=== PATIENT | female | born 1950 | race Caucasian/White ===

== ENCOUNTER → 2020-02-17 14:39 | Outpatient (CLI) | payer MEDICARE, OTHER, SELFPAY ==
--- NOTE | ~2020-02-17 | MM_ITS ---
EXAMINATION: MM screening ana BI w jose l HISTORY: Screening mammogram TECHNIQUE: Craniocaudal and mediolateral oblique 3-D tomosynthesis images were obtained and synthetic 2-D images were generated. CAD analysis was submitted and interpreted. COMPARISON: 09/19/2018, 09/04/2017, 02/03/2016 bilateral digital screening mammogram examinations BREAST PARENCHYMAL COMPOSITION: There are scattered areas of fibroglandular density. FINDINGS: Stable mild fibroglandular asymmetry. Biopsy markers are noted bilaterally. History of prio r bilateral breast benign biopsies. There is no evidence of suspicious mass, calcification, or shana ectural distortion to suggest malignancy in either breast. There has been no suspicious interval devine ge. IMPRESSION: 1. No mammographic evidence of malignancy. 2. Recommend routine screening mammography in one year. BI-RADS Category 2: Benign finding(s). Reviewed, dictated and finalized at location A.
== END ==
PROVIDERS: Visit Provider Nurse Practitioner
DX: Z12.31 Encounter for screening mammogram for malignant neoplasm of breast (principal)
CPT/HCPCS: 77063; 77067

== ENCOUNTER 2020-11-23 10:15 | Outpatient (RCR) | payer MEDICARE, OTHER, SELFPAY ==
--- NOTE | 2020-10-26 14:48 | PTOPEVAL ---
PHYSICAL THERAPY EVALUATION Thank you for referring Aimee Prieto to [facility].? Ofelia was evaluated for the dx of left wrist/metacarpal fx's. The patient is scheduled to be seen for therapy?2 x/week for 4 weeks. Please review, sign, date and return this plan of care AZAEL. I agree with and certify that the following plan of care is medically necessary. Referring Physician Date Attending Provider: Sumit Savage MD *PT Outpatient Evaluation Start: 10/26/20 12:30 Freq: Status: Active Protocol: Document 10/26/20 13:58 MLV (Rec: 10/26/20 14:43 MLV [id number]) Therapy Assessment Status Assessment Status Assessment Status Evaluation Evaluation Information Problem Diagnosis left hand metacarpal x 2 fx's, radial fx Onset 08/21/20 Cause tripped stepping up onto a curb and fell Additional Evaluation Detail The patient reports no issues with her left wrist or hand prior to falling. After the fall, the patient was put in a removable cast but did not require surgery. 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 The patient does the housework and some yardwork, both are currently modified or having family doing tasks. Diagnostic Tests X-Rays For This Problem Yes: multiple fx's; bone growth noted Pain Assessment Timing of Pain Assessment Timing of Pain Assessment Assessment Pain Scale Pain Scale Used Numeric (1 - 10) Self Report Pain Assessment Left Lateral Hand(s) Reported Pain Level 0 Pain Frequency Intermittent Other Pain Description bumping hand is 7 of 10 pain Pain Score Pain Score 0: Self Report Interventions Used Interventions Used By Clinicians Education Other Alleviating Interventions guarding Upper Extremity Range of Motion General Upper Extremity Range of Motion Gross Upper Extremity Range of Motion wrist active motion: right Comments flexion 67', extension 58', radial deviation 10', ulnar deviation 38'. Thumb abduction 62', opposition to 5th digit palmar crease , 53'. Finger motions WNL's left wrist; wrist extension 48
--- NOTE | 2020-11-07 08:30 | PCPTNOTE ---
Patient called & cancelled scheduled appointment this date-left message.
--- NOTE | 2020-11-23 11:06 | PTOPEVAL ---
PHYSICAL THERAPY DISCHARGE/RE-ASSESSMENT Thank you for referring Aimee Prieto to [facility] Ofelia has completed 8 visits for the dx of left wrist/hand fxs. She has met most goals with range/strength partially met. Plan to determine discharge/continuation plans for after her MD appt next week. DC if MD recommends. Please review, sign, date and return this plan of care AZAEL. I agree with and certify the following plan of care. Referring Physician Date Attending Provider: Sumit Savage MD *PT Outpatient Discharge Start: 10/26/20 12:30 Freq: Status: Active Protocol: Document 11/23/20 10:11 [facility] (Rec: 11/23/20 10:49 [facility] [id number]) Therapy Assessment Status Assessment Status Discharge Evaluation Information Problem Diagnosis left hand metacarpal x 2 fx's, radial fx Onset 08/21/20 Cause tripped stepping up onto a curb and fell Additional Evaluation Detail Patient feels she is about 50% improved with pain, motion and use of her hand. 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 The patient is compliant with her HEP and has mild soreness with some exercises/tolerable. The patient feels Pain Assessment Timing of Pain Assessment Timing of Pain Assessment Assessment Pain Scale Pain Scale Used Numeric (1 - 10) Self Report Pain Assessment Left Lateral Hand(s) Reported Pain Level 0 Radicular Pain Location 4 with overuse/activities Pain Aggravating Factors Exercise/Activity,Lifting Pain Behaviors None Pain Score Pain Score 0: Self Report Interventions Used Interventions Used By Clinicians Exercise,Ice,Manual Therapy Techniques Pain Relief Interventions Used By Exercise,Inactivity/Rest, Patient Medication Other Alleviating Interventions tylenol as needed Upper Extremity Range of Motion General Upper Extremity Range of Motion Gross Upper Extremity Range of Motion wrist active motion: right Comments flexion 67', extension 58', radial deviation 10', ulnar deviation 38'. Thumb abduction 62', opposition to 5th digit palmar crease , 53'. Finger motions WNL's left wrist; wrist extension 55', wrist flexion 49', radial
== END 2020-11-25 08:18 | disposition home or self-care (01) ==
LOC: ANHPT 10:15
PROVIDERS: PCP Family Medicine; Visit Provider Orthopaedic Surgery
DX: S62.309D Unspecified fracture of unspecified metacarpal bone, subsequent encounter for fracture with routine healing (principal)
CPT/HCPCS: 97110; 97140; 97162

== ENCOUNTER 2021-02-04 10:28 | Emergency (ER) | payer MEDICARE, OTHER, SELFPAY ==
[2021-02-04 10:39] VITALS: BP 126/53; PULSE 76; RESP 14; TEMP 37.3; O2SAT 99
--- NOTE | 2021-02-04 10:39 | ED.SKABFB ---
HPI - Skin/Abscess/Foreign Bdy General Chief complaint: Skin/Abscess/Foreign Body Stated complaint: Rash under both Breast, Body itching Time Seen by Provider: 02/04/21 10:39 Source: patient and RN notes reviewed Mode of arrival: ambulatory Limitations: no limitations History of Present Illness HPI narrative: 70-year-old female presents to the [facility] with complaints above rash under her breast since last night. States that she has been itchy all over for approximately 2 weeks, last night noticed a burning, mildly raised redness and itching under bilateral breasts. Slightly moist. Denies any fevers, nausea vomiting or diarrhea. Denies chest pain or abdominal pain. Has a history of type 2 diabetes, hypertension and anemia. Related Data Home Medications Medication Instructions Recorded Confirmed blood sugar diagnostic #10 each 07/09/19 02/04/21 qcjnmrrdaevy-ppfpthdn-bwuzcse-folic 1 tablet PO DAILY 01/07/20 02/04/21 acid 400 mcg-vit K1 20 mcg tablet losartan-hydrochlorothiazide 1 tablet PO DAILY 02/04/21 02/04/21 Allergies Allergy/AdvReac Type Severity Reaction Status Date / Time No Known Allergies Allergy Verified 01/16/21 15:27 Review of Systems Review of Systems: All systems reviewed & are unremarkable except as noted in HPI and below Constitutional: Constitutional: Reports no additional constitutional complaints, Denies chills and Denies fever(s) Eyes: Eyes: Reports no additional eye complaints ENT: Reports system reviewed and no additional complaints, except as documented Cardiovascular: Cardiovascular: Reports no additional cardiovascular complaints and Denies chest pain Respiratory: Respiratory: Reports no additional respiratory complaints, Denies cough and Denies dyspnea Gastrointestinal: Gastrointestinal: Reports no additional gastrointestinal complaints Musculoskeletal: Musculoskeletal: Reports no additional musculoskeletal complaints Integumentary/Breasts: Skin/Breast: Reports pruritus and Reports rash (Underneath bilateral breasts) Neurologic: Reports system reviewed and no additional complaints, except as documented Psychiatric: Psychiatric: Reports no additional psychiatric complaints Allergic/Immunologic: Allergic/Immunologic: Reports no additional allergic/immunologic complaints [facility] Past Medical History Medical History Essential (primary) hypertension History of colon polyps Metacarpal bone fracture Left fourth and fifth metacarpal bases spring 2020 Osteopenia Radial styloid fracture left radial styloid spring 2020 Type 2 diabetes mellitus without complications Hemoglobin A1C 5.6 in 07/2020 Surgical History Surgical History History of cataract extraction History of cholecystectomy History of open reduction and internal fixation (ORIF) procedure right ankle- 2007 Family History Family History Father Acute myocardial infarction Mother Family history of chronic obstructive pulmonary disease Other Diabetes mellitus Family history of hypercholesterolemia Family history of throat cancer Family history of thyroid disease Social History Social History Smoking status: Never smoker Alcohol intake: never Gender identity (if verbalized by the patient): Female Comments At the time of my signature, I reviewed and agree with the nursing past medical, surgical, social, and family history. There is no relevant family history pertinent to the patient complaint. Exam Const: General: healthy appearing, no acute distress and alert Nutritional Appearance: well nourished Orientation/consciousness: patient oriented x3 Limitations: no limitations HENMT: Head: normal to inspection Ears: external ears normal, TM's normal bilaterally and EAC's normal Eyes: Conjunctivae: con
== END 2021-02-04 10:53 | disposition home or self-care (01) ==
PROVIDERS: Emergency Provider Nurse Practitioner; Referring Provider Family Medicine
DX: B37.2 Candidiasis of skin and nail (principal); I10 Essential (primary) hypertension; E11.9 Type 2 diabetes mellitus without complications; M81.0 Age-related osteoporosis without current pathological fracture
CPT/HCPCS: 99213; G0463

== ENCOUNTER → 2021-04-03 02:36 | Outpatient (CLI) | payer MEDICARE, OTHER, SELFPAY ==
[2021-04-03 16:20] LABS: SARS-CoV-2 RNA PCR Negative
== END ==
PROVIDERS: PCP Nurse Practitioner Family; Visit Provider Internal Medicine Gastroenterology
DX: Z01.812 Encounter for preprocedural laboratory examination (principal); Z20.822 Contact with and (suspected) exposure to COVID-19
CPT/HCPCS: C9803; U0003; U0005

== ENCOUNTER 2021-04-06 01:15 | Day surgery (SDC) | payer MEDICARE, OTHER, SELFPAY ==
[2021-03-23 13:33] VITALS: BMI 27.3
--- NOTE | 2021-04-05 12:45 | PM.HPGS ---
History of Present Illness History of Present Illness Consent: Risks, benefits, and alternatives have been discussed and questions answered. Patient agrees to proceed with procedure. Chief complaint: ELZA Narrative: Aimee Prieto is a 71 year old female who is referred for evaluation of iron deficiency anemia first noted on routine lab work 6-8 weeks ago when she presented to primary care for c/o of fatigue. She denies any overt blood. She denies any N/V/reflux/dysphagia/odynophagia. States that for past 1-2 months she will have epigastric pain that she describes as feeling hungry. States this only happens 2-3 times a month and she will treat it with Prilosec with good results. She denies any radiation of pain and states it happens at random times. She denies any change in her bowel movements. no diarrhea or constipation. No bloody stools or hematochezia. Since starting oral iron, reports she mild constipation and darker stools. She takes Aleve occasional for neck pain and left wrist pain. Her weight is stable and her appetite is good. Her last colonoscopy was in [address] Miller, hemorrhoids only. Never had an EGD. Review of Systems Review of Systems: All systems reviewed & are unremarkable except as noted in HPI and below PMFSH Past Medical History Medical History Essential (primary) hypertension History of colon polyps Metacarpal bone fracture Left fourth and fifth metacarpal bases spring 2020 Osteopenia Radial styloid fracture left radial styloid spring 2020 Type 2 diabetes mellitus without complications Hemoglobin A1C 5.6 in 07/2020 Surgical History Surgical History History of cataract extraction History of cholecystectomy History of open reduction and internal fixation (ORIF) procedure right ankle- 2007 Family History Family History Father Acute myocardial infarction Mother Family history of chronic obstructive pulmonary disease Other Diabetes mellitus Family history of hypercholesterolemia Family history of throat cancer Family history of thyroid disease Social History Social History Smoking status: Never smoker Alcohol intake: never Substance use: never Substance use type: does not use Living arrangements: with family Gender identity (if verbalized by the patient): Female Spiritual care concerns: No Meds Home Medications and Allergies Home Medications Medication Instructions Recorded Confirmed Type wckyewjlnxib-nkdbinrz-envkdmt-folic 1 tablet PO DAILY 01/07/20 03/23/21 History acid 400 mcg-vit K1 20 mcg tablet metformin 500 mg tablet 500 mg PO BID #180 ea 01/10/21 03/23/21 Rx ferrous sulfate 325 mg (65 mg 325 mg PO DAILY #30 tablet 01/13/21 03/23/21 Rx iron) tablet losartan-hydrochlorothiazide 1 tablet PO DAILY 02/04/21 03/23/21 History Allergies Allergy/AdvReac Type Severity Reaction Status Date / Time No Known Allergies Allergy Verified 04/06/21 08:45 Exam Resp: Auscultation: clear to auscultation bilaterally Cardio: Rate: regular rate Rhythm: regular rhythm GI: GI Palp: Yes Soft to palpation and No Tenderness to palpation present (GI) Assessment and Plan Assessment and plan (1) Iron deficiency anemia: Code(s): D50.9 - Iron deficiency anemia, unspecified Status: Acute Assessment and Plan: EGD with possible biopsy or dilatation or cautery. Colonoscopy with possible biopsy or polypectomy or cautery or injection of substances.
[2021-04-06 08:46] VITALS: BP 105/57; PULSE 119; RESP 18; TEMP 36.2; O2SAT 98
[2021-04-06] MEDS: LACTATED RINGERS 1,000 ML 150 ML IV CONT (08:54)
--- NOTE | 2021-04-06 08:58 | P.PNAN_ITS ---
Anes - Initial Pre Proc Eval Procedure: Operation Date: 04/06/21 09:45 Proposed Procedures p Esophagogastroduodenoscopy & Colonoscopy - Obey De Dios MD Date/Time: 04/06/21 08:58 Surgeon: Obey De Dios MD Pre Op Diagnosis: ELZA Patient Data Age: 71 Gender: F Height: 1.57 m Weight: 66 kg Last Vital Signs Temp 36.2 C L 04/06/21 08:46 Pulse 119 H 04/06/21 08:46 Resp 18 04/06/21 08:46 BP 105/57 L 04/06/21 08:46 Pulse Ox 98 04/06/21 08:46 Allergies Allergy/AdvReac Type Severity Reaction Status Date / Time No Known Allergies Allergy Verified 04/06/21 08:45 Home Medications Medication Instructions Recorded Confirmed Type ytrufnrulxiw-erbpwsct-uxfeyzr-folic 1 tablet PO DAILY 01/07/20 03/23/21 History acid 400 mcg-vit K1 20 mcg tablet metformin 500 mg tablet 500 mg PO BID #180 ea 01/10/21 03/23/21 Rx ferrous sulfate 325 mg (65 mg 325 mg PO DAILY #30 tablet 01/13/21 03/23/21 Rx iron) tablet losartan-hydrochlorothiazide 1 tablet PO DAILY 02/04/21 03/23/21 History Patient hx anesthesia problems: none Family hx anesthesia problems: none Results Review: All pre-operative results and documents have been reviewed as part of the pre-operative evaluation. [facility] Past Medical History Medical History Essential (primary) hypertension History of colon polyps Metacarpal bone fracture Left fourth and fifth metacarpal bases spring 2020 Osteopenia Radial styloid fracture left radial styloid spring 2020 Type 2 diabetes mellitus without complications Hemoglobin A1C 5.6 in 07/2020 Surgical History Surgical History History of cataract extraction History of cholecystectomy History of open reduction and internal fixation (ORIF) procedure right ankle- 2007 Family History Family History Father Acute myocardial infarction Mother Family history of chronic obstructive pulmonary disease Other Diabetes mellitus Family history of hypercholesterolemia Family history of throat cancer Family history of thyroid disease Social History Social History Smoking status: Never smoker Alcohol intake: never Substance use: never Substance use type: does not use Living arrangements: with family Gender identity (if verbalized by the patient): Female Spiritual care concerns: No Anes - Eval Final PreProcedure Day of Procedure 04/06/21 08:58 Patient weight: overweight Heart: regular rate and rhythm Lungs: clear to auscultation and normal air movement Airway: Mallampati scale class II Neurological: alert and oriented Last oral intake: >/= 8 hours ASA classification: III Emergent: no Anesthetic plan: proceed Anesthesia type and monitoring: general GIVS Results Review: All pre-operative results and documents have been reviewed as part of the pre-operative evaluation. Informed Consent: The patient's anesthetic plan and its attendant risks and benefits were discussed with the patient/family/POA. Questions were solicited and answers provided to the satisfaction of the patient/fami
[2021-04-06 09:02] LABS: Glucose Point of Care 115 mg/dl (65-105)
--- NOTE | 2021-04-06 10:03 | SUR.OPER ---
EGD START 939; END 944. COLONOSCOPY START 952; END 1001.
[2021-04-06 10:09] VITALS: BP 81/44; PULSE 94; RESP 19; O2SAT 99
[2021-04-06 10:19] VITALS: BP 105/66; PULSE 96; RESP 21; O2SAT 99
[2021-04-06 10:29] VITALS: BP 96/52; PULSE 97; RESP 15; O2SAT 100
== END 2021-04-06 10:42 | disposition home or self-care (01) ==
PROVIDERS: PCP Nurse Practitioner Family; Visit Provider Internal Medicine Gastroenterology
PROC: 0DJ08ZZ Inspection of Upper Intestinal Tract, Via Natural or Artificial Opening Endoscopic (ICD-10-PCS; CPT 43235; principal; 2021-04-06 09:45)
DX: D50.9 Iron deficiency anemia, unspecified (principal); I85.00 Esophageal varices without bleeding; K21.9 Gastro-esophageal reflux disease without esophagitis; K29.70 Gastritis, unspecified, without bleeding; K31.89 Other diseases of stomach and duodenum; I10 Essential (primary) hypertension; E11.9 Type 2 diabetes mellitus without complications; M85.80 Other specified disorders of bone density and structure, unspecified site; Z86.010 Personal history of colon polyps; Z79.84 Long term (current) use of oral hypoglycemic drugs
CPT/HCPCS: 45378; 43239; 82948; 87081; 88305; J2704; J7120

== ENCOUNTER 2021-05-08 10:05 | Outpatient (CLI) | payer MEDICARE, OTHER, SELFPAY ==
--- NOTE | ~2021-05-08 | US_ITS ---
EXAMINATION: US abdomen complete DATE: 05/08/2021 11:11 INDICATION: Esophageal varices TECHNIQUE: Multiple grayscale and Doppler ultrasound images of the abdomen were obtained. COMPARISON: None FINDINGS: Abdominal aorta is normal in caliber measuring 2.0 cm AP proximally, 1.6 cm in the mid aorta and 1.3 cm the distal aorta. Right and left common iliac arteries measure 10 mm in diameter. The inferior jerilyn a cava is normal. The pancreatic head and body are normal in appearance. The pancreatic tail is not visualized. The liver demonstrates coarsened parenchymal echotexture with nodular surface consistent with cirrhosis. No liver lesion identified. No intrahepatic biliary duct dilation suspected. Portal venous flow was seen in the hepatopetal, normal direction and has normal Doppler waveform. Gallbladde r is not visualized and reportedly surgically absent. The common bile duct measures 5 mm in maximal d iameter which is normal. There is normal renal contour and echogenicity bilaterally. The right kidney measures 11.3 x 4.7 x 4.8 cm and the left 10.0 x 4.0 x 5.0 cm. There are no focal renal lesions makenzie ntified. There is no hydronephrosis. Mild splenomegaly measuring 14.1 cm craniocaudally. IMPRESSION: 1. Cirrhosis with mild splenomegaly suggesting associated portal venous hypertension. Reviewed, dictated and finalized at location B. [employer] IMPRESSION: 1. Cirrhosis with mild splenomegaly suggesting associated portal venous hyperte nsion.
== END 2021-05-08 10:06 | disposition home or self-care (01) ==
LOC: ANHIMG 10:07
PROVIDERS: PCP Nurse Practitioner Family; Visit Provider Internal Medicine Gastroenterology
DX: I85.00 Esophageal varices without bleeding (principal); K74.60 Unspecified cirrhosis of liver; R16.1 Splenomegaly, not elsewhere classified
CPT/HCPCS: 76700

== ENCOUNTER 2021-07-05 17:24 | Inpatient (IN) | payer MEDICARE, OTHER, SELFPAY ==
[2021-07-05] VITALS (13 sets, daily range): BP systolic 78–110; BP diastolic 38–80; PULSE 96–141; RESP 16–22; TEMP 36.5–36.6; O2SAT 100; BMI 27.6
--- NOTE | ~2021-07-05 | US_ITS ---
EXAMINATION: US abdomen complete EXAM DATE: 07/07/2021 16:23 INDICATION: burning LLQ pain. TECHNIQUE: Multiple grayscale and Doppler images of the complete abdomen were obtained (by a technolo paulo who performed the scan) and subsequently reviewed. There is no prior study for comparison. FINDINGS: The abdominal aorta is normal in caliber. Visualized portion IVC is patent. The pancreatic head a nd body are normal in appearance. The pancreatic tail is not visualized. There is echogenic liver parenchyma, hepatic steatosis. Nodular liver contour consistent with cirrhos is. There are no focal liver lesions identified. There is no evidence of intrahepatic biliary duct dilation. Portal venous flow was seen in the hepatopedal, normal direction and has normal Doppler wa veform. There is recanalized ligamentum teres indicating portal hypertension. Common bile duct measures 11 mm, which is dilated but not uncommon finding for postcholecystectomy st atus. The gallbladder fossa is unremarkable. Right kidney: There is normal contour and echogenicity. It measures 11.2 x 4.8 x 4.6 centimeters. There are no focal renal lesions identified. There is no hydronephrosis. Left kidney: There is normal contour and echogenicity. It measures 10.3 x 5.0 x 5.1 centimeters. T here are no focal renal lesions identified. There is no hydronephrosis. Mild splenomegaly, spleen measuring 14 cm. IMPRESSION: 1. Cirrhosis, hepatic steatosis, portal hypertension. 2. Mild splenomegaly. Reviewed, dictated and finalized at location G. 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
--- NOTE | ~2021-07-05 | CT_ITS ---
EXAMINATION: CT abdomen pelvis w con DATE: 07/06/2021 11:54 INDICATION: Abdominal pain. Gastrointestinal bleed. TECHNIQUE: Computed tomography (CT) of the abdomen and pelvis was performed with 100 mL Omnipaque-350 intravenous contrast. Automated exposure control and iterative reconstruction technique were employe d. The dose-length product was 450.44 mGy-cm. COMPARISON: None FINDINGS: Minimal atelectasis at the lung bases. Heart size is normal. No pericardial or pleural effusion. Nodu lar cirrhotic liver. Portal venous hypertension with recanalization of a dilated umbilical vein which extends via small abdominal wall collaterals to drain into the bilateral hypogastric veins. There is also mildly dilated coronary vein which drains into multiple small gastroesophageal varices. Mild di lation of the common bile duct to 10 mm which along with minimal central intrahepatic third ductal di lation is within normal limits post cholecystectomy. Borderline splenomegaly. Lateral adrenal glands are normal. A couple bilateral subcentimeter low-attenuation renal cysts. 2 mm nonobstructing stone a t the lower pole of the right kidney. Pancreas appears normal. There is some mesenteric, peripancreat ic as well as retroperitoneal stranding with small amounts of fluid tracking along the left and right anterior pararenal spaces and along the left paracolic gutter. Mild diffuse colonic wall thickening which appears most prominent along the proximal colon which could be due to hepatic colopathy or othe r nonspecific colitis including infectious, inflammatory or less likely ischemic in etiology. No td l obstruction. Bladder is normal. Prominent parametrial vessels and bilateral gonadal veins which cou ld be seen with pelvic vascular congestion syndrome which is a clinical diagnosis. Uterus and bilater al adnexa are otherwise unremarkable. Trace amount of scattered ascites in the abdomen and pelvis. No lisset peroneal gas. No pathologically enlarged abdominal or pelvic lymphadenopathy. Mild thoracolumb ar spondylosis. There are bridging osteophytes at multiple levels in the spine, consistent with diffu se idiopathic skeletal hyperostosis (DISH). IMPRESSION: 1. Cirrhosis with portal venous hypertension including prominent dilated umbilical vein and small gas troesophageal varices. 2. Diffuse mild colonic wall thickening most prominent proximally with differential including hepatic colopathy or other nonspecific colitis including infectious, inflammatory or less likely ischemic in etiology. 3. Mesenteric, peripancreatic and retroperitoneal edema with small amounts of retroperitoneal fluid a nd trace amount of ascites. This likely related to cirrhosis and portal venous hypertension but would correlate with amylase and lipase levels to exclude less likely acute pancreatitis. 4. 2 mm nonobstructing right renal stone. Reviewed, dictated and finalized at location A. GER OF PROCUREMENT IMPRESSION: 1. Cirrhosis with portal venous hypertension including prominent dilated umbili jose vein and small gastroesophageal varices. 2. Diffuse mild colonic wall thickening most prominent proximally with differen tial including hepatic colopathy or other nonspecific colitis including infecti ous, inflammatory or less likely ischemic in etiology. 3. Mesenteric, peripancreatic and retroperitoneal edema with small amounts of r etroperitoneal fluid and trace amount of ascites. This likely related to cirrho sis and portal venous hypertension but would correlate with amylase and lipase levels to exclude less likely acute pancreatitis. 4. 2 mm nonobstructing right renal stone.
--- NOTE | 2021-07-05 17:40 | ECG_ITS ---
Measurements Intervals [place] Rate: 129 P: 77 OK: 157 QRS: 28 QRSD: 89 T: 66 QT: 321 QTc: 471 Interpretive Statements SINUS TACHYCARDIA NONSPECIFIC ST & T-WAVE ABNORMALITY- DIFFUSE LEADS ABNORMAL ECG Electronically Signed On 07-05-2021 20:04:35 CREDIT ADVISOR by Deion Woodard D.O.
[2021-07-05 17:54] LABS: Basophils Absolute Auto 0.1 K/mm3 (0.0-0.1); Basophils Percent Auto 0.8 % (0.2-1.2); Eosinophils Absolute Auto 0.1 K/mm3 (0-0.3); Eosinophils Percent Auto 1.1 % (0-4.4); Hematocrit 29.2 % (37.0-47.0); Hemoglobin 9.2 g/dL (12.0-15.0); Immature Granulocyte Absolute 0.05 K/mm3 (0.00-0.031); Immature Granulocyte Percent A 0.4 % (0-0.5); Lymphocytes Absolute Auto 2.45 K/mm3 (0.9-3.2); Lymphocytes Percent Auto 18.4 % (18.3-44.2); Mean Corpuscular HGB Conc 31.5 g/dl (32-36); Mean Corpuscular Hemoglobin 28.8 pg (26-34); Mean Corpuscular Volume 91.5 fl (80-100); Mean Platelet Volume 10.4 fl (7.4-10.4); Monocytes Absolute Auto 0.9 K/mm3 (0.1-0.6); Monocytes Percent Auto 6.5 % (2.6-8.5); Neutrophils Absolute Auto 9.7 K/mm3 (1.3-6.7); Neutrophils Percent Auto 72.8 % (45.5-73.1); Platelet Count Result 314 k/mm3 (150-375); Red Blood Count 3.19 M/mm3 (4.2-5.4); Red Cell Distribution Width 16.5 % (11.5-14.5); White Blood Count 13.3 K/mm3 (4.5-10.0)
[2021-07-05 18:02] LABS: Alanine Aminotransferase 36 U/L (4-35); Alkaline Phosphatase 78 U/L (38-126); Anion Gap 8 mmol/L (8-16); Aspartate Amino Transferase 44 U/L (14-36); Bilirubin,Total 0.6 mg/dL (0.2-1.3); Blood Urea Nitrogen 36 mg/dL (7-17); Calcium 10.6 mg/dL (8.4-10.2); Carbon Dioxide 20 mmol/L (22-30); Chloride 112 mmol/L (98-107); Estimated CRCL calculation 65 ml/min; Estimated Glomerular Filt Rate > 60; Glucose 159 mg/dL (65-110); Potassium 3.9 mmol/L (3.4-5.0); Sodium 140 mmol/L (137-145)
[2021-07-05 18:04] LABS: Alanine Aminotransferase 36 U/L (4-35); Albumin Level 3.9 g/dL (3.5-5.1); Alkaline Phosphatase 79 U/L (38-126); Anion Gap 8 mmol/L (8-16); Aspartate Amino Transferase 41 U/L (14-36); Bilirubin,Total 0.6 mg/dL (0.2-1.3); Blood Urea Nitrogen 36 mg/dL (7-17); Calcium 10.4 mg/dL (8.4-10.2); Carbon Dioxide 19 mmol/L (22-30); Chloride 112 mmol/L (98-107); Estimated CRCL calculation 65 ml/min; Estimated Glomerular Filt Rate > 60; Glucose 162 mg/dL (65-110); Potassium 3.9 mmol/L (3.4-5.0); Sodium 139 mmol/L (137-145)
[2021-07-05 18:14] LABS: Troponin I < 0.012 ng/mL (0.000-0.034)
[2021-07-05] MEDS: SODIUM CHLORIDE 0.9% IV 1,000 ML 999 ML IV CONT (18:35)
--- NOTE | 2021-07-05 19:25 | ED.DIZZY ---
HPI - Dizziness General Chief Complaint: Dizziness Stated Complaint: lightheaded Time Seen by Provider: 07/05/21 17:33 Source: patient and family Mode of arrival: wheelchair Limitations: no limitations History of Present Illness HPI Narrative: 71-year-old with a history of hypertension, cirrhosis of the liver, esophageal varices here with complaints of dizziness since this morning. Patient also complains of black-colored stool. She states that she was nauseated and threw up prior to coming to the ER. She denies any chest pain, shortness of breath. No history of any abdominal pain. She states that she is taking iron as prescribed by Dr. Va ROQUE elicited complaint: lightheadedness Pertinent past history: anemia Onset (ago): day(s) (1) Timing: sudden onset Severity: moderate Description: lightheadedness Context: change in body position Exacerbating factors: nothing Relieving factors: nothing Associated symptoms: nausea, vomiting and melena Related Data Home Medications Medication Instructions Recorded Confirmed fvpouhsqkdnr-ooddrbwc-bafemuw-folic 1 tablet PO DAILY 01/07/20 06/27/21 acid 400 mcg-vit K1 20 mcg tablet losartan-hydrochlorothiazide 1 tablet PO DAILY 02/04/21 06/27/21 cholecalciferol (vitamin D3) 100 100 mcg PO DAILY 06/27/21 06/27/21 mcg (4,000 unit) tablet Allergies Allergy/AdvReac Type Severity Reaction Status Date / Time No Known Allergies Allergy Verified 07/05/21 17:49 Review of Systems Review of Systems: All systems reviewed & are unremarkable except as noted in HPI and below Constitutional: Constitutional: Reports no additional constitutional complaints Eyes: Eyes: Reports no additional eye complaints ENT: Reports system reviewed and no additional complaints, except as documented Cardiovascular: Cardiovascular: Reports no additional cardiovascular complaints Respiratory: Respiratory: Reports no additional respiratory complaints Gastrointestinal: Gastrointestinal: Reports as per HPI Musculoskeletal: Musculoskeletal: Reports no additional musculoskeletal complaints Integumentary/Breasts: Skin/Breast: Reports system reviewed and no additional complaints, except as docu Neurologic: Reports system reviewed and no additional complaints, except as documented Psychiatric: Psychiatric: Reports no additional psychiatric complaints Endocrine: Endocrine: Reports no additional endocrine complaints PMFSH Past Medical History Medical History Essential (primary) hypertension History of colon polyps Metacarpal bone fracture Left fourth and fifth metacarpal bases spring 2021 Osteopenia Radial styloid fracture left radial styloid spring 2020 Type 2 diabetes mellitus without complications Hemoglobin A1C 5.6 in 07/2020 Surgical History Surgical History History of cataract extraction History of cholecystectomy History of open reduction and internal fixation (ORIF) procedure right ankle- 2007 Family History Family History Father Acute myocardial infarction Mother Family history of chronic obstructive pulmonary disease Other Diabetes mellitus Family history of hypercholesterolemia Family history of throat cancer Family history of thyroid disease Social History Social History Smoking status: Never smoker Alcohol intake: never Substance use: never Substance use type: does not use Gender identity (if verbalized by the patient): Female Spiritual care concerns: No Exam Narrative: GENERAL: Well-appearing, well-nourished, and in no acute distress. HEAD: Normocephalic, atraumatic. EYES: PERRLA and EOMI. ENT: Nares clear, no rhinorrhea or epistaxis. Mucous membranes moist. NECK: Supple. CHEST: Clear to auscultation. No respiratory distress. HEART: Regul
[2021-07-05 20:18] LABS: Hematocrit 26.4 % (37.0-47.0); Hemoglobin 8.1 g/dL (12.0-15.0)
[2021-07-05] MEDS: PANTOPRAZOLE SODIUM IV 40 MG VIAL IV PUSH (20:41)
[2021-07-05 20:54] LABS: SARS-CoV-2 RNA PCR Negative
[2021-07-05] MEDS: SODIUM CHLORIDE 0.9% IV 1,000 ML 125 ML IV CONT (21:53)
--- NOTE | 2021-07-05 23:37 | PM.IMHP ---
H&P: HPI History of Present Illness Date/Time: 07/05/21 23:00 This is a 71-year-old female patient with a has medical history of having cirrhosis of the liver was some esophageal varices. The patient sees Dr. De Dios and states that she saw him approximately 2 weeks ago. Patient had a colonoscopy April of last year. Although she has had a history of having polyps is reported that her colonoscopy was normal that time. The patient also had an EGD which showed some esophageal varices. The patient stated that she felt very dizzy today and nauseated and she noticed some black colored stools today. She stated that she called Dr. De Dios who told her if she continue to feel this way then she should go to the emergency room. She is complaining of some left lower quadrant discomfort and tenderness. Her initial H&H was 9.2 and 29.2 the repeat H&H is 8.[address] De Dios has been consulted. The patient was started on IV fluids and Protonix. The patient is being admitted to inpatient status on 07/05/2019 to Chief Complaint: Dark stools and dizziness Review of Systems Review of Systems: All systems reviewed & are unremarkable except as noted in HPI and below Constitutional: Constitutional: Reports as per HPI and Reports no additional constitutional complaints Eyes: Eyes: Reports as per HPI and Reports no additional eye complaints ENT: Reports system reviewed and no additional complaints, except as documented and Reports Normal hearing present Cardiovascular: Cardiovascular: Reports no additional cardiovascular complaints Respiratory: Respiratory: Reports no additional respiratory complaints and Reports no additional respiratory complaints Gastrointestinal: Gastrointestinal: Reports as per HPI and Reports no additional gastrointestinal complaints Musculoskeletal: Musculoskeletal: Reports no additional musculoskeletal complaints Integumentary/Breasts: Skin/Breast: Reports system reviewed and no additional complaints, except as docu and Reports as per HPI Neurologic: Reports system reviewed and no additional complaints, except as documented, Reports as per HPI and Reports Normal hearing present Psychiatric: Psychiatric: Reports no additional psychiatric complaints and Reports as per HPI Endocrine: Endocrine: Reports no additional endocrine complaints Hematologic/Lymphatic: Hematologic/Lymphatic: Reports no additional hematologic/lymphatic complaints Allergic/Immunologic: Allergic/Immunologic: Reports no additional allergic/immunologic complaints PMFSH Past Medical History Medical History Essential (primary) hypertension History of colon polyps Metacarpal bone fracture Left fourth and fifth metacarpal bases spring 2020 Osteopenia Radial styloid fracture left radial styloid spring 2020 Type 2 diabetes mellitus without complications Hemoglobin A1C 5.6 in 07/2020 Surgical History Surgical History (Updated 07/05/21 @ 23:43 by Sirisha Almanza NP) History of cataract extraction History of cholecystectomy History of open reduction and internal fixation (ORIF) procedure right ankle- 2007 left wrist Family History Family History Father Acute myocardial infarction Mother Family history of chronic obstructive pulmonary disease Other Diabetes mellitus Family history of hypercholesterolemia Family history of throat cancer Family history of thyroid disease Social History Social History (Updated 07/05/21 @ 23:44 by Sirisha Almanza NP) Social History: the patient lives home alone and is . She had 3 children and her son recently from [place]. Patient does not drink alcohol and is lifelong nonsmoker. She does not use any marijuana or illicit drugs. She does not have a durable power commercial litigation attorney for healthcare. 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 Code status full code Smo
--- NOTE | 2021-07-05 23:47 | ADMGEN ---
This patient, Aimee Prieto, was admitted to [facility] Surg Room 302-01 at 2200. Patient/family oriented to hospital policies and general routines including ID bracelet, bed and alarms, visiting hours, pain management, procedures, bathroom and other care routines, personal items, smoking policy, room service/diet, and visiting hours. Information on how to activate the Rapid Response Team has been discussed. Patient/Family are encouraged to report perceived risks to care and to ask questions if they do not understand what they are told or what they should do.
[2021-07-06] VITALS (16 sets, daily range): BP systolic 85–111; BP diastolic 30–50; PULSE 72–92; RESP 16–20; TEMP 36.2–37; O2SAT 93–100
[2021-07-06 00:23] LABS: Glucose Point of Care 126 mg/dl (65-105)
[2021-07-06] MEDS: ACETAMINOPHEN 325 MG TABLET 650 MG PO ×4 (00:24→20:44)
[2021-07-06] MEDS: OCTREOTIDE ACETATE 50 MCG/ML VIAL IV PUSH (01:06)
[2021-07-06 01:26] LABS: Hemoglobin 6.3 g/dL (12.0-15.0)
[2021-07-06 01:27] LABS: Hematocrit 20.6 % (37.0-47.0)
[2021-07-06] MEDS: SODIUM CHLORIDE 0.9% IV 250 ML 30 ML IV CONT (03:40)
[2021-07-06] MEDS: TUBING, BLOOD PLUM PUMP TUBING 1 EACH XX (03:41)
[2021-07-06 05:47] LABS: Glucose Point of Care 125 mg/dl (65-105)
--- NOTE | 2021-07-06 07:16 | WPDGIPROGNO ---
Progress Note: A&P Assessment and Plan (1) Melena: Code(s): K92.1 - Melena Status: Acute Assessment and Plan: she has been on iron stools have been dark but yesterday they were darker and of a different consistency, consistent with melena. we are awaiting repeat CBC after blood transfusion. I have ordered a stat protime (2) Esophageal varices: Code(s): I85.00 - Esophageal varices without bleeding Status: Acute Assessment and Plan: These were found incidentally when she was being investigated for anemia a few months ago. She has had no hematemesis. EGD will be done today (3) Cirrhosis: Code(s): K74.60 - Unspecified cirrhosis of liver Status: Acute Assessment and Plan: studies were negative for hepatitis, for Sergey's disease, autoimmune liver disease etcetera. 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 Just yesterday she and I were discussing pricing her on a nonselective beta-lora if okay with her primary care physician as we would need to decrease the dose of her normal antihypertensive. (4) Abdominal pain: Code(s): R10.9 - Unspecified abdominal pain Status: Acute Assessment and Plan: Just in the last few weeks she has noticed discomfort in left lower quadrant. A colonoscopy last fall was unremarkable. Will obtain CT scan of abdomen Subjective Date/time seen: 07/06/21 07:16 Review of Systems Review of Systems: All systems reviewed & are unremarkable except as noted in HPI and below Exam Const: General: alert Orientation/consciousness: patient oriented x3 Resp: Auscultation: clear to auscultation bilaterally Cardio: Rhythm: regular rhythm GI: Inspection: normal to inspection GI Palp: Yes Soft to palpation, No Tenderness to palpation present (GI) and Yes Hepatomegaly present ( Liver edge 4-5 cm below RCM) Auscultation: normal bowel sounds Neuro: General: patient oriented x3 Objective Data Vital Signs Vital Signs: Vital Signs - 24 hr 07/05/21 17:28 07/05/21 17:52 07/05/21 17:56 Temperature 36.6 C Pulse Rate 138 H 133 H 141 H Respiratory Rate 18 Blood Pressure 105/59 L 95/41 L 78/38 L Pulse Oximetry 100 07/05/21 19:22 07/05/21 19:31 02/02/22 19:53 Temperature Pulse Rate 108 H 104 H 104 H Respiratory Rate 17 22 H 20 Blood Pressure Pulse Oximetry 07/05/21 20:00 07/05/21 20:01 07/05/21 20:15 Temperature Pulse Rate 106 H 104 H 103 H Respiratory Rate 17 19 16 Blood Pressure 110/46 L 97/80 L Pulse Oximetry 100 07/05/21 20:16 07/05/21 20:30 07/05/21 22:00 Temperature 36.5 C Pulse Rate 100 107 H 96 Respiratory Rate 16 19 18 Blood Pressure 102/52 L 90/42 L Pulse Oximetry 100 100 100 07/05/21 23:29 07/06/21 04:05 07/06/21 04:22 Temperature 36.8 C 36.6 C Pulse Rate 96 89 83 Respiratory Rate 19 20 20 Blood Pressure 85/41 L 90/37 L Pulse Oximetry 100 98 98 07/06/21 05:22 07/06/21 06:00 07/06/21 06:22 Temperature 36.4 C L 36.6 C 36.6 C Pulse Rate 79 81 81 Respiratory Rate 18 18 18 Blood Pressure 94/43 L 86/43 L 86/43 L Pulse Oximetry 100 98 98 Intake/Output Intake/Output: Intake & Output 07/03/21 07/04/21 07/05/21 07/06/21 23:59 23:59 23:59 23:59 Intake Total 1000 550 Output Total 200 Balance 1000 350 Meds/Results Medications: Active Medications Generic Name Dose Route Start Last Admin Trade Name Freq PRN Reason Stop Dose Admin Acetaminophen 650 mg 07/05/21 19:22 07/06/21 04:29 Acetaminophen 325 Mg Tablet PO 650 mg Q4H PRN Administration Mild Pain (1-3) or Fever Dextrose 12.5 gm 07/05/21 23:51 Dextrose 50% 25 Gm/50 Ml Syringe IV PUSH PRN PRN Hypoglycemia Protocol Glucagon 1 mg 07/05/21 23:51 Glucagon For Inj 1 Mg Vial IM PRN PRN Hypoglycemia Protocol Glucose 15 gm 07/05/21 23:51 Glucose Oral Gel 15 Gm Of Glucse In 37.5 Gm Tube PO PRN PRN Hypoglycemia Pro
--- NOTE | 2021-07-06 07:23 | WPDGICN ---
Assessment and Plan Assessment and plan (1) Melena: Code(s): K92.1 - Melena Status: Acute Assessment and Plan: she has been on iron stools have been dark but yesterday they were darker and of a different consistency, consistent with melena. we are awaiting repeat CBC after blood transfusion. I have ordered a stat protime (2) Esophageal varices: Code(s): I85.00 - Esophageal varices without bleeding Status: Acute Assessment and Plan: These were found incidentally when she was being investigated for anemia a few months ago. She has had no hematemesis. EGD will be done today (3) Cirrhosis: Code(s): K74.60 - Unspecified cirrhosis of liver Status: Acute Assessment and Plan: studies were negative for hepatitis, for Sergey's disease, autoimmune liver disease etcetera. 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 Just yesterday she and I were discussing pricing her on a nonselective beta-lora if okay with her primary care physician as we would need to decrease the dose of her normal antihypertensive. (4) Abdominal pain: Code(s): R10.9 - Unspecified abdominal pain Status: Acute Assessment and Plan: Just in the last few weeks she has noticed discomfort in left lower quadrant. A colonoscopy last fall was unremarkable. Will obtain CT scan of abdomen GI Consult Note Consult date/time: 07/06/21 07:23 HPI: Aimee Prieto is a 71 year old female who I initially saw this patient a few months ago when she was referred for evaluation of iron deficiency anemia first noted on routine lab work 6-8 previously when she presented to primary care for c/o of fatigue. She denies any overt blood. She denies any N/V/reflux/dysphagia/odynophagia. States that for past 1-2 months she will have epigastric pain that she describes as feeling hungry. States this only happens 2-3 times a month and she will treat it with Prilosec with good results. She denies any radiation of pain and states it happens at random times. She denies any change in her bowel movements. no diarrhea or constipation. No bloody stools or hematochezia. Since starting oral iron, reports she mild constipation and darker stools. She takes Aleve occasional for neck pain and left wrist pain. Her weight is stable and her appetite is good. endoscopy at that time revealed grade 2 esophageal varices which was a surprise. We then did additional studies for me that she had cirrhosis. In the last week we did laboratory studies to rule out other causes. Serum ferritin was already low ruling out hemochromatosis. She was negative for Sergey's disease, autoimmune liver disease, chronic hepatitis, and she does not drink alcohol. There is no family history. When I spoke to yesterday she mentioned that she had had a dark stool, although she is taking iron but also felt lightheaded. She has for gotten to do her CBC and INR last week and was going to get that this morning but on my advice she came to the emergency room because of her persistent symptoms. She was initially felt to be dehydrated in the emergency room, where the physician was considering sending her home but I suggested that we at least check a Hemoccult or admit her to observe for because those blood counts are low considering she was relatively dehydrated. Low and behold her counts have dropped significantly. Hemoglobin from 9.2-8.1, then 6.3. She has received 1 unit of blood that just finished infusing a little while ago. Review of Systems Review of Systems: All systems reviewed & are unremarkable except as noted in HPI and below PMFSH Past Medical History Medical History Essential (primary) hypertension History of colon polyps Metacarpal bone fracture Left fourth and fifth metacarpal bases spring 2020 Osteopenia Radial styloid fracture left radial styloid spring 2020 Type 2 diabetes mellitus without compl
[2021-07-06] MEDS: PANTOPRAZOLE SODIUM IV 40 MG VIAL IV PUSH ×2 (08:00→18:51)
--- NOTE | 2021-07-06 08:00 | P.PNIM_ITS ---
Progress Note: A&P Assessment and Plan (1) GI (gastrointestinal bleed): Qualifiers: GI bleed type/associated pathology: unspecified gastrointestinal hemorrhage type Qualified Code(s): K92.2 - Gastrointestinal hemorrhage, unspecified Code(s): K92.2 - Gastrointestinal hemorrhage, unspecified Status: Acute Assessment and Plan: * H/H 9.2/29.2, currently 6.3/20.6, 8.4/26.8 after 1 unit of PRBC * H&H every 6 hours for another day * GI consulted * history of esophageal varices * One time dose of Sandostatin * Take iron supplements at home, was instructed to hold * NPO for now * EGD found 4 esophageal varices that were banded * IV Protonix 40mg BID (2) Melena: Code(s): K92.1 - Melena Status: Acute Assessment and Plan: * See above (3) Dizziness: Code(s): R42 - Dizziness and giddiness Status: Acute Assessment and Plan: * H&H is trending down which could contribute to the dizziness * Hypotension is also noted, with pressure in the 80 systolically * Hold BP medications for now since she is hypotensive * IV fluids * PT/OT * Fall precautions (4) Cirrhosis: Code(s): K74.60 - Unspecified cirrhosis of liver Status: Acute Assessment and Plan: * Hx of cirrhosis * Sees Dr. De Dios * Liver enzymes are normal at this time * Trend labs (5) Esophageal varices: Code(s): I85.00 - Esophageal varices without bleeding Status: Acute Assessment and Plan: * Given one dose of Sandostatin * EGD scheduled for today (6) Type 2 diabetes mellitus without complications: Qualifiers: Diabetes mellitus fdc insulin use: without watermelon inspector use Qualified Code(s): E11.9 - Type 2 diabetes mellitus without complications Code(s): E11.9 - Type 2 diabetes mellitus without complications Status: Acute Assessment and Plan: * POC 125, Glucose on labs 124 * Hold metformin * Accu-Cheks every 6 hours since NPO * Sliding scale when indicated * Trend labs * adjust therapy as indicated (7) Essential (primary) hypertension: Code(s): I10 - Essential (primary) hypertension Status: Acute Assessment and Plan: * Hypotensive at this time * Trend blood pressure * Hold HTN medications for now * Restart when indicated (8) Anemia: Code(s): D64.9 - Anemia, unspecified Status: Acute Assessment and Plan: * combination of acute on chronic iron deficient anemia and acute bloodloss anemia * H/H currently 6.3/20.6 * Trend H/H q6hr * Transfuse if indicated * One unit of PRBC transfused 07/06/21 (9) Hypotension: Code(s): I95.9 - Hypotension, unspecified Status: Acute Assessment and Plan: * blood pressures have been running 80s to 90s/40s * blood pressure medications on hold at this time * trend blood pressures * restart home medications when appropriate * adjust therapy as indicated Time Spent With Patient Time with patient: Greater than 35 minutes Subjective Date/time seen: 07/06/21 0800 Interval history: Date/Time: 07/05/21 23:00 This is a 71-year-old female patient with a has medical history of having cirrhosis of the liver was some esophageal varices. The patient sees Dr. De Dios and states that she saw him approximately 2 weeks ago. Patient had a colonoscopy April
--- NOTE | 2021-07-06 08:00 | PM.IMPN ---
Progress Note: A&P Assessment and Plan (1) GI (gastrointestinal bleed): Qualifiers: GI bleed type/associated pathology: unspecified gastrointestinal hemorrhage type Qualified Code(s): K92.2 - Gastrointestinal hemorrhage, unspecified Code(s): K92.2 - Gastrointestinal hemorrhage, unspecified Status: Acute Assessment and Plan: H/H 9.2/29.2, currently 6.3/20.6, 8.4/26.8 after 1 unit of PRBC H&H every 6 hours for another day GI consulted history of esophageal varices One time dose of Sandostatin Take iron supplements at home, was instructed to hold NPO for now EGD found 4 esophageal varices that were banded IV Protonix 40mg BID (2) Melena: Code(s): K92.1 - Melena Status: Acute Assessment and Plan: See above (3) Dizziness: Code(s): R42 - Dizziness and giddiness Status: Acute Assessment and Plan: H&H is trending down which could contribute to the dizziness Hypotension is also noted, with pressure in the 80 systolically Hold BP medications for now since she is hypotensive IV fluids PT/OT Fall precautions (4) Cirrhosis: Code(s): K74.60 - Unspecified cirrhosis of liver Status: Acute Assessment and Plan: Hx of cirrhosis Sees Dr. 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 insulin use: without longterm use Qualified Code(s): E11.9 - Type 2 diabetes mellitus without complications Code(s): E11.9 - Type 2 diabetes mellitus without complications Status: Acute Assessment and Plan: POC 125, Glucose on labs 124 Hold metformin Accu-Cheks every 6 hours since NPO Sliding scale when indicated Trend labs adjust therapy as indicated (7) Essential (primary) hypertension: Code(s): I10 - Essential (primary) hypertension Status: Acute Assessment and Plan: Hypotensive at this time Trend blood pressure Hold HTN medications for now Restart when indicated (8) Anemia: Code(s): D64.9 - Anemia, unspecified Status: Acute Assessment and Plan: combination of acute on chronic iron deficient anemia and acute bloodloss anemia H/H currently 6.3/20.6 Trend H/H q6hr Transfuse if indicated One unit of PRBC transfused 07/06/21 (9) Hypotension: Code(s): I95.9 - Hypotension, unspecified Status: Acute Assessment and Plan: blood pressures have been running 80s to 90s/40s blood pressure medications on hold at this time trend blood pressures restart home medications when appropriate adjust therapy as indicated Time Spent With Patient Time with patient: Greater than 35 minutes Subjective Date/time seen: 07/06/21 0800 Interval history: Date/Time: 07/05/21 23:00 This is a 71-year-old female patient with a has medical history of having cirrhosis of the liver was some esophageal varices. The patient sees Dr. De Dios and states that she saw him approximately 2 weeks ago. Patient had a colonoscopy April of last year. Although she has had a history of having polyps is reported that her colonoscopy was normal that time. The patient also had an EGD which showed some esophageal varices. The patient stated that she felt very dizzy today and nauseated and she noticed some black colored stools today. She stated that she called Dr. De Dios who told her if she continue to feel this way then she should go to the emergency room. She is complaining of some left lower quadrant discomfort and tenderness. Her initial H&H was 9.2 and 29.2 the repeat H&H is 8.[address] De Dios has been consul
[2021-07-06 08:26] LABS: Basophils Absolute Auto 0.1 K/mm3 (0.0-0.1); Basophils Percent Auto 0.8 % (0.2-1.2); Eosinophils Absolute Auto 0.3 K/mm3 (0-0.3); Eosinophils Percent Auto 5.4 % (0-4.4); Hematocrit 26.8 % (37.0-47.0); Hemoglobin 8.4 g/dL (12.0-15.0); Immature Granulocyte Absolute 0.02 K/mm3 (0.00-0.031); Immature Granulocyte Percent A 0.3 % (0-0.5); Lymphocytes Absolute Auto 1.86 K/mm3 (0.9-3.2); Lymphocytes Percent Auto 29.8 % (18.3-44.2); Mean Corpuscular HGB Conc 31.3 g/dl (32-36); Mean Corpuscular Hemoglobin 29.1 pg (26-34); Mean Corpuscular Volume 92.7 fl (80-100); Mean Platelet Volume 10.4 fl (7.4-10.4); Monocytes Absolute Auto 0.4 K/mm3 (0.1-0.6); Monocytes Percent Auto 6.1 % (2.6-8.5); Neutrophils Absolute Auto 3.6 K/mm3 (1.3-6.7); Neutrophils Percent Auto 57.6 % (45.5-73.1); Platelet Count Result 153 k/mm3 (150-375); Red Blood Count 2.89 M/mm3 (4.2-5.4); Red Cell Distribution Width 16.1 % (11.5-14.5); White Blood Count 6.2 K/mm3 (4.5-10.0)
[2021-07-06 08:30] LABS: Lactic Acid Reflex 1.5 mmol/L (0.7-2.1)
[2021-07-06 08:31] LABS: INR 1.2; Prothrombin Time 15.1 Seconds (11.1-14.7)
[2021-07-06 08:34] LABS: Anion Gap 5 mmol/L (8-16); Blood Urea Nitrogen 33 mg/dL (7-17); CRP < 0.5 mg/dL (<1.0); Calcium 8.8 mg/dL (8.4-10.2); Carbon Dioxide 22 mmol/L (22-30); Chloride 114 mmol/L (98-107); Estimated CRCL calculation 57 ml/min; Estimated Glomerular Filt Rate > 60; Glucose 124 mg/dL (65-110); Lactate Dehydrogenase 371 U/L (313-618); Lipase 50 U/L (23-300); Magnesium 1.7 mg/dL (1.6-2.3); Sodium 141 mmol/L (137-145)
[2021-07-06 08:42] LABS: Glucose Point of Care 124 mg/dl (65-105)
--- NOTE | 2021-07-06 08:53 | WPDANESEPPF ---
Anes - Initial Pre Proc Eval Procedure: Operation Date: 07/06/21 09:30 Proposed Procedures p Esophagogastroduodenoscopy - Obey De Dios MD Date/Time: 07/06/21 08:53 Surgeon: Baylee Christensen MD Pre Op Diagnosis: GI Bleed Patient Data Age: 71 Gender: F Height: 1.57 m Weight: 68.5 kg Last Vital Signs Temp 36.2 C L 07/06/21 08:45 Pulse 82 07/06/21 08:45 Resp 20 07/06/21 08:45 BP 90/30 L 07/06/21 08:45 Pulse Ox 100 07/06/21 08:45 Allergies Allergy/AdvReac Type Severity Reaction Status Date / Time No Known Allergies Allergy Verified 07/06/21 08:40 Home Medications Medication Instructions Recorded Confirmed Type bixucuufwiav-rsoirpsy-qeijbbg-folic 1 tablet PO DAILY 01/07/20 07/05/21 History acid 400 mcg-vit K1 20 mcg tablet metformin 500 mg tablet 500 mg PO BID #180 ea 01/10/21 07/05/21 Rx losartan-hydrochlorothiazide 1 tablet PO DAILY 02/04/21 07/05/21 History ferrous sulfate 325 mg (65 mg 325 mg PO DAILY #30 tablet 04/17/21 07/05/21 Rx iron) tablet cholecalciferol (vitamin D3) 100 100 mcg PO DAILY 06/27/21 07/05/21 History mcg (4,000 unit) tablet Laboratory Tests 07/05/21 07/05/21 07/05/21 17:45 17:45 17:45 WBC 13.3 K/mm3 H K/mm3 (4.5-10.0) RBC 3.19 M/mm3 L M/mm3 (4.2-5.4) Hgb 9.2 g/dL L g/dL (12.0-15.0) Hct 29.2 % L % (37.0-47.0) MCV 91.5 fl fl (80-100) MCH 28.8 pg pg (26-34) MCHC 31.5 g/dl L g/dl (32-36) RDW 16.5 % H % (11.5-14.5) Plt Count 314 k/mm3 k/mm3 (150-375) MPV 10.4 fl fl (7.4-10.4) Immature Gran % (Auto) 0.4 % % (0-0.5) Neut % (Auto) 72.8 % % (45.5-73.1) Lymph % (Auto) 18.4 % % (18.3-44.2) Garrard % (Auto) 6.5 % % (2.6-8.5) Eos % (Auto) 1.1 % % (0-4.4) Baso % (Auto) 0.8 % % (0.2-1.2) Lymph # (Auto) 2.45 K/mm3 K/mm3 (0.9-3.2) Garrard # (Auto) 0.9 K/mm3 H K/mm3 (0.1-0.6) Eos # (Auto) 0.1 K/mm3 K/mm3 (0-0.3) Baso # (Auto) 0.1 K/mm3 K/mm3 (0.0-0.1) Abs Immat Gran (auto) 0.05 K/mm3 H K/mm3 (0.00-0.031) Absolute Neuts (auto) 9.7 K/mm3 H K/mm3 (1.3-6.7) Absolute Nucleated RBC 0.0 K/mm3 K/mm3 (0.0-0.012) Nucleated RBC % 0.0 % % (0.0-0.2) PT INR Sodium 139 mmol/L mmol/L 140 mmol/L mmol/L (137-145) (137-145) Potassium 3.9 mmol/L mmol/L 3.9 mmol/L mmol/L (3.4-5.0) (3.4-5.0) Chloride 112 mmol/L H mmol/L 112 mmol/L H mmol/L (98-107) (98-107) Carbon Dioxide 19 mmol/L L mmol/L 20 mmol/L L mmol/L (22-30) (22-30) Anion Gap 8 mmol/L mmol/L 8 mmol/L mmol/L (8-16) (8-16) BUN 36 mg/dL H mg/dL 36 mg/dL H mg/dL (7-17) (7-17) Creatinine 0.60 mg/dL L mg/dL 0.60 mg/dL L mg/dL (0.7-1.0) (0.7-1.0) Estim Creat Clear Calc 65 ml/min ml/min 65 ml/min ml/min Estimated GFR > 60 > 60 (59 - ) (59 - ) Glucose 162 mg/dL H mg/dL 159 mg/dL H mg/dL (65-110) (65-110) POC Capillary Glucose Hemoglobin A1c Lactic Acid Calcium 10.4 mg/dL H mg/dL 10.6 mg/dL H mg/dL (8.4-10.2) (8.4-10.2) Magnesium Ferritin Total Bilirubin 0.6 mg/dL mg/dL 0.6 mg/dL mg/dL (0.2-1.3) (0.2-1.3) AST 41 U/L H U/L 44 U/L H U/L (14-36) (14-36) ALT 36 U/L H U/L 36 U/L H U/L (4-35) (4-35) Alkaline Phosphatase 79 U/L U/L 78 U/L U/L (38-126) (38-126) Lactate Dehydrogenase Troponin I < 0.012 ng/mL ng/mL (0.000-0.034) C-Reactive Protein Total Protein 7.0 g/dL g/dL 7.0 g/dL g/dL (6.3-8.2) (6.3-8.2) Albumin 3.9 g/dL g/dL 4.0 g/dL g/dL (3.5-5.1) (3.5-5.1) Lipase TSH (Reflex) SARS-CoV-2 RNA (RT-PCR) Blood Type
[2021-07-06 09:05] LABS: Hemoglobin A1C 5.3 % (<5.7)
[2021-07-06] MEDS: LACTATED RINGERS 1,000 ML 150 ML IV CONT (09:23)
--- NOTE | 2021-07-06 09:49 | PC.NURSE ---
Patient transferred to GI Lab via bed at 0825.
[2021-07-06 09:53] LABS: Thyroid Stimulating Hormone Reflex 0.809 uIU/mL (0.465-4.68)
[2021-07-06] MEDS: fentaNYL CITRATE INJ (*CRX) 100 MCG/2 ML VIAL 25 MCG IV PUSH (10:23)
[2021-07-06] MEDS: SODIUM CHLORIDE 0.9% IV 1,000 ML 125 ML IV CONT ×2 (11:09→21:30)
--- NOTE | 2021-07-06 11:44 | PC.NURSE ---
Patient returned from GI Lab via bed at 1105.
--- NOTE | 2021-07-06 11:45 | PC.NURSE ---
Pt transferred to CAT Scan via wheelchair at 11:48.
[2021-07-06 12:12] LABS: Glucose Point of Care 123 mg/dl (65-105)
[2021-07-06 14:06] LABS: Hemoglobin 7.7 g/dL (12.0-15.0)
[2021-07-06 16:03] LABS: Hematocrit 23.7 % (37.0-47.0); Hemoglobin 7.8 g/dL (12.0-15.0)
[2021-07-06 17:54] LABS: Glucose Point of Care 155 mg/dl (65-105)
[2021-07-06 20:49] LABS: Glucose Point of Care 75 mg/dl (65-105)
[2021-07-07] VITALS (10 sets, daily range): BP systolic 98–117; BP diastolic 36–58; PULSE 75–96; RESP 16–20; TEMP 36.4–36.8; O2SAT 94–100
[2021-07-07 00:08] LABS: Hematocrit 22.5 % (37.0-47.0); Hemoglobin 7.3 g/dL (12.0-15.0)
[2021-07-07] MEDS: diphenhydrAMINE HCl CAP 25 MG CAPSULE PO (00:15)
--- NOTE | 2021-07-07 07:00 | WPDGIPROGNO ---
Progress Note: A&P Assessment and Plan (1) Melena: Code(s): K92.1 - Melena Status: Acute Assessment and Plan: 2/3 she has been on iron stools have been dark but yesterday they were darker and of a different consistency, consistent with melena. we are awaiting repeat CBC after blood transfusion. I have ordered a stat protime (2) Esophageal varices: Code(s): I85.00 - Esophageal varices without bleeding Status: Acute Assessment and Plan: These were found incidentally when she was being investigated for anemia a few months ago. She has had no hematemesis. EGD yesterday revealed quite large esophageal varices. Three bands were placed. She understands that we will perform a repeat EGD for possible further banding in about 2 months. Because she is still somewhat uncomfortable, I will hold off on putting her on regular diet, but will check on her again later this morning Nadalol to begin on Saturday if pressure holds up (3) Cirrhosis: Code(s): K74.60 - Unspecified cirrhosis of liver Status: Acute Assessment and Plan: studies were negative for hepatitis, for Sergey's disease, autoimmune liver disease etcetera. 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 Just yesterday she and I were discussing pricing her on a nonselective beta-lora if okay with her primary care physician as we would need to decrease the dose of her normal antihypertensive. (4) Abdominal pain: Code(s): R10.9 - Unspecified abdominal pain Status: Acute Assessment and Plan: Just in the last few weeks she has noticed discomfort in left lower quadrant. A colonoscopy last fall was unremarkable. CT scan of abdomen shows diffuse mild edema of the colon wall consistent with hepatopathy. Because she had of normal colonoscopy few months ago, I do not think we need to repeat it at this time. Also, they noted trace ascites. I will talk to her about sodium restriction. We will likely need to add Aldactone at some point. Subjective Date/time seen: 07/07/21 07:00 she states that she slept fairly well. She is still somewhat sore in the mid substernal area due to esophageal varices banded. She tolerated her full liquid diet. Her blood pressure is still somewhat soft. We need to place her on Nadalol at discharge in place of her usual blood pressure medication, but I will hold off on starting that today. Her hemoglobin has dropped to where I would expect that to be after having had 1 unit of blood. She had no stools during the night . She received 1 more unit today, repeat HH pending Case and care discussed with Beti Anguiano. If stable, she could be discharged Saturday from my perspective. Review of Systems Review of Systems: All systems reviewed & are unremarkable except as noted in HPI and below Exam Const: General: alert Orientation/consciousness: patient oriented x3 Resp: Auscultation: clear to auscultation bilaterally Cardio: Rhythm: regular rhythm GI: GI Palp: Yes Soft to palpation, No Tenderness to palpation present (GI) and Yes Hepatomegaly present Neuro: General: patient oriented x3 Motor exam (neuro): No Asterixis during motor activity present Objective Data Vital Signs Vital Signs: Vital Signs - 24 hr 07/06/21 08:00 07/06/21 08:45 07/06/21 09:45 Temperature 36.2 C L Pulse Rate 82 92 Respiratory Rate 20 18 Blood Pressure 90/30 L 111/45 L Pulse Oximetry 100 100 97 07/06/21 09:55 07/06/21 10:05 07/06/21 10:22 Temperature Pulse Rate 80 79 72 Respiratory Rate 19 17 18 Blood Pressure 107/46 L 109/49 L 96/50 L Pulse Oximetry 97 98 93 07/06/21 10:35 07/06/21 10:45 07/06/21 14:00 Temperature 37.0 C Pulse Rate 79 83 85 Respiratory Rate 16 17 18 Blood Pressure 97/42 L 106/50 L 98/44 L Pulse Oximetry 94 97 99 07/06/21 20:00 07/06/21 21:11 07/07/21 05:01 Temperature 36.3 C L 36.4 C L Pulse Rate 83 83 80 Respiratory Rate 18 18 18 Blood Pressure 1
[2021-07-07 07:42] LABS: Basophils Percent Auto 0.6 % (0.2-1.2); Eosinophils Absolute Auto 0.4 K/mm3 (0-0.3); Eosinophils Percent Auto 8.1 % (0-4.4); Hemoglobin 7.2 g/dL (12.0-15.0); Immature Granulocyte Absolute 0.01 K/mm3 (0.00-0.031); Immature Granulocyte Percent A 0.2 % (0-0.5); Mean Corpuscular HGB Conc 31.3 g/dl (32-36); Mean Corpuscular Hemoglobin 29.3 pg (26-34); Mean Corpuscular Volume 93.5 fl (80-100); Mean Platelet Volume 10.2 fl (7.4-10.4); Monocytes Absolute Auto 0.4 K/mm3 (0.1-0.6); Monocytes Percent Auto 7.7 % (2.6-8.5); Neutrophils Absolute Auto 2.7 K/mm3 (1.3-6.7); Neutrophils Percent Auto 56.4 % (45.5-73.1); Platelet Count Result 126 k/mm3 (150-375); Red Blood Count 2.46 M/mm3 (4.2-5.4); Red Cell Distribution Width 16.3 % (11.5-14.5); White Blood Count 4.8 K/mm3 (4.5-10.0)
[2021-07-07] MEDS: SODIUM CHLORIDE 0.9% IV 1,000 ML 125 ML IV CONT (07:44)
[2021-07-07 07:51] LABS: Alanine Aminotransferase 53 U/L (4-35); Albumin Level 2.8 g/dL (3.5-5.1); Alkaline Phosphatase 65 U/L (38-126); Anion Gap 1 mmol/L (8-16); Aspartate Amino Transferase 86 U/L (14-36); Bilirubin,Total 0.7 mg/dL (0.2-1.3); Blood Urea Nitrogen 15 mg/dL (7-17); Calcium 7.7 mg/dL (8.4-10.2); Carbon Dioxide 21 mmol/L (22-30); Chloride 117 mmol/L (98-107); Estimated CRCL calculation 57 ml/min; Estimated Glomerular Filt Rate > 60; Glucose 102 mg/dL (65-110); Magnesium 1.9 mg/dL (1.6-2.3); Potassium 3.7 mmol/L (3.4-5.0); Sodium 139 mmol/L (137-145)
[2021-07-07 08:05] LABS: Glucose Point of Care 112 mg/dl (65-105)
[2021-07-07] MEDS: PANTOPRAZOLE SODIUM IV 40 MG VIAL IV PUSH (08:51)
--- NOTE | 2021-07-07 10:09 | P.PNIM_ITS ---
Progress Note: A&P Assessment and Plan (1) GI (gastrointestinal bleed): Qualifiers: GI bleed type/associated pathology: unspecified gastrointestinal hemorrhage type Qualified Code(s): K92.2 - Gastrointestinal hemorrhage, unspecified Code(s): K92.2 - Gastrointestinal hemorrhage, unspecified Status: Acute Assessment and Plan: * H/H was 9.2/29.2, currently then 6.3/20.6, then 8.4/26.8 after 1 unit of PRBC on 07/06/2021. * H/H today 7.2/23.0, getting 1 unit RBC now, will recheck H/H this afternoon * H&H repeat in morning as well. * GI consulted, appreciate DR. De Dios following. * history of esophageal varices from EGD a couple months ago * One time dose of Sandostatin * Take iron supplements at home * checking Iron panel in morning. May need Venofer. Follow up on Iron panel results. * Fluid diet for now s/p EGD. Patient is finding swallowing and eating to be very painful today and could not eat much due to that. * EGD found 3-4 esophageal varices that were banded * will need repeat EGD in 2 months for follow up * IV Protonix 40mg BID continues now, and will need PO Protonix at discharge. (2) Melena: Code(s): K92.1 - Melena Status: Acute Assessment and Plan: * See above * on 07/06 she has been on iron stools have been dark (as she takes PO iron) but at admission they were darker and of a different consistency, consistent with melena. * Serial CBCs after blood transfusion. * INR 1.2 WNL * patient reports no further stools or BMs or rectal bleeding or output at all since her admission. * will need to monitor her subsequent stool outputs closely (3) Dizziness: Code(s): R42 - Dizziness and giddiness Status: Acute Assessment and Plan: * Anemia/H&H is trending down which could contribute to the dizziness * Hypotension is also noted, with pressure in the 80's to 90s systolically * Hold BP medications for now since she is hypotensive - continue to hold * IV fluids were given, today after 2nd RBC, stopping IVFs to avoid further dilutional factor. * encouraged oral hydration * ordered orthostatic VS check today * PT/OT * Fall precautions (4) Cirrhosis: Code(s): K74.60 - Unspecified cirrhosis of liver Status: Acute Assessment and Plan: * Hx of cirrhosis * Sees Dr. De Dios * Liver enzymes are normal at this time * studies were negative for hepatitis, for Sergey's disease, autoimmune liver disease etcetera. 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 De Dios. * Continue to hold her home blood pressure medicine due to hypotension, when her blood pressure improves start her on Aldactone, if there is still room in her blood pressure could start her on a much lower dose of home blood pressure medication. (5) Esophageal varices: Code(s): I85.00 - Esophageal varices without bleeding Status: Acute Assessment and Plan: * These were found incidentally when she was being investigated for anemia a few months ago. * She has had no hematemesis. * EGD yesterday revealed quite large esophageal varices. Three bands were placed. * She understands that we will perform a repeat EGD for possible further banding in about 2 months. * Given one dose of Sandostatin * Fluid diet for now s/p EGD. * Patient is finding swallowing and eating to be very painful today and could not eat much due to that. * She will need to have another EGD in 2 months for follow-up. * She is tolerating some clear and saw fluids today, eating half of her lunch. * Continue her IV Protonix b.i.d. at this time. S
--- NOTE | 2021-07-07 10:09 | PM.IMPN ---
Progress Note: A&P Assessment and Plan (1) GI (gastrointestinal bleed): Qualifiers: GI bleed type/associated pathology: unspecified gastrointestinal hemorrhage type Qualified Code(s): K92.2 - Gastrointestinal hemorrhage, unspecified Code(s): K92.2 - Gastrointestinal hemorrhage, unspecified Status: Acute Assessment and Plan: H/H was 9.2/29.2, currently then 6.3/20.6, then 8.4/26.8 after 1 unit of PRBC on 07/06/2021. H/H today 7.2/23.0, getting 1 unit RBC now, will recheck H/H this afternoon H&H repeat in morning as well. GI consulted, appreciate DR. De Dios following. history of esophageal varices from EGD a couple months ago One time dose of Sandostatin Take iron supplements at home checking Iron panel in morning. May need Venofer. Follow up on Iron panel results. Fluid diet for now s/p EGD. Patient is finding swallowing and eating to be very painful today and could not eat much due to that. EGD found 3-4 esophageal varices that were banded will need repeat EGD in 2 months for follow up IV Protonix 40mg BID continues now, and will need PO Protonix at discharge. (2) Melena: Code(s): K92.1 - Melena Status: Acute Assessment and Plan: See above on 07/06 she has been on iron stools have been dark (as she takes PO iron) but at admission they were darker and of a different consistency, consistent with melena. Serial CBCs after blood transfusion. INR 1.2 WNL patient reports no further stools or BMs or rectal bleeding or output at all since her admission. will need to monitor her subsequent stool outputs closely (3) Dizziness: Code(s): R42 - Dizziness and giddiness Status: Acute Assessment and Plan: Anemia/H&H is trending down which could contribute to the dizziness Hypotension is also noted, with pressure in the 80's to 90s systolically Hold BP medications for now since she is hypotensive - continue to hold IV fluids were given, today after 2nd RBC, stopping IVFs to avoid further dilutional factor. encouraged oral hydration ordered orthostatic VS check today PT/OT Fall precautions (4) Cirrhosis: Code(s): K74.60 - Unspecified cirrhosis of liver Status: Acute Assessment and Plan: Hx of cirrhosis Sees Dr. De Dios Liver enzymes are normal at this time studies were negative for hepatitis, for Sergey's disease, autoimmune liver disease etcetera. 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 De Dios. Continue to hold her home blood pressure medicine due to hypotension, when her blood pressure improves start her on Aldactone, if there is still room in her blood pressure could start her on a much lower dose of home blood pressure medication. (5) Esophageal varices: Code(s): I85.00 - Esophageal varices without bleeding Status: Acute Assessment and Plan: These were found incidentally when she was being investigated for anemia a few months ago. She has had no hematemesis. EGD yesterday revealed quite large esophageal varices. Three bands were placed. She understands that we will perform a repeat EGD for possible further banding in about 2 months. Given one dose of Sandostatin Fluid diet for now s/p EGD. Patient is finding swallowing and eating to be very painful today and could not eat much due to that. She will need to have another EGD in 2 months for follow-up. She is tolerating some clear and saw fluids today, eating half of her lunch. Continue her IV Protonix b.i.d. at this time. She will need to be discharged on oral Protonix. (6) Type 2 diabetes mellitus without complications: Qualifiers: Diabetes mellitus terminologist insulin use: without assisted use Qualified Code(s): E11.9 - Type 2 diabetes mellitus without complications Code(s): E11.9 - Type 2 diabetes mellitus without complications Status: Acute Assessment and Plan: POC 125, Glucose on
[2021-07-07 11:55] LABS: Glucose Point of Care 125 mg/dl (65-105)
[2021-07-07] MEDS: ACETAMINOPHEN 325 MG TABLET 650 MG PO (14:48)
[2021-07-07] MEDS: TUBING, BLOOD PLUM PUMP TUBING 1 EACH XX (15:23)
[2021-07-07] MEDS: POLYSACCHARIDE IRON COMPLEX 150 MG CAPSULE PO (16:30)
[2021-07-07] MEDS: SENNA/DOCUSATE SODIUM TABLET 1 TAB PO (16:33)
[2021-07-07 17:12] LABS: Glucose Point of Care 101 mg/dl (65-105)
[2021-07-07 17:52] LABS: Hematocrit 27.1 % (37.0-47.0); Hemoglobin 8.6 g/dL (12.0-15.0)
[2021-07-07] MEDS: DOCUSATE SODIUM 100 MG CAPSULE PO (20:12)
[2021-07-07] MEDS: PANTOPRAZOLE 40 MG TABLET PO (20:12)
[2021-07-07 20:45] LABS: Glucose Point of Care 79 mg/dl (65-105)
[2021-07-08] VITALS (11 sets, daily range): BP systolic 104–113; BP diastolic 57–61; PULSE 57–80; RESP 17–18; TEMP 36.7–36.8; O2SAT 94–100
[2021-07-08 06:27] LABS: Hematocrit 27.8 % (37.0-47.0); Hemoglobin 8.6 g/dL (12.0-15.0); Mean Corpuscular HGB Conc 30.9 g/dl (32-36); Mean Corpuscular Hemoglobin 28.5 pg (26-34); Mean Corpuscular Volume 92.1 fl (80-100); Mean Platelet Volume 10.2 fl (7.4-10.4); Platelet Count Result 121 k/mm3 (150-375); Red Blood Count 3.02 M/mm3 (4.2-5.4); Red Cell Distribution Width 19.3 % (11.5-14.5); White Blood Count 4.1 K/mm3 (4.5-10.0)
[2021-07-08 06:40] LABS: Alanine Aminotransferase 52 U/L (4-35); Alkaline Phosphatase 72 U/L (38-126); Anion Gap 3 mmol/L (8-16); Aspartate Amino Transferase 66 U/L (14-36); Bilirubin,Total 0.7 mg/dL (0.2-1.3); Blood Urea Nitrogen 11 mg/dL (7-17); Calcium 8.2 mg/dL (8.4-10.2); Carbon Dioxide 22 mmol/L (22-30); Chloride 114 mmol/L (98-107); Estimated CRCL calculation 65 ml/min; Estimated Glomerular Filt Rate > 60; Glucose 104 mg/dL (65-110); Potassium 3.5 mmol/L (3.4-5.0); Sodium 139 mmol/L (137-145)
[2021-07-08 07:22] LABS: Iron 23 ug/dL (37-170)
[2021-07-08 07:32] LABS: Percent Iron Saturation 7 % (20-50)
[2021-07-08 07:59] LABS: Glucose Point of Care 112 mg/dl (65-105)
[2021-07-08] MEDS: PANTOPRAZOLE 40 MG TABLET PO ×2 (08:22→20:42)
[2021-07-08] MEDS: DOCUSATE SODIUM 100 MG CAPSULE PO ×2 (08:22→20:42)
[2021-07-08] MEDS: ACETAMINOPHEN 325 MG TABLET 650 MG PO (08:22)
[2021-07-08] MEDS: POLYSACCHARIDE IRON COMPLEX 150 MG CAPSULE PO ×2 (08:22→17:19)
[2021-07-08] MEDS: nadoloL 20 MG TABLET PO (08:23)
--- NOTE | 2021-07-08 09:11 | PM.IMPN ---
Progress Note: A&P Assessment and Plan (1) GI (gastrointestinal bleed): Qualifiers: GI bleed type/associated pathology: unspecified gastrointestinal hemorrhage type Qualified Code(s): K92.2 - Gastrointestinal hemorrhage, unspecified Code(s): K92.2 - Gastrointestinal hemorrhage, unspecified Status: Acute Assessment and Plan: H/H was 9.2/29.2--> 6.3/20.6-->8.4/26.8-->7.2/23.0-->8.6/27.8 S/p 2 units of PRBCs GI consulted, appreciate DR. De Dios following history of esophageal varices from EGD a couple months ago One time dose of Sandostatin Continue iron supplements at home Iron panel reviewed, low, will give IV Venofer Fluid diet for now s/p EGD. Patient is finding swallowing and eating to be very painful today and could not eat much due to that. EGD 2/3 found 3-4 esophageal varices that were banded will need repeat EGD in 2 months for follow up IV Protonix 40mg BID continues now, and will need PO Protonix at discharge. (2) Melena: Code(s): K92.1 - Melena Status: Acute Assessment and Plan: See above on 3 she has been on iron stools have been dark (as she takes PO iron) but at admission they were darker and of a different consistency, consistent with melena. Serial CBCs after blood transfusion. INR 1.2 WNL patient reports no further stools or BMs or rectal bleeding or output at all since her admission. will need to monitor her subsequent stool outputs closely (3) Dizziness: Code(s): R42 - Dizziness and giddiness Status: Acute Assessment and Plan: Anemia/H&H is trending down which could contribute to the dizziness Hypotension is also noted, with pressure in the 80's to 90s systolically Hold BP medications for now since she is hypotensive - continue to hold IV fluids were given encouraged oral hydration ordered orthostatic VS check today PT/OT Fall precautions (4) Cirrhosis: Code(s): K74.60 - Unspecified cirrhosis of liver Status: Acute Assessment and Plan: Hx of cirrhosis Sees Dr. 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 De Dios. Continue to hold her home blood pressure medicine due to hypotension, when her blood pressure improves start her on Aldactone, if there is still room in her blood pressure could start her on a much lower dose of home blood pressure medication. (5) Esophageal varices: Code(s): I85.00 - Esophageal varices without bleeding Status: Acute Assessment and Plan: These were found incidentally when she was being investigated for anemia a few months ago. She has had no hematemesis EGD 2/3 revealed quite large esophageal varices. Three bands were placed. She understands that we will perform a repeat EGD for possible further banding in about 2 months Given one dose of Sandostatin Soft bite sized diet Swallowing and eating pain has improved She will need to have another EGD in 2 months for follow-up. She is tolerating some clear and saw fluids today, eating half of her lunch Continue her IV Protonix b.i.d. at this time. She will need to be discharged on oral Protonix. (6) Type 2 diabetes mellitus without complications: Qualifiers: Diabetes mellitus care home insulin use: without care home use Qualified Code(s): E11.9 - Type 2 diabetes mellitus without complications Code(s): E11.9 - Type 2 diabetes mellitus without complications Status: Acute Assessment and Plan: POC 125, Glucose on labs 112 Hold metformin Accu-Cheks every 6 hours since NPO Sliding scale when indicated Trend labs adjust therapy as indicated (7) Essential (primary) hypertension: Code(s): I10 - Essential (primary) hypertension Status: Acute Assessment and Plan: Hypotensive at this time Trend blood pressure Hold HTN medications
--- NOTE | 2021-07-08 09:18 | WPDGIPROGNO ---
Subjective Date/time seen: 07/08/21 09:18 The patient is feeling better today. She did have a black stool. No nausea or vomiting. General: very pleasant patient in no acute distress. HEENT: Head was normocephalic sclerae is clear mouth without masses neck was supple. Heart: Rate rhythm regular without S3 or S4. Lungs: CTA. Abdomen: Soft with no guarding or rigidity. Bowel sounds were active. Neurologic: Cranial nerves 2 through 12 intact. No focal defects. No clonus. Musculoskeletal system: Revealed no joint tenderness or swelling no muscle atrophy. Extremities: Reveal no significant edema. Skin: Warm and dry with normal turgor. Mental status: intact. Patient is alert and oriented. Impression: Cryptogenic cirrhosis with complicating factors: Esophageal varices/portal hypertensive gastropathy. Ascites. 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 Upper GI bleeding secondary to esophageal varices. Status post esophageal variceal ligation. Anemia. GI blood loss and secondary to hypersplenism. Past medical history: Diabetes mellitus, hypertension, low bone mass, history colon polyps. Recommendation: Follow hemoglobin hematocrit. If hemoglobin hematocrit stable may be discharged in a.m.. Follow-up with Dr. De Dios in 6-8 weeks. Objective Data Vital Signs Vital Signs: Vital Signs - 24 hr 07/07/21 10:59 07/07/21 11:15 07/07/21 12:15 Temperature 36.7 C 36.6 C 36.6 C Pulse Rate 89 81 76 Respiratory Rate 18 18 18 Blood Pressure 100/36 L 98/45 L 117/48 L Pulse Oximetry 97 94 94 07/07/21 13:15 07/07/21 14:00 07/07/21 15:00 Temperature 36.7 C 36.8 C 36.7 C Pulse Rate 96 84 78 Respiratory Rate 20 16 18 Blood Pressure 116/53 L 109/52 L 113/56 L Pulse Oximetry 98 100 98 07/07/21 16:00 07/07/21 20:00 07/07/21 21:39 Temperature 36.6 C Pulse Rate 76 75 82 Respiratory Rate 18 18 Blood Pressure 111/58 L Pulse Oximetry 99 99 07/08/21 00:00 07/08/21 04:00 07/08/21 05:57 Temperature 36.7 C Pulse Rate 69 77 78 Respiratory Rate 18 Blood Pressure 104/59 L Pulse Oximetry 97 07/08/21 08:23 Temperature Pulse Rate 80 Respiratory Rate Blood Pressure Pulse Oximetry Intake/Output Intake/Output: Intake & Output 07/05/21 07/06/21 07/07/21 07/08/21 23:59 23:59 23:59 23:59 Intake Total 1000 4610 2735 200 Output Total 1200 1300 400 Balance 1000 3410 1435 -200 Meds/Results Medications: Active Medications Generic Name Dose Route Start Last Admin Trade Name Freq PRN Reason Stop Dose Admin Acetaminophen 650 mg 07/05/21 19:22 07/08/21 08:22 Acetaminophen 325 Mg Tablet PO 650 mg Q4H PRN Administration Mild Pain (1-3) or Fever Bisacodyl 5 mg 07/07/21 14:58 Bisacodyl 5 Mg Tablet Ec PO QAM PRN Constipation Bisacodyl 10 mg 07/07/21 14:58 Bisacodyl 10 Mg Suppository RECTAL QAM PRN Constipation Dextrose 12.5 gm 07/07/21 00:09 Dextrose 50% 25 Gm/50 Ml Syringe IV PUSH PRN PRN Hypoglycemia Protocol Docusate Sodium 100 mg 07/07/21 21:00 07/08/21 08:22 Docusate Sodium 100 Mg Capsule PO 100 mg Q12HR VIVIANE Administration Glucagon 1 mg 07/07/21 00:09 Glucagon For Inj 1 Mg Vial IM PRN PRN Hypoglycemia Protocol Glucose 15 gm 07/07/21 00:09 Glucose Oral Gel 15 Gm Of Glucse In 37.5 Gm Tube PO PRN PRN Hypoglycemia Protocol Hydralazine HCl 10 mg 07/05/21 23:49 Hydralazine Hcl 20 Mg/Ml Vial IV PUSH Q8H PRN Blood Pressure - High Dextrose 1,000 mls @ 100 mls/hr 07/07/21 00:09 Dextrose 5% 1,000 Ml IVPB PRN PRN Hypoglycemia Protocol Insulin Aspart 2 - 5 units 07/07/21 08:00 07/08/21 08:18 Insulin Aspart (*Bkc) 100 Units/Ml SUB-Q Not Given TIDWM VIVIANE Protocol Nadolol 20 mg 07/08/21 09:00 07/08/21 08:23 Nadolol 20 Mg Tablet PO 20 mg QAM VIVIANE Administration Ondansetron HCl 4 mg
--- NOTE | 2021-07-08 09:59 | PCPTNOTE ---
received PT orders; talked with pt, she reports NO issues with walking or balance, has been getting up to chair and bathroom indep; she ambulated to door indep without any issues; PT evaluation not performed due to not indicated for pt; Discharge PT order; instructed pt to call for assist if needed with mobility, if feeling dizzy, weak; she voiced understanding.
[2021-07-08 11:46] LABS: Glucose Point of Care 92 mg/dl (65-105)
[2021-07-08 17:10] LABS: Glucose Point of Care 85 mg/dl (65-105)
[2021-07-08 21:08] LABS: Glucose Point of Care 72 mg/dl (65-105)
[2021-07-09] VITALS: PULSE 58
[2021-07-09 04:00] VITALS: PULSE 65
[2021-07-09 05:57] VITALS: BP 100/44; PULSE 64; RESP 18; TEMP 36.7; O2SAT 95
[2021-07-09 06:49] LABS: Hematocrit 27.7 % (37.0-47.0); Hemoglobin 8.9 g/dL (12.0-15.0); Mean Corpuscular HGB Conc 32.1 g/dl (32-36); Mean Corpuscular Hemoglobin 30.2 pg (26-34); Mean Corpuscular Volume 93.9 fl (80-100); Mean Platelet Volume 10.9 fl (7.4-10.4); Platelet Count Result 153 k/mm3 (150-375); Red Blood Count 2.95 M/mm3 (4.2-5.4); Red Cell Distribution Width 19.9 % (11.5-14.5); White Blood Count 5.7 K/mm3 (4.5-10.0)
[2021-07-09 07:05] LABS: Alanine Aminotransferase 42 U/L (4-35); Albumin Level 2.9 g/dL (3.5-5.1); Alkaline Phosphatase 76 U/L (38-126); Anion Gap 3 mmol/L (8-16); Aspartate Amino Transferase 48 U/L (14-36); Bilirubin,Total 0.5 mg/dL (0.2-1.3); Blood Urea Nitrogen 9 mg/dL (7-17); Calcium 8.3 mg/dL (8.4-10.2); Carbon Dioxide 25 mmol/L (22-30); Chloride 113 mmol/L (98-107); Estimated CRCL calculation 65 ml/min; Estimated Glomerular Filt Rate > 60; Glucose 89 mg/dL (65-110); Potassium 3.6 mmol/L (3.4-5.0); Sodium 141 mmol/L (137-145)
[2021-07-09 07:56] LABS: Glucose Point of Care 99 mg/dl (65-105)
[2021-07-09 08:00] VITALS: PULSE 77
--- NOTE | 2021-07-09 08:03 | WPDGIPROGNO ---
Subjective Date/time seen: 07/09/21 08:03 Patient is feeling better today. No nausea or vomiting. Tolerating diet. No significant bleeding. Hemoglobin hematocrit are stable. General: very pleasant patient in no acute distress. HEENT: Head was normocephalic sclerae is clear mouth without masses neck was supple. Heart: Rate rhythm regular without S3 or S4. Lungs: CTA. Abdomen: Soft with no guarding or rigidity. Bowel sounds were active. Neurologic: Cranial nerves 2 through 12 intact. No focal defects. No clonus. Musculoskeletal system: Revealed no joint tenderness or swelling no muscle atrophy. Extremities: Reveal no significant edema. Skin: Warm and dry with normal turgor. Mental status: intact. Patient is alert and oriented. Impression: Cryptogenic cirrhosis with complicating factors: Esophageal varices/portal hypertensive gastropathy. Ascites. 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 Upper GI bleeding secondary to esophageal varices. Status post esophageal variceal ligation. Anemia. GI blood loss and secondary to hypersplenism. Past medical history: Diabetes mellitus, hypertension, low bone mass, history colon polyps. Recommendations: Continue present care. Patient may be discharged from GI point of view. She is to follow up with Dr. De Dios in 4 weeks. Review of Systems Review of Systems: All systems reviewed & are unremarkable except as noted in HPI and below Objective Data Vital Signs Vital Signs: Vital Signs - 24 hr 07/08/21 08:23 07/08/21 12:00 07/08/21 14:00 Temperature 36.8 C Pulse Rate 80 67 72 Respiratory Rate 18 Blood Pressure 113/61 Pulse Oximetry 97 07/08/21 16:00 07/08/21 20:00 07/08/21 21:50 Temperature 36.7 C Pulse Rate 57 L 72 67 Respiratory Rate 17 Blood Pressure 104/57 L Pulse Oximetry 100 07/08/21 23:06 07/09/21 00:00 07/09/21 04:00 Temperature Pulse Rate 58 L 65 Respiratory Rate Blood Pressure Pulse Oximetry 94 07/09/21 05:57 Temperature 36.7 C Pulse Rate 64 Respiratory Rate 18 Blood Pressure 100/44 L Pulse Oximetry 95 Intake/Output Intake/Output: Intake & Output 07/06/21 07/07/21 07/08/21 07/09/21 23:59 23:59 23:59 23:59 Intake Total 4610 2735 1160 240 Output Total 1200 1300 400 Balance 3410 1435 760 240 Meds/Results Medications: Active Medications Generic Name Dose Route Start Last Admin Trade Name Freq PRN Reason Stop Dose Admin Acetaminophen 650 mg 07/05/21 19:22 07/08/21 08:22 Acetaminophen 325 Mg Tablet PO 650 mg Q4H PRN Administration Mild Pain (1-3) or Fever Bisacodyl 5 mg 07/07/21 14:58 Bisacodyl 5 Mg Tablet Ec PO QAM PRN Constipation Bisacodyl 10 mg 07/07/21 14:58 Bisacodyl 10 Mg Suppository RECTAL QAM PRN Constipation Dextrose 12.5 gm 07/07/21 00:09 Dextrose 50% 25 Gm/50 Ml Syringe IV PUSH PRN PRN Hypoglycemia Protocol Docusate Sodium 100 mg 07/07/21 21:00 07/08/21 20:42 Docusate Sodium 100 Mg Capsule PO 100 mg Q12HR VIVIANE Administration Glucagon 1 mg 07/07/21 00:09 Glucagon For Inj 1 Mg Vial IM PRN PRN Hypoglycemia Protocol Glucose 15 gm 07/07/21 00:09 Glucose Oral Gel 15 Gm Of Glucse In 37.5 Gm Tube PO PRN PRN Hypoglycemia Protocol Hydralazine HCl 10 mg 07/05/21 23:49 Hydralazine Hcl 20 Mg/Ml Vial IV PUSH Q8H PRN Blood Pressure - High Dextrose 1,000 mls @ 100 mls/hr 07/07/21 00:09 Dextrose 5% 1,000 Ml IVPB PRN PRN Hypoglycemia Protocol Insulin Aspart 2 - 5 units 07/07/21 08:00 07/08/21 17:19 Insulin Aspart (*Bkc) 100 Units/Ml SUB-Q Not Given TIDWM [facility] Protocol Nadolol 20 mg 07/08/21 09:00 07/08/21 08:23 Nadolol 20 Mg Tablet PO 20 mg QAM VIVIANE Administration Ondansetron HCl 4 mg 07/05/21 19:22 Ondansetron Inj 4 Mg/2 Ml Vial IV PUSH Q4H PRN Nausea Pantoprazo
[2021-07-09 08:35] VITALS: PULSE 70
[2021-07-09] MEDS: PANTOPRAZOLE 40 MG TABLET PO (08:35)
[2021-07-09] MEDS: nadoloL 20 MG TABLET PO (08:35)
[2021-07-09] MEDS: POLYSACCHARIDE IRON COMPLEX 150 MG CAPSULE PO (08:35)
[2021-07-09] MEDS: DOCUSATE SODIUM 100 MG CAPSULE PO (08:35)
--- NOTE | 2021-07-09 10:20 | PM.DS ---
DS: Admitting Diagnosis Discharge Date 07/09/2021 Admitting Diagnosis GI bleed DS: Discharge Diagnosis Discharge Diagnosis (1) GI (gastrointestinal bleed): Qualifiers: GI bleed type/associated pathology: unspecified gastrointestinal hemorrhage type Qualified Code(s): K92.2 - Gastrointestinal hemorrhage, unspecified Code(s): K92.2 - Gastrointestinal hemorrhage, unspecified Status: Acute Assessment and Plan: H/H was 9.2/29.2--> 6.3/20.6-->8.4/26.8-->7.2/23.0-->8.6/27.8-->8.9/27.7 S/p 2 units of PRBCs GI consulted, appreciate DR. De Dios followingok to dc f/u with Dr. De Dios in 4 weeks history of esophageal varices from EGD a couple months ago One time dose of Sandostatin Continue iron supplements at home Iron panel reviewed, low, will give IV Venofer EGD 07/06 found 3-4 esophageal varices that were banded will need repeat EGD in 2 months for follow up IV Protonix 40mg BID continues now, and will need PO Protonix at discharge. (2) Melena: Code(s): K92.1 - Melena Status: Acute Assessment and Plan: resolved See above on 07/06 she has been on iron stools have been dark (as she takes PO iron) but at admission they were darker and of a different consistency, consistent with melena. Serial CBCs after blood transfusion. INR 1.2 WNL patient reports no further stools or BMs or rectal bleeding or output at all since her admission. (3) Dizziness: Code(s): R42 - Dizziness and giddiness Status: Acute Assessment and Plan: Possibly secondary to Anemia/H&H was trending down which could contribute to the dizziness Hold BP medications for now since she is hypotensive - continue to hold IV fluids were given encouraged oral hydration PT/OT (4) Cirrhosis: Code(s): K74.60 - Unspecified cirrhosis of liver Status: Acute Assessment and Plan: Hx of cirrhosis Followed by Dr. De Dios Liver enzymes are normal at this time studies were negative for hepatitis, for Sergey's disease, autoimmune liver disease etcetera Continue home blood pressure medication Abdominal ultrasound indicates (5) Esophageal varices: Code(s): I85.00 - Esophageal varices without bleeding Status: Acute Assessment and Plan: These were found incidentally when she was being investigated for anemia a few months ago. She has had no hematemesis EGD 2/3 revealed quite large esophageal varices. Three bands were placed. She understands that we will perform a repeat EGD for possible further banding in about 2 months Given one dose of Sandostatin She will need to have another EGD in 2 months for follow-up. (6) Type 2 diabetes mellitus without complications: Qualifiers: Diabetes mellitus fpc insulin use: without fpc use Qualified Code(s): E11.9 - Type 2 diabetes mellitus without complications Code(s): E11.9 - Type 2 diabetes mellitus without complications Status: Acute Assessment and Plan: Blood sugar stable Resume home medication (7) Essential (primary) hypertension: Code(s): I10 - Essential (primary) hypertension Status: Acute Assessment and Plan: Blood pressure soft Continue home medication and follow up with primary care physician (8) Anemia: Code(s): D64.9 - Anemia, unspecified Status: Acute Assessment and Plan: combination of acute on chronic iron deficient anemia and acute bloodloss anemia H/H 7.2/23-->8.6/27.8-->8.9/27.7 S/p 2 units of PRBCs transfused 07/06/21, EGD with 3 esophageal varices banded currently receiving a 2nd unit of packed red blood cells for severe anemia related to esophageal varices and cryptogenic cirrhosis. Iron panel reviewed, Venofer ordered (9) Hypotension: Code(s): I95.9 - Hypotension, unspecified Status: Acute Assessment and Plan: Resolved Possibly secondary to hypovolemia (10) Abdominal pain: Code(s): R10
[2021-07-09 12:00] VITALS: PULSE 66
[2021-07-09 12:14] LABS: Glucose Point of Care 96 mg/dl (65-105)
== END 2021-07-09 14:45 | disposition home or self-care (01) | DRG 369 ==
LOC: ANHED 19:32 → ANH3MEDSUR 23:56
PROVIDERS: Internal Medicine Gastroenterology; Nurse Practitioner; Admitting Provider Internal Medicine; Emergency Provider Family Medicine; PCP Nurse Practitioner Family; Visit Provider Nurse Practitioner
PROC: 0DJ08ZZ Inspection of Upper Intestinal Tract, Via Natural or Artificial Opening Endoscopic (ICD-10-PCS; CPT 43235; principal; 2021-07-06 09:30)
DX: I85.01 Esophageal varices with bleeding (principal); D62 Acute posthemorrhagic anemia; D50.9 Iron deficiency anemia, unspecified; K74.60 Unspecified cirrhosis of liver; K29.70 Gastritis, unspecified, without bleeding; D73.1 Hypersplenism; Z20.822 Contact with and (suspected) exposure to COVID-19; E11.9 Type 2 diabetes mellitus without complications; I95.9 Hypotension, unspecified; I10 Essential (primary) hypertension; K76.0 Fatty (change of) liver, not elsewhere classified; M85.80 Other specified disorders of bone density and structure, unspecified site; Z90.49 Acquired absence of other specified parts of digestive tract; Z98.42 Cataract extraction status, left eye; Z98.41 Cataract extraction status, right eye
CPT/HCPCS: 36415; 36430; 74177; 76700; 80048; 80053; 82728; 82948; 83036; 83540; 83550; 83605; 83615; 83690; 83735; 84443; 84484; 85014; 85018; 85025; 85027; 85610; 86140; 86850; 86900; 86901; 86920; 87045; 87269; 87272; 87427; 93005; 97165; 99285; A9270; C9113; C9803; J1756; J2001; J2354; J2704; J3010; J7030; J7050; J7120; P9016; Q9967; U0003; U0005

== ENCOUNTER 2021-09-25 01:45 | Day surgery (SDC) | payer MEDICARE, OTHER, SELFPAY ==
[2021-09-07 15:06] VITALS: BMI 26.2
--- NOTE | 2021-09-22 13:50 | PM.HPGS ---
History of Present Illness History of Present Illness Consent: Risks, benefits, and alternatives have been discussed and questions answered. Patient agrees to proceed with procedure. Chief complaint: esophageal varices Narrative: Aimee Prieto is a 71 year old female She was found to have esophageal varices when she presented with gastrointestinal bleeding a few months ago. She returns now for follow-up and banding of varices if necessary. Her last hemoglobin was 11.0. Review of Systems Review of Systems: All systems reviewed & are unremarkable except as noted in HPI and below PMFSH Past Medical History Medical History Essential (primary) hypertension History of colon polyps Metacarpal bone fracture Left fourth and fifth metacarpal bases spring 2020 Non-alcoholic cirrhosis Osteopenia Radial styloid fracture left radial styloid spring 2020 Type 2 diabetes mellitus without complications Hemoglobin A1C 5.6 in 07/2020 Surgical History Surgical History History of cataract extraction History of cholecystectomy History of open reduction and internal fixation (ORIF) procedure right ankle- 2007 left wrist Family History Family History Father Acute myocardial infarction Mother Family history of chronic obstructive pulmonary disease Other Diabetes mellitus Family history of hypercholesterolemia Family history of throat cancer Family history of thyroid disease Social History Social History Social History: the patient lives home alone and is . She had 3 children and her son recently from [employer]. Patient does not drink alcohol and is lifelong nonsmoker. She does not use any marijuana or illicit drugs. She does not have a durable power civil attorney for healthcare. 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 Code status full code Smoking status: Never smoker Alcohol intake: never Substance use: never Substance use type: does not use Living arrangements: alone Gender identity (if verbalized by the patient): Female Spiritual care concerns: No Meds Home Medications and Allergies Home Medications Medication Instructions Recorded Confirmed Type saxfxsjuoluu-jsslykwg-txjikdd-folic 1 tablet PO DAILY 01/07/20 09/07/21 History acid 400 mcg-vit K1 20 mcg tablet cholecalciferol (vitamin D3) 100 100 mcg PO DAILY 06/27/21 09/07/21 History mcg (4,000 unit) tablet ferrous sulfate 325 mg (65 mg 325 mg PO DAILY #30 tablet 07/07/21 09/07/21 Rx iron) tablet losartan 100 1 tablet PO DAILY #90 tablet 07/07/21 09/07/21 Rx mg-hydrochlorothiazide 12.5 mg tablet metformin 500 mg tablet 500 mg PO BID #180 ea 07/19/21 09/07/21 Rx pantoprazole 40 mg tablet,delayed 40 mg PO Q12HR #180 tablet 07/24/21 09/07/21 Rx release cetirizine 10 mg tablet 10 mg PO DAILY 08/22/21 09/07/21 History propranolol 10 mg tablet 10 mg PO Q12H #60 tablet 08/22/21 08/22/21 Rx Allergies Allergy/AdvReac Type Severity Reaction Status Date / Time No Known Allergies Allergy Verified 09/25/21 11:20 Exam Const: General: alert Orientation/consciousness: patient oriented x3 Resp: Auscultation: clear to auscultation bilaterally Cardio: Rhythm: regular rhythm GI: GI Palp: Yes Soft to palpation and No Tenderness to palpation present (GI) Neuro: General: patient oriented x3 Assessment and Plan Assessment and plan (1) Esophageal varices: Code(s): I85.00 - Esophageal varices without bleeding Status: Acute Assessment and Plan: EGD with possible biopsy or dilatation or cautery.
[2021-09-25 11:21] VITALS: BP 129/65; PULSE 76; RESP 18; TEMP 36.4; O2SAT 100
[2021-09-25] MEDS: LACTATED RINGERS 1,000 ML 150 ML IV CONT (11:30)
[2021-09-25 11:38] LABS: Glucose Point of Care 90 mg/dl (65-105)
--- NOTE | 2021-09-25 11:48 | WPDANESEPPF ---
Anes - Initial Pre Proc Eval Procedure: Operation Date: 09/25/21 12:30 Proposed Procedures p Esophagogastroduodenoscopy - Obey De Dios MD Date/Time: 09/25/21 11:48 Surgeon: Obey De Dios MD Pre Op Diagnosis: esophageal varices Patient Data Age: 71 Gender: F Height: 1.57 m Weight: 67.9 kg Last Vital Signs Temp 36.4 C L 09/25/21 11:21 Pulse 76 09/25/21 11:21 Resp 18 09/25/21 11:21 BP 129/65 09/25/21 11:21 Pulse Ox 100 09/25/21 11:21 Allergies Allergy/AdvReac Type Severity Reaction Status Date / Time No Known Allergies Allergy Verified 09/25/21 11:20 Home Medications Medication Instructions Recorded Confirmed Type ehkylvjlvxdt-ypildwgd-hqazfxn-folic 1 tablet PO DAILY 01/07/20 09/07/21 History acid 400 mcg-vit K1 20 mcg tablet cholecalciferol (vitamin D3) 100 100 mcg PO DAILY 06/27/21 09/07/21 History mcg (4,000 unit) tablet ferrous sulfate 325 mg (65 mg 325 mg PO DAILY #30 tablet 07/07/21 09/07/21 Rx iron) tablet losartan 100 1 tablet PO DAILY #90 tablet 07/07/21 09/07/21 Rx mg-hydrochlorothiazide 12.5 mg tablet metformin 500 mg tablet 500 mg PO BID #180 ea 07/19/21 09/07/21 Rx pantoprazole 40 mg tablet,delayed 40 mg PO Q12HR #180 tablet 07/24/21 09/07/21 Rx release cetirizine 10 mg tablet 10 mg PO DAILY 08/22/21 09/07/21 History propranolol 10 mg tablet 10 mg PO Q12H #60 tablet 08/22/21 09/25/21 Rx Laboratory Tests 09/25/21 11:36 POC Capillary Glucose 90 mg/dl mg/dl (65-105) Patient hx anesthesia problems: none Family hx anesthesia problems: none Results Review: All pre-operative results and documents have been reviewed as part of the pre-operative evaluation. [facility] Past Medical History Medical History Essential (primary) hypertension History of colon polyps Metacarpal bone fracture Left fourth and fifth metacarpal bases spring 2020 Non-alcoholic cirrhosis Osteopenia Radial styloid fracture left radial styloid spring 2020 Type 2 diabetes mellitus without complications Hemoglobin A1C 5.6 in 07/2020 Surgical History Surgical History History of cataract extraction History of cholecystectomy History of open reduction and internal fixation (ORIF) procedure right ankle- 2007 left wrist Family History Family History Father Acute myocardial infarction Mother Family history of chronic obstructive pulmonary disease Other Diabetes mellitus Family history of hypercholesterolemia Family history of throat cancer Family history of thyroid disease Social History Social History Social History: the patient lives home alone and is . She had 3 children and her son recently from [employer]. Patient does not drink alcohol and is lifelong nonsmoker. She does not use any marijuana or illicit drugs. She does not have a durable power personal injury attorney for healthcare. 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 Code status full code Smoking status: Never smoker Alcohol intake: never Substance use: never Substance use type: does not use Living arrangements: alone Gender identity (if verbalized by the patient): Female Spiritual care concerns: No Anes - Eval Final PreProcedure Day of Procedure 09/25/21 11:48 Patient weight: overweight Heart: regular rate and rhythm Lungs: clear to auscultation Airway: Mallampati scale class II Neurological: alert and oriented Last oral intake: >/= 8 hours ASA classification: III Emergent: no Anesthetic plan: proceed Anesthesia type and monitoring: general GIVS and standard monitoring Results Review: All pre-operative results and documents have been reviewed as part of the pre-operative evaluation. Informed Consent: [facility]
[2021-09-25 12:22] VITALS: BP 116/59; PULSE 73; RESP 20; O2SAT 100
[2021-09-25 12:32] VITALS: BP 115/65; PULSE 68; RESP 17; O2SAT 98
[2021-09-25 12:42] VITALS: BP 144/64; PULSE 66; RESP 13; O2SAT 100
== END 2021-09-25 13:05 | disposition home or self-care (01) ==
PROVIDERS: PCP Family Medicine; Visit Provider Internal Medicine Gastroenterology
PROC: 0DJ08ZZ Inspection of Upper Intestinal Tract, Via Natural or Artificial Opening Endoscopic (ICD-10-PCS; CPT 43235; principal; 2021-09-25 12:30)
DX: I85.00 Esophageal varices without bleeding (principal); I10 Essential (primary) hypertension; E11.9 Type 2 diabetes mellitus without complications; K74.60 Unspecified cirrhosis of liver
CPT/HCPCS: 43244; 82948; J2704; J7120

== ENCOUNTER → 2021-09-26 12:45 | Outpatient (CLI) | payer MEDICARE, OTHER, SELFPAY ==
--- NOTE | ~2021-09-26 | MM_ITS ---
EXAMINATION: MM screening [facility] BI w jose l HISTORY: Screening TECHNIQUE: Craniocaudal and mediolateral oblique 3-D tomosynthesis images were obtained and synthetic 2-D images were generated. CAD analysis was submitted and interpreted. COMPARISON: Comparison to multiple prior studies sequentially, with oldest reviewed study dated 11/16. BREAST PARENCHYMAL COMPOSITION: There are scattered areas of fibroglandular density. FINDINGS: There is no evidence of suspicious mass, calcification, or architectural distortion to sugg est malignancy in either breast. There has been no suspicious interval change. IMPRESSION: 1. No mammographic evidence of malignancy. 2. Recommend routine screening mammography in one year. BI-RADS Category 1: Negative Reviewed, dictated and finalized at location A.
== END ==
PROVIDERS: PCP Nurse Practitioner Family; Visit Provider Obstetrics & Gynecology Gynecology
DX: Z12.31 Encounter for screening mammogram for malignant neoplasm of breast (principal)
CPT/HCPCS: 77063; 77067

== ENCOUNTER 2022-01-15 00:52 | Day surgery (SDC) | payer MEDICARE, OTHER, SELFPAY ==
[2021-12-28 14:06] VITALS: BMI 26.6
--- NOTE | 2022-01-14 10:38 | PM.HPGS ---
History of Present Illness History of Present Illness Consent: Risks, benefits, and alternatives have been discussed and questions answered. Patient agrees to proceed with procedure. Chief complaint: esophageal varices Narrative: Aimee Prieto is a 71 year old female Was known to have esophageal varices. She had presented in July with hemorrhage and found to have varices. Three bands were placed at that time. In September she return for elective EGD and 2 more bands were placed on relatively large varices. She returns for follow-up EGD at this time. wrong complaint is that she has occasional diarrhea, which she believes may be due to 1 of the medications, probably pantoprazole. Review of Systems Review of Systems: All systems reviewed & are unremarkable except as noted in HPI and below PMFSH Past Medical History Medical History Essential (primary) hypertension History of colon polyps Metacarpal bone fracture Left fourth and fifth metacarpal bases spring 2020 Non-alcoholic cirrhosis Osteopenia Radial styloid fracture left radial styloid spring 2020 Type 2 diabetes mellitus without complications Hemoglobin A1C 5.6 in 07/2020 Surgical History Surgical History History of cataract extraction History of cholecystectomy History of open reduction and internal fixation (ORIF) procedure right ankle- 2007 left wrist Family History Family History Father Acute myocardial infarction Mother Family history of chronic obstructive pulmonary disease Other Diabetes mellitus Family history of hypercholesterolemia Family history of throat cancer Family history of thyroid disease Social History Social History Social History: the patient lives home alone and is . She had 3 children and her son recently from [employer]. Patient does not drink alcohol and is lifelong nonsmoker. She does not use any marijuana or illicit drugs. She does not have a durable power mailing machine helper for healthcare. 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 Code status full code Smoking status: Never smoker Alcohol intake: never Substance use: never Substance use type: does not use Living arrangements: alone Gender identity (if verbalized by the patient): Female Spiritual care concerns: No Meds Home Medications and Allergies Home Medications Medication Instructions Recorded Confirmed Type wzvohhvctnuj-ojcsdpxi-dlajcfm-folic 1 tablet PO DAILY 01/07/20 01/15/22 History acid 400 mcg-vit K1 20 mcg tablet (One-A-Day Women's 50 Plus) metformin 500 mg tablet 500 mg PO BID #180 ea 07/19/21 01/15/22 Rx pantoprazole 40 mg tablet,delayed 40 mg PO Q12HR #180 tabs 07/24/21 01/15/22 Rx release cetirizine 10 mg tablet (All Day 10 mg PO DAILY 08/22/21 01/15/22 History Allergy (cetirizine)) propranolol 10 mg tablet 10 mg PO Q12H #60 tabs 08/22/21 01/15/22 Rx ferrous sulfate 325 mg (65 mg 325 mg PO DAILY #30 tabs 10/20/21 01/15/22 Rx iron) tablet losartan 100 1 tablet PO DAILY #90 tabs 11/10/21 01/15/22 Rx mg-hydrochlorothiazide 12.5 mg tablet Allergies Allergy/AdvReac Type Severity Reaction Status Date / Time No Known Allergies Allergy Verified 01/15/22 11:20 Exam Const: General: alert Orientation/consciousness: patient oriented x3 Resp: Auscultation: clear to auscultation bilaterally Cardio: Rhythm: regular rhythm GI: GI Palp: Yes Soft to palpation and No Tenderness to palpation present (GI) Neuro: General: patient oriented x3 Assessment and Plan Assessment and plan (1) Esophageal varices: Code(s): I85.00 - Esophageal varices without bleeding Status: Acute Assessment and Plan: EGD with possible biopsy or dilatation or caute
--- NOTE | 2022-01-15 10:47 | WPDANESEPPF ---
Anes - Initial Pre Proc Eval Procedure: Operation Date: 01/15/22 12:30 Proposed Procedures p Esophagogastroduodenoscopy - Obey De Dios MD Date/Time: 01/15/22 10:47 Surgeon: Obey De Dios MD Pre Op Diagnosis: esophageal varices Patient Data Age: 71 Gender: F Height: 1.57 m Weight: 66 kg Allergies Allergy/AdvReac Type Severity Reaction Status Date / Time No Known Allergies Allergy Verified 01/15/22 11:20 Home Medications Medication Instructions Recorded Confirmed Type xscsxnxyrufh-faxmnvrj-ugkuhrv-folic 1 tablet PO DAILY 01/07/20 12/28/21 History acid 400 mcg-vit K1 20 mcg tablet (One-A-Day Women's 50 Plus) metformin 500 mg tablet 500 mg PO BID #180 ea 07/19/21 12/28/21 Rx pantoprazole 40 mg tablet,delayed 40 mg PO Q12HR #180 tabs 07/24/21 12/28/21 Rx release cetirizine 10 mg tablet (All Day 10 mg PO DAILY 08/22/21 12/28/21 History Allergy (cetirizine)) propranolol 10 mg tablet 10 mg PO Q12H #60 tabs 08/22/21 12/28/21 Rx ferrous sulfate 325 mg (65 mg 325 mg PO DAILY #30 tabs 10/20/21 12/28/21 Rx iron) tablet losartan 100 1 tablet PO DAILY #90 tabs 11/10/21 12/28/21 Rx mg-hydrochlorothiazide 12.5 mg tablet Patient hx anesthesia problems: none Family hx anesthesia problems: none Results Review: All pre-operative results and documents have been reviewed as part of the pre-operative evaluation. [facility] Past Medical History Medical History Essential (primary) hypertension History of colon polyps Metacarpal bone fracture Left fourth and fifth metacarpal bases spring 2020 Non-alcoholic cirrhosis Osteopenia Radial styloid fracture left radial styloid spring 2020 Type 2 diabetes mellitus without complications Hemoglobin A1C 5.6 in 07/2020 Surgical History Surgical History History of cataract extraction History of cholecystectomy History of open reduction and internal fixation (ORIF) procedure right ankle- 2007 left wrist Family History Family History Father Acute myocardial infarction Mother Family history of chronic obstructive pulmonary disease Other Diabetes mellitus Family history of hypercholesterolemia Family history of throat cancer Family history of thyroid disease Social History Social History Social History: the patient lives home alone and is . She had 3 children and her son recently from [employer]. Patient does not drink alcohol and is lifelong nonsmoker. She does not use any marijuana or illicit drugs. She does not have a durable power manager cardiac cath for healthcare. 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 Code status full code Smoking status: Never smoker Alcohol intake: never Substance use: never Substance use type: does not use Living arrangements: alone Gender identity (if verbalized by the patient): Female Spiritual care concerns: No Anes - Eval Final PreProcedure Day of Procedure 01/15/22 10:47 Patient weight: overweight Heart: regular rate and rhythm Lungs: clear to auscultation Airway: Mallampati scale class II Neurological: alert and oriented Last oral intake: >/= 8 hours ASA classification: III Emergent: no Anesthetic plan: proceed Anesthesia type and monitoring: general GIVS and standard monitoring Results Review: All pre-operative results and documents have been reviewed as part of the pre-operative evaluation. Informed Consent: The patient's anesthetic plan and its attendant risks and benefits were discussed with the patient/family/POA. Questions were solicited and answers provided to the satisfaction of the patient/family/POA.
[2022-01-15 11:22] VITALS: BP 138/54; PULSE 67; RESP 20; TEMP 36.4; O2SAT 100; BMI 27.3
[2022-01-15 11:54] LABS: Glucose Point of Care 81 mg/dl (65-105)
[2022-01-15] MEDS: LACTATED RINGERS 1,000 ML 150 ML IV CONT (12:26)
[2022-01-15 13:01] VITALS: BP 113/64; PULSE 69; RESP 17; O2SAT 100
[2022-01-15 13:11] VITALS: BP 121/70; PULSE 64; RESP 14; O2SAT 100
[2022-01-15 13:21] VITALS: BP 133/74; PULSE 65; RESP 17; O2SAT 100
== END 2022-01-15 13:40 | disposition home or self-care (01) ==
PROVIDERS: PCP Nurse Practitioner Family; Visit Provider Internal Medicine Gastroenterology
PROC: 0DJ08ZZ Inspection of Upper Intestinal Tract, Via Natural or Artificial Opening Endoscopic (ICD-10-PCS; CPT 43235; principal; 2022-01-15 12:30)
DX: I85.00 Esophageal varices without bleeding (principal); K21.9 Gastro-esophageal reflux disease without esophagitis; Z79.84 Long term (current) use of oral hypoglycemic drugs; I10 Essential (primary) hypertension; M19.90 Unspecified osteoarthritis, unspecified site; E11.9 Type 2 diabetes mellitus without complications
CPT/HCPCS: 43244; 82948; J2704; J7120

== ENCOUNTER → 2022-02-20 09:43 | Outpatient (CLI) | payer MEDICARE, OTHER, SELFPAY ==
--- NOTE | ~2022-02-20 | DEXA_ITS ---
Bone Density Report Name: SAM NGUYEN Age: 71 Sex: Female Ethnicity: White Date of : 1950 Indication: osteopenia; parental hip fracture; prior fracture; postmenopausal Referring Provider: Razia Arriaga Study: Bone densitometry was performed. Exam Date: February 20, 2022 Accession number: [id number] Bone Density: Region BMD T-score Z-score Classification AP Spine (L1-L4) 1.081 0.3 2.6 Normal Femoral Neck (Left) 0.664 -1.7 0.3 Osteopenia Total Hip (Left) 0.775 -1.4 0.3 Osteopenia Femoral Neck (Right) 0.783 -0.6 1.4 Normal Total Hip (Right) 0.797 -1.2 0.5 Osteopenia Total Hip Mean 0.786 -1.3 0.4 Osteopenia World Health Organization criteria for BMD impression classify patients as: Normal (T-score at or above -1.0), Osteopenia (T-score between -1.0 and -2.5), or Osteoporosis (T-score at or below -2.5). 10-year Fracture Risk(1): Major Osteoporotic Fracture 26% Hip Fracture 9.3% Reported Risk Factors: [place] (), Neck BMD=0.664, BMI=27.4, previous fracture, parental fracture (1) FRAX(R) Version 3.08. Fracture probability calculated for an untreated patient. Fracture probability may be lower if the patient has received treatment. Previous Exams: Region Exam Age BMD T-score BMD Change BMD Change Date g/cm2 vs Baseline vs Previous AP Spine(L1-L4) 02/20/2022 71 1.081 0.3 0.091 0.096* 03/16/2019 68 0.985 -0.6 -0.005 -0.036* 02/03/2016 65 1.020 -0.2 0.031 -0.037* 11/19/2012 62 1.058 0.1 0.068 0.018 10/09/2010 60 1.040 -0.1 0.050 0.071* 08/28/2006 56 0.969 -0.7 -0.021 -0.011 08/09/2005 55 0.980 -0.6 -0.009 -0.009 12/17/2002 52 0.990 -0.5 Total Hip(Left) 02/20/2022 71 0.775 -1.4 0.052 -0.003 03/16/2019 68 0.778 -1.3 0.055 -0.016 02/03/2016 65 0.793 -1.2 0.070 0.047* 11/19/2012 62 0.746 -1.6 0.023 -0.005 10/09/2010 60 0.750 -1.6 0.028 0.044* 08/28/2006 56 0.707 -1.9 -0.016 -0.062* 08/09/2005 55 0.769 -1.4 0.046 0.046 12/17/2002 52 0.723 -1.8 Total Hip(Right) 02/20/2022 71 0.797 -1.2 0.021 0.003 03/16/2019 68 0.794 -1.2 0.018 -0.018 02/03/2016 65 0.812 -1.1 0.036 -0.020 11/19/2012 62 0.832 -0.9 0.056 0.008 10/09/2010 60 0.824 -1.0 0.048 0.050* 08/28/2006 56 0.775 -1.4
== END ==
PROVIDERS: PCP Nurse Practitioner Family; Visit Provider Nurse Practitioner Family
DX: Z78.0 Asymptomatic menopausal state (principal); M85.852 Other specified disorders of bone density and structure, left thigh; M85.851 Other specified disorders of bone density and structure, right thigh
CPT/HCPCS: 77080

== ENCOUNTER 2022-02-26 00:52 | Day surgery (SDC) | payer MEDICARE, OTHER, SELFPAY ==
[2022-02-09 14:05] VITALS: BMI 26.6
--- NOTE | 2022-02-09 14:08 | PC.NURSE ---
PT STATES SHE JUST HAD AN EGD APPROXIMATELY 3 WEEKS AGO. STATES NOTHING HAS CHANGED IN HER HEALTH HISTORY OR MEDICATION INFORMATION. AWARE OF DATE AND TIME OF PROCEDURE AND NOTHING TO EAT OR DRINK AFTER MIDNIGHT. DISCUSSED MEDICATION. PT STATES SHE HAS NO QUESTIONS.
--- NOTE | 2022-02-25 15:29 | PM.HPGS ---
History of Present Illness History of Present Illness Consent: Risks, benefits, and alternatives have been discussed and questions answered. Patient agrees to proceed with procedure. Chief complaint: esophageal varices Narrative: Aimee Prieto is a 71 year old female Aimee Prieto is a 71 year old female ? Was known to have esophageal varices.? She had presented in July with hemorrhage and found to have varices.? Three bands were placed at that time.? In September she return for elective EGD and 2 more bands were placed on relatively large varices.? She returns for follow-up EGD at this time. Review of Systems Review of Systems: All systems reviewed & are unremarkable except as noted in HPI and below PMFSH Past Medical History Medical History Essential (primary) hypertension History of colon polyps Metacarpal bone fracture Left fourth and fifth metacarpal bases spring 2020 Non-alcoholic cirrhosis Osteopenia Radial styloid fracture left radial styloid spring 2020 Type 2 diabetes mellitus without complications Hemoglobin A1C 5.6 in 07/2020 Surgical History Surgical History History of cataract extraction History of cholecystectomy History of esophagogastroduodenoscopy (EGD) History of open reduction and internal fixation (ORIF) procedure right ankle- 2007 left wrist Family History Family History Father Acute myocardial infarction Mother Family history of chronic obstructive pulmonary disease Other Diabetes mellitus Family history of hypercholesterolemia Family history of throat cancer Family history of thyroid disease Social History Social History Social History: the patient lives home alone and is . She had 3 children and her son recently from [employer]. Patient does not drink alcohol and is lifelong nonsmoker. She does not use any marijuana or illicit drugs. She does not have a durable power securities attorney for healthcare. 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 Code status full code Smoking status: Never smoker Alcohol intake: never Substance use: never Substance use type: does not use Living arrangements: with family Gender identity (if verbalized by the patient): Female Spiritual care concerns: No Agree to blood products: Yes Meds Home Medications and Allergies Home Medications Medication Instructions Recorded Confirmed Type hjqjyhgvlfxr-unxugbtl-uuggyes-folic 1 tablet PO DAILY 01/07/20 02/26/22 History acid 400 mcg-vit K1 20 mcg tablet (One-A-Day Women's 50 Plus) cetirizine 10 mg tablet (All Day 10 mg PO DAILY 08/22/21 02/26/22 History Allergy (cetirizine)) ferrous sulfate 325 mg (65 mg 325 mg PO DAILY #30 tabs 10/20/21 02/26/22 Rx iron) tablet losartan 100 1 tablet PO DAILY #90 tabs 11/10/21 02/26/22 Rx mg-hydrochlorothiazide 12.5 mg tablet omeprazole 20 mg capsule,delayed 20 mg PO DAILY #90 caps 01/15/22 02/26/22 Rx release cholecalciferol (vitamin D3) 100 100 mcg PO DAILY 01/23/22 02/26/22 History mcg (4,000 unit) tablet metformin 500 mg tablet 500 mg PO DAILY #90 ea 02/02/22 02/26/22 Rx propranolol 10 mg tablet 10 mg PO Q12H #60 tabs 02/21/22 02/26/22 Rx Allergies Allergy/AdvReac Type Severity Reaction Status Date / Time No Known Allergies Allergy Verified 02/26/22 09:01 Exam Const: General: alert Orientation/consciousness: patient oriented x3 Resp: Auscultation: clear to auscultation bilaterally Cardio: Rhythm: regular rhythm GI: GI Palp: Yes Soft to palpation and No Tenderness to palpation present (GI) Neuro: General: patient oriented x3 Assessment and Plan Assessment and plan (1) Esophageal varices: Code(s): I85.00 - Esophageal varices without bleeding
[2022-02-26 09:03] VITALS: BP 141/67; PULSE 63; RESP 16; TEMP 36.6; O2SAT 100
--- NOTE | 2022-02-26 09:11 | WPDANESEPPF ---
Anes - Initial Pre Proc Eval Procedure: Operation Date: 02/26/22 10:00 Proposed Procedures p Esophagogastroduodenoscopy - Obey De Dios MD Date/Time: 02/26/22 09:11 Surgeon: Obey De Dios MD Pre Op Diagnosis: esophageal varices Patient Data Age: 71 Gender: F Height: 1.57 m Weight: 70.6 kg Last Vital Signs Temp 36.6 C 02/26/22 09:03 Pulse 63 02/26/22 09:03 Resp 16 02/26/22 09:03 BP 141/67 H 02/26/22 09:03 Pulse Ox 100 02/26/22 09:03 O2 Del Method Room Air 02/26/22 09:03 Allergies Allergy/AdvReac Type Severity Reaction Status Date / Time No Known Allergies Allergy Verified 02/26/22 09:01 Home Medications Medication Instructions Recorded Confirmed Type fqoeuqzfdgok-umagyhwd-afrxoyl-folic 1 tablet PO DAILY 01/07/20 02/26/22 History acid 400 mcg-vit K1 20 mcg tablet (One-A-Day Women's 50 Plus) cetirizine 10 mg tablet (All Day 10 mg PO DAILY 08/22/21 02/26/22 History Allergy (cetirizine)) ferrous sulfate 325 mg (65 mg 325 mg PO DAILY #30 tabs 10/20/21 02/26/22 Rx iron) tablet losartan 100 1 tablet PO DAILY #90 tabs 11/10/21 02/26/22 Rx mg-hydrochlorothiazide 12.5 mg tablet omeprazole 20 mg capsule,delayed 20 mg PO DAILY #90 caps 01/15/22 02/26/22 Rx release cholecalciferol (vitamin D3) 100 100 mcg PO DAILY 01/23/22 02/26/22 History mcg (4,000 unit) tablet metformin 500 mg tablet 500 mg PO DAILY #90 ea 02/02/22 02/26/22 Rx propranolol 10 mg tablet 10 mg PO Q12H #60 tabs 02/21/22 02/26/22 Rx Patient hx anesthesia problems: none Family hx anesthesia problems: none Results Review: All pre-operative results and documents have been reviewed as part of the pre-operative evaluation. [facility] Past Medical History Medical History Essential (primary) hypertension History of colon polyps Metacarpal bone fracture Left fourth and fifth metacarpal bases spring 2020 Non-alcoholic cirrhosis Osteopenia Radial styloid fracture left radial styloid spring 2020 Type 2 diabetes mellitus without complications Hemoglobin A1C 5.6 in 07/2020 Surgical History Surgical History (Updated 02/26/22 @ 09:11 by Scottie Burt MD) History of cataract extraction History of cholecystectomy History of esophagogastroduodenoscopy (EGD) History of open reduction and internal fixation (ORIF) procedure right ankle- 2007 left wrist Family History Family History Father Acute myocardial infarction Mother Family history of chronic obstructive pulmonary disease Other Diabetes mellitus Family history of hypercholesterolemia Family history of throat cancer Family history of thyroid disease Social History Social History Social History: the patient lives home alone and is . She had 3 children and her son recently from [employer]. Patient does not drink alcohol and is lifelong nonsmoker. She does not use any marijuana or illicit drugs. She does not have a durable power staff attorney for healthcare. 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 Code status full code Smoking status: Never smoker Alcohol intake: never Substance use: never Substance use type: does not use Living arrangements: with family Gender identity (if verbalized by the patient): Female Spiritual care concerns: No Agree to blood products: Yes Anes - Eval Final PreProcedure Day of Procedure 02/26/22 09:11 Patient weight: overweight Heart: regular rate and rhythm Lungs: clear to auscultation Airway: Mallampati scale class II Neurological: alert and oriented Last oral intake: >/= 8 hours ASA classification: III Emergent: no Anesthetic plan: proceed Anesthesia type and monitoring: general GIVS and standard monitoring Results Review: All pre-operative results and documents have been r
[2022-02-26 09:16] LABS: Glucose Point of Care 121 mg/dl (65-105)
[2022-02-26] MEDS: LACTATED RINGERS 1,000 ML 150 ML IV CONT (09:49)
[2022-02-26 09:55] VITALS: BP 114/61; PULSE 64; RESP 20; O2SAT 99
[2022-02-26 10:05] VITALS: BP 116/62; PULSE 62; RESP 18; O2SAT 100
[2022-02-26 10:15] VITALS: BP 119/64; PULSE 60; RESP 20; O2SAT 100
== END 2022-02-26 10:27 | disposition home or self-care (01) ==
PROVIDERS: PCP Nurse Practitioner Family; Visit Provider Internal Medicine Gastroenterology
PROC: 0DJ08ZZ Inspection of Upper Intestinal Tract, Via Natural or Artificial Opening Endoscopic (ICD-10-PCS; CPT 43235; principal; 2022-02-26 10:00)
DX: Z09 Encounter for follow-up examination after completed treatment for conditions other than malignant neoplasm (principal); I85.00 Esophageal varices without bleeding; K29.50 Unspecified chronic gastritis without bleeding; E11.9 Type 2 diabetes mellitus without complications; I10 Essential (primary) hypertension; K70.30 Alcoholic cirrhosis of liver without ascites; M85.89 Other specified disorders of bone density and structure, multiple sites; Z90.49 Acquired absence of other specified parts of digestive tract
CPT/HCPCS: 45385; 82948; J2704; J7120

== ENCOUNTER 2022-04-03 16:28 | Emergency (ER) | payer MEDICARE, OTHER, SELFPAY ==
[2022-04-03 16:34] VITALS: BP 138/70; PULSE 86; RESP 14; TEMP 37.8; O2SAT 100
--- NOTE | 2022-04-03 16:35 | ED.URI ---
HPI - URI/Sore Throat General Chief Complaint: Upper Respiratory Infection Stated Complaint: sore throat ears fever Time Seen by Provider: 04/03/22 16:35 Source: patient and RN notes reviewed History of Present Illness HPI Narrative: Patient is a 71-year-old female who presents to the Urgent Care with complaints of bilateral earache, fever, sore throat, body aches and chills. Patient states that it started yesterday. States that due to her cirrhosis of the liver she is not supposed to be taking NSAIDs or Tylenol. States that she did take 1 aspirin. Patient states her fever was 100.7. Denies of any nausea or vomiting. Denies any shortness of breath. Patient denies any ill exposures. No other acute complaints. No acute distress noted. Patient aware of the plan of care. Some parts of this dictation were generated by voice recognition software and may contain typographical and/or grammatical inaccuracies. Related Data Home Medications Medication Instructions Recorded Confirmed olcsuxwtpege-nzbwyatd-bopopec-folic 1 tablet PO DAILY 01/07/20 02/26/22 acid 400 mcg-vit K1 20 mcg tablet (One-A-Day Women's 50 Plus) cetirizine 10 mg tablet (All Day 10 mg PO DAILY 08/22/21 02/26/22 Allergy (cetirizine)) cholecalciferol (vitamin D3) 100 100 mcg PO DAILY 01/23/22 02/26/22 mcg (4,000 unit) tablet Allergies Allergy/AdvReac Type Severity Reaction Status Date / Time No Known Allergies Allergy Verified 04/03/22 16:43 Review of Systems Review of Systems: CONSTITUTIONAL: Reports of fever, chills, sweats EYES: Denies visual changes, redness, or discharge. ENT: Denies rhinorrhea, congestion. Reports of bilateral otalgia and sore throat CARDIOVASCULAR: Denies chest pain, palpitations, or edema. RESPIRATORY: Denies cough or dyspnea. GASTROINTESTINAL: Denies abdominal pain, nausea, vomiting, or diarrhea. GENITOURINARY: Denies dysuria or hematuria. SKIN: Denies rash or itching. MUSCULOSKELETAL: Denies back pain, joint pain. Reports of body aches NEUROLOGIC: Denies headache, numbness, or weakness. All other systems reviewed are negative, except as documented in HPI. [facility] Past Medical History Medical History Essential (primary) hypertension History of colon polyps Metacarpal bone fracture Left fourth and fifth metacarpal bases spring 2020 Non-alcoholic cirrhosis Osteopenia Radial styloid fracture left radial styloid spring 2020 Type 2 diabetes mellitus without complications Hemoglobin A1C 5.6 in 07/2020 Surgical History Surgical History History of cataract extraction History of cholecystectomy History of esophagogastroduodenoscopy (EGD) History of open reduction and internal fixation (ORIF) procedure right ankle- 2007 left wrist Family History Family History Father Acute myocardial infarction Mother Family history of chronic obstructive pulmonary disease Other Diabetes mellitus Family history of hypercholesterolemia Family history of throat cancer Family history of thyroid disease Social History Social History Social History: the patient lives home alone and is . She had 3 children and her son recently from [place]. Patient does not drink alcohol and is lifelong nonsmoker. She does not use any marijuana or illicit drugs. She does not have a durable power tax attorney for healthcare. 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 Code status full code Smoking status: Never smoker Alcohol intake: never Substance use: never Substance use type: does not use Gender identity (if verbalized by the patient): Female Spiritual care concerns: No Agree to blood products: Yes Comments At the time of my signature, I reviewed and agree with the
== END 2022-04-03 17:27 | disposition home or self-care (01) ==
PROVIDERS: Emergency Provider Nurse Practitioner Family; PCP Family Medicine
DX: B34.9 Viral infection, unspecified (principal); K74.60 Unspecified cirrhosis of liver; I10 Essential (primary) hypertension; E11.9 Type 2 diabetes mellitus without complications
CPT/HCPCS: 87081; 87804; 87880; 99213; G0463

== ENCOUNTER 2022-10-15 01:16 | Day surgery (SDC) | payer MEDICARE, OTHER, SELFPAY ==
[2022-10-02 13:13] VITALS: BMI 26.5
--- NOTE | 2022-10-12 20:14 | PM.HPGS ---
History of Present Illness History of Present Illness Consent: Risks, benefits, and alternatives have been discussed and questions answered. Patient agrees to proceed with procedure. Chief complaint: esophageal varacies Narrative: Aimee Prieto is a 72 year old female found to have esophageal varices last year, with banding in August, September, and January with 3,2,then 1 band respectively.No banding was required with her most recent EGD in Feb 2022. Review of Systems Review of Systems: All systems reviewed & are unremarkable except as noted in HPI and below PMFSH Past Medical History Medical History Essential (primary) hypertension History of colon polyps Metacarpal bone fracture Left fourth and fifth metacarpal bases spring 2020 Non-alcoholic cirrhosis Osteopenia Radial styloid fracture left radial styloid spring 2020 Type 2 diabetes mellitus without complications Hemoglobin A1C 5.6 in 07/2020 Surgical History Surgical History History of cataract extraction History of cholecystectomy History of esophagogastroduodenoscopy (EGD) History of open reduction and internal fixation (ORIF) procedure right ankle- 2007 left wrist Family History Family History Father Acute myocardial infarction Mother Family history of chronic obstructive pulmonary disease Other Diabetes mellitus Family history of hypercholesterolemia Family history of throat cancer Family history of thyroid disease Social History Social History Social History: the patient lives home alone and is . She had 3 children and her son recently from [place]. Patient does not drink alcohol and is lifelong nonsmoker. She does not use any marijuana or illicit drugs. She does not have a durable power environmental service aide for healthcare. 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 Code status full code Smoking status: Never smoker Alcohol intake: never Substance use: never Substance use type: does not use Lack of Transportation: No Lack of Food: Never True Current Housing: I Have Housing Concerned About Future Housing: No Difficulty Paying Gas/Electric Bills: No Difficulty Paying for Meds: No Currently Unemployed: No Education: High School Diploma/GED Difficulty w/ Childcare or Family Care: No Living arrangements: alone Occupation/Education: occupation Gender identity (if verbalized by the patient): Female Spiritual care concerns: No Agree to blood products: Yes Meds Home Medications and Allergies Home Medications Medication Instructions Recorded Confirmed Type gnhqqtwwjsct-kuatybab-mrwuloh-folic 1 tablet PO DAILY 01/07/20 10/02/22 History acid 400 mcg-vit K1 20 mcg tablet (One-A-Day Women's 50 Plus) omeprazole 20 mg capsule,delayed See Rx Instructions .Route 07/16/22 10/02/22 Rx release .COMPLEX #90 caps losartan 100 1 tablet PO DAILY #90 tabs 07/31/22 10/02/22 Rx mg-hydrochlorothiazide 12.5 mg tablet ferrous sulfate 325 mg (65 mg 325 mg PO DAILY #30 tabs 09/03/22 10/02/22 Rx iron) tablet metformin 500 mg tablet 500 mg PO DAILY #90 ea 09/03/22 10/02/22 Rx propranolol 10 mg tablet 10 mg PO Q12H #60 tabs 09/04/22 10/02/22 Rx cholecalciferol (vitamin D3) 25 25 mcg PO DAILY 10/02/22 10/02/22 History mcg (1,000 unit) capsule (Vitamin D3) Allergies Allergy/AdvReac Type Severity Reaction Status Date / Time No Known Allergies Allergy Verified 10/15/22 08:20 Exam Const: General: alert Orientation/consciousness: patient oriented x3 Resp: Auscultation: clear to auscultation bilaterally Cardio: Rhythm: regular rhythm GI: GI Palp: Yes Soft to palpation and No Tenderness to palpation present (GI) Neuro: General: patient oriented x3
[2022-10-15 08:21] VITALS: BP 114/52; PULSE 65; RESP 18; TEMP 36.2; O2SAT 100
[2022-10-15] MEDS: LACTATED RINGERS 1,000 ML 150 ML IV CONT (08:41)
[2022-10-15 09:00] LABS: Glucose Point of Care 122 mg/dl (65-105)
--- NOTE | 2022-10-15 09:18 | WPDANESEPPF ---
Anes - Initial Pre Proc Eval Procedure: Operation Date: 10/15/22 09:30 Proposed Procedures p Esophagogastroduodenoscopy EGD - Obey De Dios MD Date/Time: 10/15/22 09:18 Surgeon: Obey De Dios MD Pre Op Diagnosis: esophageal varacies Patient Data Age: 72 Gender: F Height: 1.6 m Weight: 72.3 kg Last Vital Signs Temp 97.2 F L 10/15/22 08:21 Pulse 65 10/15/22 08:21 Resp 18 10/15/22 08:21 BP 114/52 L 10/15/22 08:21 Pulse Ox 100 10/15/22 08:21 O2 Del Method Room Air 10/15/22 08:21 Allergies Allergy/AdvReac Type Severity Reaction Status Date / Time No Known Allergies Allergy Verified 10/15/22 08:20 Home Medications Medication Instructions Recorded Confirmed Type rqutcpnvmzdo-tmlcsovr-lsgmxqd-folic 1 tablet PO DAILY 01/07/20 10/02/22 History acid 400 mcg-vit K1 20 mcg tablet (One-A-Day Women's 50 Plus) omeprazole 20 mg capsule,delayed See Rx Instructions .Route 07/16/22 10/02/22 Rx release .COMPLEX #90 caps losartan 100 1 tablet PO DAILY #90 tabs 07/31/22 10/02/22 Rx mg-hydrochlorothiazide 12.5 mg tablet ferrous sulfate 325 mg (65 mg 325 mg PO DAILY #30 tabs 09/03/22 10/02/22 Rx iron) tablet metformin 500 mg tablet 500 mg PO DAILY #90 ea 09/03/22 10/02/22 Rx propranolol 10 mg tablet 10 mg PO Q12H #60 tabs 09/04/22 10/02/22 Rx cholecalciferol (vitamin D3) 25 25 mcg PO DAILY 10/02/22 10/02/22 History mcg (1,000 unit) capsule (Vitamin D3) Laboratory Tests 10/15/22 08:37 POC Capillary Glucose 122 H mg/dl (65-105) Patient hx anesthesia problems: none Family hx anesthesia problems: none Results Review: All pre-operative results and documents have been reviewed as part of the pre-operative evaluation. [facility] Past Medical History Medical History Essential (primary) hypertension History of colon polyps Metacarpal bone fracture Left fourth and fifth metacarpal bases spring 2020 Non-alcoholic cirrhosis Osteopenia Radial styloid fracture left radial styloid spring 2020 Type 2 diabetes mellitus without complications Hemoglobin A1C 5.6 in 07/2020 Surgical History Surgical History History of cataract extraction History of cholecystectomy History of esophagogastroduodenoscopy (EGD) History of open reduction and internal fixation (ORIF) procedure right ankle- 2007 left wrist Family History Family History Father Acute myocardial infarction Mother Family history of chronic obstructive pulmonary disease Other Diabetes mellitus Family history of hypercholesterolemia Family history of throat cancer Family history of thyroid disease Social History Social History (Updated 07/31/22 @ 13:02 by Davina Tristan [facility]) Social History: the patient lives home alone and is . She had 3 children and her son recently from [employer]. Patient does not drink alcohol and is lifelong nonsmoker. She does not use any marijuana or illicit drugs. She does not have a durable power finance attorney for healthcare. 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 Code status full code Smoking status: Never smoker Alcohol intake: never Substance use: never Substance use type: does not use Lack of Transportation: No Lack of Food: Never True Current Housing: I Have Housing Concerned About Future Housing: No Difficulty Paying Gas/Electric Bills: No Difficulty Paying for Meds: No Currently Unemployed: No Education: High School Diploma/GED Difficulty w/ Childcare or Family Care: No Living arrangements: alone Occupation/Education: occupation Gender identity (if verbalized by the patient): Female Spiritual care concerns: No Agree to blood products: Yes Anes - Eval Final PreProcedure Day of Procedure 10/15/22 0
[2022-10-15 10:10] VITALS: BP 107/64; PULSE 60; RESP 16; O2SAT 97
[2022-10-15 10:20] VITALS: BP 106/71; PULSE 63; RESP 18; O2SAT 98
[2022-10-15 10:30] VITALS: BP 123/72; PULSE 66; RESP 14; O2SAT 99
== END 2022-10-15 10:45 | disposition home or self-care (01) ==
PROVIDERS: PCP Family Medicine; Visit Provider Internal Medicine Gastroenterology
PROC: 0DJ08ZZ Inspection of Upper Intestinal Tract, Via Natural or Artificial Opening Endoscopic (ICD-10-PCS; CPT 43235; principal; 2022-10-15 09:30)
DX: K74.60 Unspecified cirrhosis of liver (principal); I85.10 Secondary esophageal varices without bleeding; E11.9 Type 2 diabetes mellitus without complications; I10 Essential (primary) hypertension
CPT/HCPCS: 43244; 82948; J2704; J7120

== ENCOUNTER 2022-12-18 12:08 | Outpatient (CLI) | payer MEDICARE, OTHER, SELFPAY ==
[2022-12-18 12:32] LABS: Basophils Percent Auto 0.8 % (0.2-1.2); Eosinophils Absolute Auto 0.3 K/mm3 (0-0.3); Eosinophils Percent Auto 5.1 % (0-4.4); Hematocrit 40.1 % (37.0-47.0); Hemoglobin 13.2 g/dL (12.0-15.0); Immature Granulocyte Absolute 0.01 K/mm3 (0.00-0.031); Immature Granulocyte Percent A 0.2 % (0-0.5); Lymphocytes Absolute Auto 1.17 K/mm3 (0.9-3.2); Lymphocytes Percent Auto 22.9 % (18.3-44.2); Mean Corpuscular HGB Conc 32.9 g/dl (32-36); Mean Corpuscular Hemoglobin 32.1 pg (26-34); Mean Corpuscular Volume 97.6 fl (80-100); Mean Platelet Volume 9.5 fl (7.4-10.4); Monocytes Absolute Auto 0.6 K/mm3 (0.1-0.6); Monocytes Percent Auto 12.1 % (2.6-8.5); Neutrophils Percent Auto 58.9 % (45.5-73.1); Platelet Count Result 148 k/mm3 (150-375); Red Blood Count 4.11 M/mm3 (4.2-5.4); Red Cell Distribution Width 13.6 % (11.5-14.5); White Blood Count 5.1 K/mm3 (4.5-10.0)
[2022-12-18 12:42] LABS: Ammonia 57 umol/L (9-30)
[2022-12-18 12:45] LABS: INR 1.1; Prothrombin Time 14.9 Seconds (11.1-14.7)
== END 2022-12-18 12:09 | disposition home or self-care (01) ==
PROVIDERS: PCP Family Medicine; Visit Provider Internal Medicine Gastroenterology
DX: K74.60 Unspecified cirrhosis of liver (principal); Z86.010 Personal history of colon polyps
CPT/HCPCS: 36415; 82140; 85025; 85610

== ENCOUNTER → 2023-01-14 09:41 | Outpatient (CLI) | payer MEDICARE, OTHER, SELFPAY ==
--- NOTE | ~2023-01-14 | US_ITS ---
EXAMINATION: US abdomen complete DATE: 01/14/2023 10:51 INDICATION: Unspecified cirrhosis of the liver TECHNIQUE: Multiple grayscale and Doppler ultrasound images of the abdomen were obtained. COMPARISON: 07/07/2021 FINDINGS: Bowel gas obscures visualization of the pancreas. The visualized portions of the pancreas a re unremarkable. The liver demonstrates heterogeneous echotexture. There is nodularity of the liver s urface. Normal hepatopetal flow in the main portal vein. The gallbladder is normal with no abnormal w all thickening, pericholecystic fluid or stones. The normal common bile duct measures 7 mm. There was no sonographic Moore sign. The visualized portions of the aorta and inferior vena cava are normal. The spleen is normal in appearance and measures 11.8 cm. The right kidney measures 9.3 x 4.6 x 5.5 cm . The left kidney measures 9.5 x 5.2 x 4.4 cm. The kidneys demonstrate normal parenchymal echogenicit y. There is no hydronephrosis. IMPRESSION: 1. Findings consistent with cirrhosis. Reviewed, dictated and finalized at location B.
== END ==
PROVIDERS: PCP Family Medicine; Visit Provider Internal Medicine Gastroenterology
DX: K74.60 Unspecified cirrhosis of liver (principal)
CPT/HCPCS: 76700

== ENCOUNTER → 2023-01-14 09:48 | Outpatient (CLI) | payer MEDICARE, OTHER, SELFPAY ==
--- NOTE | ~2023-01-14 | MM_ITS ---
EXAMINATION: MM screening ana BI w jose l HISTORY: Screening TECHNIQUE: Craniocaudal and mediolateral oblique 3-D tomosynthesis images were obtained and synthetic 2-D images were generated. CAD analysis was submitted and interpreted. COMPARISON: No prior mammogram is available for comparison at this institution. BREAST PARENCHYMAL COMPOSITION: There are scattered areas of fibroglandular density. FINDINGS: There is no evidence of suspicious mass, calcification, or architectural distortion to sugg est malignancy in either breast. There has been no suspicious interval change. IMPRESSION: 1. No mammographic evidence of malignancy. 2. Recommend routine screening mammography in one year. BI-RADS Category 1: Negative Reviewed, dictated and finalized at location A.
== END ==
PROVIDERS: PCP Nurse Practitioner Family; Visit Provider Nurse Practitioner Family
DX: Z12.31 Encounter for screening mammogram for malignant neoplasm of breast (principal)
CPT/HCPCS: 77063; 77067

== ENCOUNTER 2023-01-21 01:17 | Day surgery (SDC) | payer MEDICARE, OTHER, SELFPAY ==
[2023-01-02 14:39] VITALS: BMI 26.6
--- NOTE | 2023-01-21 06:39 | PM.HPGS ---
History of Present Illness History of Present Illness Consent: Risks, benefits, and alternatives have been discussed and questions answered. Patient agrees to proceed with procedure. Chief complaint: esophageal varices Narrative: Aimee Prieto is a 72 year old female Who is here for follow-up of esophageal varices. She had EGD and colonoscopy not quite 2 years ago to investigate anemia and she was found have small varices. Some months later she presented with melena and had larger varices requiring banding. Four months ago, her last EGD she again had significant varices only 1 of which however required banding at that time. She does take propanolol 10 mg b.i.d.. Review of Systems Review of Systems: All systems reviewed & are unremarkable except as noted in HPI and below PMFSH Past Medical History Medical History Essential (primary) hypertension History of colon polyps Metacarpal bone fracture Left fourth and fifth metacarpal bases spring 2020 Non-alcoholic cirrhosis Osteopenia Radial styloid fracture left radial styloid spring 2020 Type 2 diabetes mellitus without complications Hemoglobin A1C 5.6 in 07/2020 Surgical History Surgical History History of cataract extraction History of cholecystectomy History of esophagogastroduodenoscopy (EGD) History of open reduction and internal fixation (ORIF) procedure right ankle- 2007 left wrist Family History Family History Father Acute myocardial infarction Mother Family history of chronic obstructive pulmonary disease Other Diabetes mellitus Family history of hypercholesterolemia Family history of throat cancer Family history of thyroid disease Social History Social History Social History: the patient lives home alone and is . She had 3 children and her son recently from [place]. Patient does not drink alcohol and is lifelong nonsmoker. She does not use any marijuana or illicit drugs. She does not have a durable power deputy prosecuting attorney for healthcare. 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 Code status full code Smoking status: Never smoker Alcohol intake: never Substance use: never Substance use type: does not use Lack of Transportation: No Lack of Food: Never True Current Housing: I Have Housing Concerned About Future Housing: No Difficulty Paying Gas/Electric Bills: No Difficulty Paying for Meds: No Currently Unemployed: No Education: High School Diploma/GED Difficulty w/ Childcare or Family Care: No Living arrangements: alone Occupation/Education: occupation Gender identity (if verbalized by the patient): Female Spiritual care concerns: No Agree to blood products: Yes Meds Home Medications and Allergies Home Medications Medication Instructions Recorded Confirmed Type ymnhwjoivbwl-afpfcjeo-vbztuks-folic 1 tablet PO DAILY 01/07/20 01/21/23 History acid 400 mcg-vit K1 20 mcg tablet (One-A-Day Women's 50 Plus) metformin 500 mg tablet 500 mg PO DAILY #90 ea 09/03/22 01/21/23 Rx propranolol 10 mg tablet 10 mg PO Q12H #60 tabs 09/04/22 01/21/23 Rx cholecalciferol (vitamin D3) 25 25 mcg PO DAILY 10/02/22 01/21/23 History mcg (1,000 unit) capsule (Vitamin D3) losartan 100 1 tablet PO DAILY #90 tabs 11/12/22 01/21/23 Rx mg-hydrochlorothiazide 12.5 mg tablet ferrous sulfate 325 mg (65 mg 325 mg PO DAILY #30 tabs 12/07/22 01/21/23 Rx iron) tablet omeprazole 20 mg capsule,delayed See Rx Instructions .Route 01/07/23 01/21/23 Rx release .COMPLEX #90 caps Allergies Allergy/AdvReac Type Severity Reaction Status Date / Time No Known Allergies Allergy Verified 01/21/23 10:22 Exam Const: General: alert Orientation/consciousness: patient
[2023-01-21 10:23] VITALS: BP 132/60; PULSE 60; RESP 17; TEMP 36.7; O2SAT 99; BMI 28.3
[2023-01-21] MEDS: LACTATED RINGERS 1,000 ML 150 ML IV CONT (10:59)
--- NOTE | 2023-01-21 11:09 | WPDANESEPPF ---
Anes - Initial Pre Proc Eval Procedure: Operation Date: 01/21/23 11:30 Proposed Procedures p Esophagogastroduodenoscopy - Obey De Dios MD Date/Time: 01/21/23 11:09 Surgeon: Obey De Dios MD Pre Op Diagnosis: esophageal varices Patient Data Age: 72 Gender: F Height: 1.6 m Weight: 72.7 kg Last Vital Signs Temp 36.7 C 01/21/23 10:23 Pulse 60 01/21/23 10:23 Resp 17 01/21/23 10:23 BP 132/60 01/21/23 10:23 Pulse Ox 99 01/21/23 10:23 O2 Del Method Room Air 01/21/23 10:23 Allergies Allergy/AdvReac Type Severity Reaction Status Date / Time No Known Allergies Allergy Verified 01/21/23 10:22 Home Medications Medication Instructions Recorded Confirmed Type jgzuboenhpfn-onfigkbw-wtjliej-folic 1 tablet PO DAILY 01/07/20 01/21/23 History acid 400 mcg-vit K1 20 mcg tablet (One-A-Day Women's 50 Plus) metformin 500 mg tablet 500 mg PO DAILY #90 ea 09/03/22 01/21/23 Rx propranolol 10 mg tablet 10 mg PO Q12H #60 tabs 09/04/22 01/21/23 Rx cholecalciferol (vitamin D3) 25 25 mcg PO DAILY 10/02/22 01/21/23 History mcg (1,000 unit) capsule (Vitamin D3) losartan 100 1 tablet PO DAILY #90 tabs 11/12/22 01/21/23 Rx mg-hydrochlorothiazide 12.5 mg tablet ferrous sulfate 325 mg (65 mg 325 mg PO DAILY #30 tabs 12/07/22 01/21/23 Rx iron) tablet omeprazole 20 mg capsule,delayed See Rx Instructions .Route 01/07/23 01/21/23 Rx release .COMPLEX #90 caps Patient hx anesthesia problems: none Family hx anesthesia problems: none Results Review: All pre-operative results and documents have been reviewed as part of the pre-operative evaluation. [facility] Past Medical History Medical History Essential (primary) hypertension History of colon polyps Metacarpal bone fracture Left fourth and fifth metacarpal bases spring 2020 Non-alcoholic cirrhosis Osteopenia Radial styloid fracture left radial styloid spring 2020 Type 2 diabetes mellitus without complications Hemoglobin A1C 5.6 in 07/2020 Surgical History Surgical History History of cataract extraction History of cholecystectomy History of esophagogastroduodenoscopy (EGD) History of open reduction and internal fixation (ORIF) procedure right ankle- 2007 left wrist Family History Family History Father Acute myocardial infarction Mother Family history of chronic obstructive pulmonary disease Other Diabetes mellitus Family history of hypercholesterolemia Family history of throat cancer Family history of thyroid disease Social History Social History Social History: the patient lives home alone and is . She had 3 children and her son recently from [place] [employer]. Patient does not drink alcohol and is lifelong nonsmoker. She does not use any marijuana or illicit drugs. She does not have a durable power ip attorney for healthcare. 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 Code status full code Smoking status: Never smoker Alcohol intake: never Substance use: never Substance use type: does not use Lack of Transportation: No Lack of Food: Never True Current Housing: I Have Housing Concerned About Future Housing: No Difficulty Paying Gas/Electric Bills: No Difficulty Paying for Meds: No Currently Unemployed: No Education: High School Diploma/GED Difficulty w/ Childcare or Family Care: No Living arrangements: alone Occupation/Education: occupation Gender identity (if verbalized by the patient): Female Spiritual care concerns: No Agree to blood products: Yes Anes - Eval Final PreProcedure Day of Procedure 01/21/23 11:09 Patient weight: overweight Heart: regular rate and rhythm Lungs: clear to auscultation Airway: Mallampati s
[2023-01-21 11:30] VITALS: BP 108/60; PULSE 55; RESP 17; O2SAT 99
[2023-01-21 11:40] VITALS: BP 113/76; PULSE 59; RESP 20; O2SAT 99
[2023-01-21 11:50] VITALS: BP 122/63; PULSE 54; RESP 13; O2SAT 99
[2023-01-21 17:19] LABS: Glucose Point of Care 101 mg/dl (65-105)
== END 2023-01-21 12:00 | disposition home or self-care (01) ==
PROVIDERS: PCP Family Medicine; Visit Provider Internal Medicine Gastroenterology
PROC: 0DJ08ZZ Inspection of Upper Intestinal Tract, Via Natural or Artificial Opening Endoscopic (ICD-10-PCS; CPT 43235; principal; 2023-01-21 11:30)
DX: K74.60 Unspecified cirrhosis of liver (principal); I85.10 Secondary esophageal varices without bleeding; D64.9 Anemia, unspecified; I10 Essential (primary) hypertension; E11.9 Type 2 diabetes mellitus without complications; Z79.84 Long term (current) use of oral hypoglycemic drugs
CPT/HCPCS: 43235; 82948; J2704; J7120

== ENCOUNTER 2023-08-02 07:56 | Outpatient (CLI) | payer MEDICARE, OTHER, SELFPAY ==
--- NOTE | ~2023-08-02 | US_ITS ---
Abdominal Sonogram: Real-time sonographic imaging of the abdomen was performed. Clinical History: Cirrhosis Findings: The liver appears minimally heterogeneous, with no evidence of mass lesion or bile duct di latation. Main portal vein demonstrates normal direction of flow. The spleen is upper limits of baron l in size without evidence of focal lesion. The gallbladder is absent, compatible prior cholecystect fitz. The common bile duct measures 9 mm. The visualized pancreas, aorta, and IVC are unremarkable. The right kidney measures 10.7 cm in length and the left kidney measures 9.6 cm. There is no hydrone phrosis or renal calculus. Impression: Minimally heterogeneous hepatic echotexture. Correlate clinically and with lab values for cirrhosis. Status post cholecystectomy. Reviewed, dictated and finalized at [facility]. 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 Correlate clinically and with lab values for cirrhosis. Status post cholecystectomy.
[2023-08-02 08:46] LABS: Eosinophils Absolute Auto 0.2 K/mm3 (0-0.3); Eosinophils Percent Auto 4.8 % (0-4.4); Hematocrit 39.1 % (37.0-47.0); Immature Granulocyte Absolute 0.01 K/mm3 (0.00-0.031); Immature Granulocyte Percent A 0.2 % (0-0.5); Lymphocytes Percent Auto 24.2 % (18.3-44.2); Mean Corpuscular HGB Conc 33.2 g/dl (32-36); Mean Corpuscular Volume 99.2 fl (80-100); Mean Platelet Volume 9.8 fl (7.4-10.4); Monocytes Absolute Auto 0.5 K/mm3 (0.1-0.6); Monocytes Percent Auto 10.9 % (2.6-8.5); Neutrophils Absolute Auto 2.4 K/mm3 (1.3-6.7); Neutrophils Percent Auto 58.9 % (45.5-73.1); Platelet Count Result 130 k/mm3 (150-375); Red Blood Count 3.94 M/mm3 (4.2-5.4); Red Cell Distribution Width 13.8 % (11.5-14.5); White Blood Count 4.1 K/mm3 (4.5-10.0)
[2023-08-02 09:00] LABS: INR 1.2; Prothrombin Time 15.8 Seconds (11.1-14.7)
[2023-08-02 10:13] LABS: Hemoglobin A1C 6.1 % (<5.7)
[2023-08-02 10:35] LABS: Cholesterol 163 mg/dL (0-200); HDL Direct 48 mg/dL; Triglycerides 71 mg/dL (<150)
[2023-08-02 10:46] LABS: LDL Cholesterol Direct 96 mg/dL
[2023-08-02 10:55] LABS: Alanine Aminotransferase 37 U/L (6-35); Albumin Level 3.5 g/dL (3.5-5.1); Alkaline Phosphatase 116 U/L (38-126); Anion Gap 4 mmol/L (8-16); Aspartate Amino Transferase 58 U/L (14-36); Bilirubin,Total 1.4 mg/dL (0.2-1.3); Blood Urea Nitrogen 8 mg/dL (7-17); Calcium 8.8 mg/dL (8.4-10.2); Carbon Dioxide 27 mmol/L (22-30); Chloride 111 mmol/L (98-107); Estimated Glomerular Filt Rate > 60; Glucose 123 mg/dL (65-110); Potassium 3.7 mmol/L (3.4-5.0); Sodium 142 mmol/L (137-145)
[2023-08-02 11:10] LABS: Vitamin D 25 Hydroxy 71.9 ng/mL
[2023-08-08 17:32] LABS: Alpha Fetoprotein Tumor Marker 3.9 ng/mL (<6.1)
== END 2023-08-02 07:57 | disposition home or self-care (01) ==
PROVIDERS: Nurse Practitioner Family; PCP Family Medicine; Referring Provider Nurse Practitioner Family; Visit Provider Internal Medicine Gastroenterology
DX: K74.60 Unspecified cirrhosis of liver (principal); E78.5 Hyperlipidemia, unspecified; I10 Essential (primary) hypertension; E11.9 Type 2 diabetes mellitus without complications; E55.9 Vitamin D deficiency, unspecified; I85.00 Esophageal varices without bleeding
CPT/HCPCS: 36415; 76700; 80053; 80061; 82105; 82306; 83036; 85025; 85610

== ENCOUNTER 2023-09-23 01:36 | Day surgery (SDC) | payer MEDICARE, OTHER, SELFPAY ==
[2023-09-23 07:25] VITALS: BP 120/41; PULSE 58; RESP 16; TEMP 36.4; O2SAT 100
[2023-09-23] MEDS: LACTATED RINGERS 1,000 ML 150 ML IV CONT (07:38)
[2023-09-23 07:39] LABS: Glucose Point of Care 104 mg/dl (65-105)
--- NOTE | 2023-09-23 08:09 | WPDANESEPPF ---
Anes - Initial Pre Proc Eval Procedure: Operation Date: 09/23/23 08:30 Proposed Procedures p Esophagogastroduodenoscopy - Osmar Vyas MD Date/Time: 09/23/23 08:09 Surgeon: Osmar Vyas MD Pre Op Diagnosis: Esophageal varices and Cirrhosis Patient Data Age: 73 Gender: F Height: Weight: 73.5 kg Last Vital Signs Temp 97.5 F L 09/23/23 07:25 Pulse 58 L 09/23/23 07:25 Resp 16 09/23/23 07:25 BP 120/41 L 09/23/23 07:25 Pulse Ox 100 09/23/23 07:25 O2 Del Method Room Air 09/23/23 07:25 Allergies Allergy/AdvReac Type Severity Reaction Status Date / Time No Known Allergies Allergy Verified 09/23/23 07:23 Home Medications Medication Instructions Recorded Confirmed Type xeojabaiiuup-eedhofqv-bjphxwu-folic 1 tablet PO DAILY 01/07/20 09/23/23 History acid 400 mcg-vit K1 20 mcg tablet (One-A-Day Women's 50 Plus) cholecalciferol (vitamin D3) 25 25 mcg PO DAILY 10/02/22 09/23/23 History mcg (1,000 unit) capsule (Vitamin D3) metformin 500 mg tablet 500 mg PO DAILY #90 ea 06/11/23 09/23/23 Rx losartan 100 1 tablet PO DAILY #90 tabs 08/02/23 09/23/23 Rx mg-hydrochlorothiazide 12.5 mg tablet omeprazole 20 mg capsule,delayed 20 mg PO DAILY 08/20/23 09/23/23 History release propranolol 10 mg tablet See Rx Instructions .Route 09/05/23 09/23/23 Rx .COMPLEX #60 tabs ferrous sulfate 325 mg (65 mg 325 mg PO DAILY #30 tabs 09/09/23 09/23/23 Rx iron) tablet Laboratory Tests 09/23/23 07:35 POC Capillary Glucose 104 mg/dl (65-105) Patient hx anesthesia problems: none Family hx anesthesia problems: none Results Review: All pre-operative results and documents have been reviewed as part of the pre-operative evaluation. PENDING SALE TO [facility] Past Medical History Medical History (Updated 08/02/23 @ 15:25 by Obey De Dios MD) Abdominal pain Cirrhosis Dizziness Essential (primary) hypertension GI (gastrointestinal bleed) History of colon polyps Iron deficiency anemia Melena Metacarpal bone fracture Left fourth and fifth metacarpal bases spring 2020 Non-alcoholic cirrhosis Osteopenia Radial styloid fracture left radial styloid spring 2020 Type 2 diabetes mellitus without complications Hemoglobin A1C 5.6 in 07/2020 Surgical History Surgical History History of cataract extraction History of cholecystectomy History of esophagogastroduodenoscopy (EGD) History of open reduction and internal fixation (ORIF) procedure right ankle- 2007 left wrist Family History Family History Father Acute myocardial infarction Mother Family history of chronic obstructive pulmonary disease Other Diabetes mellitus Family history of hypercholesterolemia Family history of throat cancer Family history of thyroid disease Social History Social History Social History: the patient lives home alone and is . She had 3 children and her son recently from [place]. Patient does not drink alcohol and is lifelong nonsmoker. She does not use any marijuana or illicit drugs. She does not have a durable power mat puncher for healthcare. 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 Code status full code Smoking status: Never smoker Alcohol intake: never Substance use: never Substance use type: does not use Lack of Transportation: No Lack of Food: Never True Current Housing: I Have Housing Concerned About Future Housing: No Difficulty Paying Gas/Electric Bills: No Difficulty Paying for Meds: No Currently Unemployed: No Education: Associate Degree Difficulty w/ Childcare or Family Care: No Living arrangements: alone Occupation/Education: occupation Gender identity (if verbalized by the patient): Female Spiritual care concerns: No
--- NOTE | 2023-09-23 08:26 | PM.HPGS ---
History of Present Illness History of Present Illness Consent: Risks, benefits, and alternatives have been discussed and questions answered. Patient agrees to proceed with procedure. Chief complaint: Esophageal varices and Cirrhosis Narrative: Aimee Prieto is a 73 year old female with cirrhosis and previous EV that required banding, last EGD 01/2023 with only small size, no more banding. She is using propranolol, no recent GIB. Review of Systems Review of Systems: All systems reviewed & are unremarkable except as noted in HPI and below PMFSH Past Medical History Medical History (Updated 08/02/23 @ 15:25 by Obey De Dios MD) Abdominal pain Cirrhosis Dizziness Essential (primary) hypertension GI (gastrointestinal bleed) History of colon polyps Iron deficiency anemia Melena Metacarpal bone fracture Left fourth and fifth metacarpal bases spring 2020 Non-alcoholic cirrhosis Osteopenia Radial styloid fracture left radial styloid spring 2020 Type 2 diabetes mellitus without complications Hemoglobin A1C 5.6 in 07/2020 Surgical History Surgical History History of cataract extraction History of cholecystectomy History of esophagogastroduodenoscopy (EGD) History of open reduction and internal fixation (ORIF) procedure right ankle- 2008 left wrist Family History Family History Father Acute myocardial infarction Mother Family history of chronic obstructive pulmonary disease Other Diabetes mellitus Family history of hypercholesterolemia Family history of throat cancer Family history of thyroid disease Social History Social History Social History: the patient lives home alone and is . She had 3 children and her son recently from [place]. Patient does not drink alcohol and is lifelong nonsmoker. She does not use any marijuana or illicit drugs. She does not have a durable power prosecuting attorney for healthcare. 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 Code status full code Smoking status: Never smoker Alcohol intake: never Substance use: never Substance use type: does not use Lack of Transportation: No Lack of Food: Never True Current Housing: I Have Housing Concerned About Future Housing: No Difficulty Paying Gas/Electric Bills: No Difficulty Paying for Meds: No Currently Unemployed: No Education: Associate Degree Difficulty w/ Childcare or Family Care: No Living arrangements: alone Occupation/Education: occupation Gender identity (if verbalized by the patient): Female Spiritual care concerns: No Agree to blood products: Yes Meds Home Medications and Allergies Home Medications Medication Instructions Recorded Confirmed Type minlrockullw-jrkebyiw-betoqsa-folic 1 tablet PO DAILY 01/07/20 09/23/23 History acid 400 mcg-vit K1 20 mcg tablet (One-A-Day Women's 50 Plus) cholecalciferol (vitamin D3) 25 25 mcg PO DAILY 10/02/22 09/23/23 History mcg (1,000 unit) capsule (Vitamin D3) metformin 500 mg tablet 500 mg PO DAILY #90 ea 06/11/23 09/23/23 Rx losartan 100 1 tablet PO DAILY #90 tabs 08/02/23 09/23/23 Rx mg-hydrochlorothiazide 12.5 mg tablet omeprazole 20 mg capsule,delayed 20 mg PO DAILY 08/20/23 09/23/23 History release propranolol 10 mg tablet See Rx Instructions .Route 09/05/23 09/23/23 Rx .COMPLEX #60 tabs ferrous sulfate 325 mg (65 mg 325 mg PO DAILY #30 tabs 09/09/23 09/23/23 Rx iron) tablet Allergies Allergy/AdvReac Type Severity Reaction Status Date / Time No Known Allergies Allergy Verified 09/23/23 07:23 Vital Signs Vital Signs - 24 hr 09/23/23 07:25 Temperature 97.5 F L Pulse Rate 58 L Respiratory Rate 16 Blood Pressure 120/41 L Pulse Oximetry 100 Oxygen Delivery Room Air Exam Const: General: comfort
[2023-09-23 08:36] VITALS: BP 100/49; PULSE 57; RESP 15; O2SAT 98
[2023-09-23 08:46] VITALS: BP 99/50; PULSE 51; RESP 16; O2SAT 99
[2023-09-23 08:56] VITALS: BP 99/76; PULSE 53; RESP 16; O2SAT 100
== END 2023-09-23 09:02 | disposition home or self-care (01) ==
PROVIDERS: PCP Family Medicine; Visit Provider Internal Medicine Gastroenterology
PROC: 0DJ08ZZ Inspection of Upper Intestinal Tract, Via Natural or Artificial Opening Endoscopic (ICD-10-PCS; CPT 43235; principal; 2023-09-23 08:30)
DX: I85.00 Esophageal varices without bleeding (principal); K29.70 Gastritis, unspecified, without bleeding; K74.60 Unspecified cirrhosis of liver; I10 Essential (primary) hypertension; E11.9 Type 2 diabetes mellitus without complications; D50.9 Iron deficiency anemia, unspecified; M85.88 Other specified disorders of bone density and structure, other site; Z79.84 Long term (current) use of oral hypoglycemic drugs; Z98.890 Other specified postprocedural states; Z90.49 Acquired absence of other specified parts of digestive tract; Z86.010 Personal history of colon polyps; Z80.1 Family history of malignant neoplasm of trachea, bronchus and lung; Z82.49 Family history of ischemic heart disease and other diseases of the circulatory system
CPT/HCPCS: 43235; 82948; J2704; J7120

== ENCOUNTER 2024-01-16 09:41 | Outpatient (CLI) | payer MEDICARE, OTHER, SELFPAY ==
--- NOTE | ~2024-01-16 | US_ITS ---
EXAMINATION: US abdomen limited DATE: 01/16/2024 10:18 INDICATION: Unspecified cirrhosis of liver. TECHNIQUE: Multiple grayscale and Doppler ultrasound images of the abdomen were obtained. COMPARISON: Ultrasound 08/02/2023, CT abdomen and pelvis 07/06/2021 FINDINGS: The visualized portions of the head, body, and tail of the pancreas are normal. The liver d emonstrates coarsened echotexture and surface nodularity, consistent with cirrhosis. There is a periu mbilical portacaval shunt. There is normal flow in main portal vein. The gallbladder is absent. The c ommon duct is normal and measures 9 mm. Right kidney is normal. IMPRESSION: 1. Cirrhosis of the liver with portal venous hypertension. Reviewed, dictated and finalized at location A.
== END 2024-01-16 09:42 | disposition home or self-care (01) ==
LOC: ANHIMG 09:42
PROVIDERS: PCP Family Medicine; Visit Provider Internal Medicine Gastroenterology
DX: K74.60 Unspecified cirrhosis of liver (principal)
CPT/HCPCS: 76705

== ENCOUNTER 2024-01-23 14:26 | Outpatient (CLI) | payer MEDICARE, OTHER, SELFPAY ==
[2024-01-23 15:01] LABS: Basophils Absolute Auto 0.1 K/mm3 (0.0-0.1); Basophils Percent Auto 1.1 % (0.2-1.2); Eosinophils Absolute Auto 0.2 K/mm3 (0-0.3); Eosinophils Percent Auto 5.3 % (0-4.4); Hematocrit 40.5 % (37.0-47.0); Hemoglobin 13.9 g/dL (12.0-15.0); Immature Granulocyte Absolute 0.02 K/mm3 (0.00-0.031); Immature Granulocyte Percent A 0.4 % (0-0.5); Lymphocytes Absolute Auto 1.16 K/mm3 (0.9-3.2); Lymphocytes Percent Auto 25.7 % (18.3-44.2); Mean Corpuscular HGB Conc 34.3 g/dl (32-36); Mean Corpuscular Hemoglobin 34.5 pg (26-34); Mean Corpuscular Volume 100.5 fl (80-100); Mean Platelet Volume 9.6 fl (7.4-10.4); Monocytes Absolute Auto 0.5 K/mm3 (0.1-0.6); Monocytes Percent Auto 10.4 % (2.6-8.5); Neutrophils Absolute Auto 2.6 K/mm3 (1.3-6.7); Neutrophils Percent Auto 57.1 % (45.5-73.1); Platelet Count Result 123 k/mm3 (150-375); Red Blood Count 4.03 M/mm3 (4.2-5.4); Red Cell Distribution Width 13.7 % (11.5-14.5); White Blood Count 4.5 K/mm3 (4.5-10.0)
[2024-01-23 15:11] LABS: INR 1.2; Prothrombin Time 15.9 Seconds (11.1-14.7)
[2024-01-23 15:13] LABS: Hemoglobin A1C 5.5 % (<5.7)
[2024-01-23 15:20] LABS: Alanine Aminotransferase 44 U/L (6-35); Albumin Level 3.8 g/dL (3.5-5.1); Alkaline Phosphatase 113 U/L (38-126); Anion Gap 9 mmol/L (4-12); Aspartate Amino Transferase 64 U/L (14-36); Bilirubin,Total 1.5 mg/dL (0.2-1.3); Blood Urea Nitrogen 10 mg/dL (7-17); Calcium 9.4 mg/dL (8.4-10.2); Carbon Dioxide 25 mmol/L (22-30); Chloride 108 mmol/L (98-107); Cholesterol 170 mg/dL (0-200); Estimated Glomerular Filt Rate > 60; Glucose 87 mg/dL (65-110); HDL Direct 53 mg/dL; Potassium 3.8 mmol/L (3.4-5.0); Sodium 142 mmol/L (137-145); Triglycerides 76 mg/dL (<150)
[2024-01-23 15:31] LABS: LDL Cholesterol Direct 90 mg/dL
[2024-01-23 17:42] LABS: Vitamin D 25 Hydroxy 92.6 ng/mL
[2024-01-27 10:33] LABS: Alpha Fetoprotein Tumor Marker 4.7 ng/mL
== END 2024-01-23 14:27 | disposition home or self-care (01) ==
PROVIDERS: Nurse Practitioner Family; PCP Family Medicine; Visit Provider Nurse Practitioner Family
DX: D64.9 Anemia, unspecified (principal); E11.9 Type 2 diabetes mellitus without complications; E55.9 Vitamin D deficiency, unspecified; E78.5 Hyperlipidemia, unspecified; I10 Essential (primary) hypertension; M85.80 Other specified disorders of bone density and structure, unspecified site; Z13.29 Encounter for screening for other suspected endocrine disorder; E53.8 Deficiency of other specified B group vitamins; I85.00 Esophageal varices without bleeding; K74.60 Unspecified cirrhosis of liver; R53.83 Other fatigue
CPT/HCPCS: 36415; 80053; 80061; 82105; 82306; 82607; 83036; 84443; 85025; 85610

== ENCOUNTER 2024-03-25 11:28 | Outpatient (CLI) | payer MEDICARE, OTHER, SELFPAY ==
--- NOTE | ~2024-03-25 | MM_ITS ---
EXAMINATION: MM screening ana BI w jose l HISTORY: Screening TECHNIQUE: Craniocaudal and mediolateral oblique 3-D tomosynthesis images were obtained and synthetic 2-D images were generated. CAD analysis was submitted and interpreted. COMPARISON: Comparison to multiple prior studies sequentially, with oldest reviewed study dated 09/2017. BREAST PARENCHYMAL COMPOSITION: Not dense: There are scattered areas of fibroglandular density. FINDINGS: There is a developing low-density mass in the mid outer aspect of the right breast anterior third. The left breast is stable without evidence for malignancy. IMPRESSION: 1. Developing right breast mass, mid outer breast, anterior third. 2. Additional mammographic views and possible breast ultrasound are recommended. BI-RADS Category 0: Incomplete: Needs additional imaging evaluation. Reviewed, dictated and finalized at location B. IMPRESSION: 1. Developing right breast mass, mid outer breast, anterior third. 2. Additional mammographic views and possible breast ultrasound are recommended . BI-RADS Category 0: Incomplete: Needs additional imaging evaluation.
== END 2024-03-25 11:29 | disposition home or self-care (01) ==
LOC: MICIMG 11:29
PROVIDERS: PCP Family Medicine; Visit Provider Family Medicine
DX: Z12.31 Encounter for screening mammogram for malignant neoplasm of breast (principal); R92.8 Other abnormal and inconclusive findings on diagnostic imaging of breast
CPT/HCPCS: 77063; 77067

== ENCOUNTER 2024-04-14 09:21 | Outpatient (CLI) | payer MEDICARE, OTHER, SELFPAY ==
--- NOTE | ~2024-04-14 | MM_ITS ---
EXAMINATION: MM diagnostic ana RT w josel HISTORY: Possible right breast mass TECHNIQUE: Additional 3-D tomosynthesis images of the right breast were performed and synthetic 2-D i mages were generated. CAD analysis was submitted and interpreted. COMPARISON: 03/25/2024, 01/14/2023,09/26/2021, 02/17/2020 BREAST PARENCHYMAL COMPOSITION:Not Dense. There are scattered areas of fibroglandular density. FINDINGS: Spot compression views demonstrate no definite mass lesion or persistent distortion. No bebeto picious mesenteric or calcification. IMPRESSION: No mammographic evidence for malignancy. BI-RADS Category 1: Negative Reviewed, dictated and finalized at location . ATIONS DEVELOPER
== END 2024-04-14 09:22 | disposition home or self-care (01) ==
LOC: MICIMG 09:22
PROVIDERS: PCP Family Medicine; Visit Provider Family Medicine
DX: R92.8 Other abnormal and inconclusive findings on diagnostic imaging of breast (principal)
CPT/HCPCS: 77061; 77065; G0279

== ENCOUNTER 2024-05-25 10:20 | Outpatient (CLI) | payer MEDICARE, OTHER, SELFPAY ==
--- NOTE | 2024-05-25 | ECG_ITS ---
Test Date: 2024-05-25 11:08:48 Measurements Intervals [place] Rate: 56 P: 67 DE: 200 QRS: 18 QRSD: 94 T: 39 QT: 456 QTc: 440 Interpretive Statements SINUS BRADYCARDIA No previous ECG available for comparison Electronically Signed On 05-26-2024 15:24:04 FLIGHT DIRECTOR by Solitario Dela Cruz M.D.
[2024-05-25 11:28] LABS: Alanine Aminotransferase 44 U/L (6-35); Albumin Level 3.5 g/dL (3.5-5.1); Alkaline Phosphatase 121 U/L (38-126); Anion Gap 3 mmol/L (4-12); Aspartate Amino Transferase 63 U/L (14-36); Bilirubin,Total 1.7 mg/dL (0.2-1.3); Blood Urea Nitrogen 10 mg/dL (7-17); Calcium 8.9 mg/dL (8.4-10.2); Carbon Dioxide 27 mmol/L (22-30); Chloride 112 mmol/L (98-107); Estimated Glomerular Filt Rate > 60; Glucose 121 mg/dL (65-110); Potassium 3.8 mmol/L (3.4-5.0); Sodium 142 mmol/L (137-145)
== END 2024-05-25 10:21 | disposition home or self-care (01) ==
PROVIDERS: PCP Family Medicine; Visit Provider Podiatrist Foot & Ankle Surgery
DX: Z01.818 Encounter for other preprocedural examination (principal)
CPT/HCPCS: 36415; 80053; 93005

== ENCOUNTER 2024-07-21 13:19 | Outpatient (CLI) | payer MEDICARE, OTHER, SELFPAY ==
--- NOTE | ~2024-07-21 | CT_ITS ---
EXAMINATION: CT abdomen pelvis wo/w con DATE: 07/21/2024 13:58 INDICATION: Cirrhosis TECHNIQUE: Computed tomography (CT) of the abdomen and pelvis was performed without and with 100 mL O mnipaque-350 intravenous contrast. Automated exposure control and iterative reconstruction technique were employed. The dose-length product was 1105.74 mGy-cm. COMPARISON: None FINDINGS: Mild elevation the left hemidiaphragm with atelectasis at the lingula along the inferior margin of th e major fissure. Heart size is normal. No pericardial or pleural effusion. Cirrhotic and diffusely st eatotic liver with decreased attenuation and nodular liver surface. Portal venous hypertension with m ild hepatomegaly measuring 13.8 cm craniocaudally. Also indicative of portal venous hypertension is a markedly dilated umbilical vein with anterior abdominal wall varices extending to the bilateral hypo gastric veins. Common bile duct is mildly dilated to 9 mm in maximal diameter likely related to prior cholecystectomy. No intrahepatic biliary ductal dilation. No abnormally enhancing hepatic lesions. P ancreas, bilateral adrenal glands are normal. Small bilateral renal cysts the largest on the left makayla suring 1.5 cm. A couple nonobstructing right renal stones measuring 3 mm the upper pole and 4 mm lowe r pole. Bowels including are normal with no abnormal wall thickening or obstruction. Bladder and ante verted uterus are normal. There are prominent bilateral gonadal veins. Mild diffuse mesenteric edema. No free intraperitoneal gas or fluid. No pathologically enlarged abdominal or pelvic lymphadenopathy . Mild lumbar and lower thoracic spondylosis with bridging osteophytes at multiple levels consistent with diffuse idiopathic skeletal hyperostosis (DISH). IMPRESSION: 1. Cirrhosis secondary portal venous hypertension portosystemic collaterals and mild splenomegaly. 2. Nonobstructing right nephrolithiasis. Reviewed, dictated and finalized at location A. 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
--- OUTSIDE RECORDS SUMMARY | 2024-07-21 13:23 | XMS_ITS | Clinical Summary ---
Author Organization [facility] Address [address] [place] [address] Care Team Providers Care Spiritual Minister Name Role Phone Blanca Fernández MD Primary Care Provider [phone] Allergies No known active allergies Medications polyethylene glycol (MIRALAX) Powder Use entire 255g bottle with 64oz of clear liquid as directed for colonoscopy prep. 255 g 0 7 Active losartan potassium-hydro chlorothiazide (HYZAAR) 100-25 MG Tablet Take 1 Tab by mouth daily. Active Cholecalciferol (VITAMIN D) 2000 UNIT Tablet Take 2 Tabs by mouth daily. Active metFORMIN (GLUCOPHAGE) 500 MG Tablet Take 500 mg by mouth 2 times daily (with meals). Active HYDROcodone-alvino taminophen (NORCO) 5-325 MG TabletIndicatio ns:Chest wall contusion, left, initial encounter Take 1-2 Tablets by mouth every 4 hours as needed for Moderate or more severe pain. 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 Pulse 65 05/10/2021 11:31 PM FRICTION PAINT MACHINE TENDER Temperature 36.6 C (97.9 F) 05/10/2021 9:41 PM FRICTION PAINT MACHINE TENDER Respiratory Rate 18 05/10/2021 11:31 PM FRICTION PAINT MACHINE TENDER Oxygen Saturation 100% 05/10/2021 11:31 PM FRICTION PAINT MACHINE TENDER Inhaled Oxygen Concentration - - Weight 66.2 kg (146 lb) 05/10/2021 9:41 PM FRICTION PAINT MACHINE TENDER Height 158.8 cm (5' 2.5 ) 05/10/2021 9:41 PM FRICTION PAINT MACHINE TENDER Body Mass Index 26.28 05/10/2021 9:41 PM FRICTION PAINT MACHINE TENDER Plan of Treatment Health Maintenance Due Date Last Done Comments DEXA Bone Density 1950 Hepatitis C Virus (HCV) Screening 1950 TdaP Immunization 1950 Cologuard 1999 Immunochemical Fecal Occult Blood 1999 Pneumococcal Immunization (5 0+ years) (1 of 1 - PCV) 1999 Zoster Immunization (1 of 2) 1999 Influenza Immunization (#1) 2024 SARS-COV-2 Immunization (3 - season) 2024 06/06/2021, 04/22/2021 Respiratory Syncytial Virus (RSV) Immunization (Adult) (1 - 1-dose 75+ series) 2024 Colonoscopy 11/07/2026 11/07/2016 Colorectal Cancer Screening 11/07/2026 11/07/2016 Hepatitis B Immunization Aged Out No longer eligible based on patient's age to complete this topic Meningococcal Immunization (ACWY) Aged Out No longer eligible b ased on patient's age to complete this topic Rotavirus Immunization Aged Out No lo nger eligible based on patient's age to complete this topic Procedures Procedure Name Priority Date/Time Associated Diagnosis Comments COLONOSCOPY Routine 11/07/2016 from Last 3 Months or Most Recently Relevant to Health Maintenance Results * COLONOSCOPY (11/07/2016) Blanca Fernández MD PROCEDURE/MINOR SURGICAL OR DERABLES Final Result from Last 3 Months or Most Recently Relevant to Health Maintenance Insurance MEDICARE MEDICARE Care Teams Spiritual Minister Relationship Specialty Start Date End Date Blanca Fernández MD [address] [place] [address] [place] [address] PCP - General Signal Fitter 11/14/16
[2024-07-21 13:52] LABS: Estimated Glomerular Filt Rate > 60
== END 2024-07-21 13:20 | disposition home or self-care (01) ==
PROVIDERS: PCP Family Medicine; Visit Provider Nurse Practitioner Family
DX: K74.60 Unspecified cirrhosis of liver (principal); N20.0 Calculus of kidney; K76.6 Portal hypertension; R16.1 Splenomegaly, not elsewhere classified
CPT/HCPCS: 74178; Q9967

== ENCOUNTER 2024-07-27 08:54 | Outpatient (CLI) | payer MEDICARE, OTHER, SELFPAY ==
--- OUTSIDE RECORDS SUMMARY | 2024-07-27 09:30 | XMS_ITS | Clinical Summary ---
Author Organization [facility] Address [address] [place] [address] Care Team Providers Care Insurance Service Representative Name Role Phone Blanca Fernández MD Primary Care Provider Allergies No known active allergies Medications polyethylene [...] Comments Blood Pressure 135/84 05/10/2021 11:31 PM STOCK PATCH SAWYER Pulse 65 05/10/2021 11:31 PM STOCK PATCH SAWYER Temperature 36.6 C (97.9 F) 05/10/2021 9:41 PM STOCK PATCH SAWYER Respiratory Rate 18 05/10/2021 11:31 PM STOCK PATCH SAWYER Oxygen Saturation 100% 05/10/2021 11:31 PM STOCK PATCH SAWYER Inhaled Oxygen Concentration - - Weight 66.2 kg (146 lb) 05/10/2021 9:41 PM STOCK PATCH SAWYER Height 158.8 cm (5' 2.5 ) 05/10/2021 9:41 PM STOCK PATCH SAWYER Body Mass Index 26.28 05/10/2021 9:41 PM STOCK PATCH SAWYER Plan of Treatment Health Maintenance Due Date [...] Health Maintenance Insurance MEDICARE MEDICARE Care Teams Insurance Service Representative Relationship Specialty Start Date End Date Blanca Fernández MD [address] [place] [address] [place] [address] PCP - General Welfare Director 11/14/16
[2024-07-27 12:15] LABS: Alanine Aminotransferase 38 U/L (6-35); Albumin Level 3.5 g/dL (3.5-5.1); Alkaline Phosphatase 141 U/L (38-126); Anion Gap 10 mmol/L (4-12); Aspartate Amino Transferase 51 U/L (14-36); Bilirubin,Total 1.6 mg/dL (0.2-1.3); Blood Urea Nitrogen 9 mg/dL (7-17); Calcium 9.2 mg/dL (8.4-10.2); Carbon Dioxide 25 mmol/L (22-30); Chloride 109 mmol/L (98-107); Cholesterol 173 mg/dL (0-200); Estimated Glomerular Filt Rate > 60; Glucose 108 mg/dL (65-110); HDL Direct 56 mg/dL; Potassium 4.1 mmol/L (3.4-5.0); Sodium 144 mmol/L (137-145); Triglycerides 88 mg/dL (<150)
[2024-07-27 12:19] LABS: INR 1.2; Prothrombin Time 15.9 Seconds (11.1-14.7)
[2024-07-27 12:26] LABS: LDL Cholesterol Direct 82 mg/dL
[2024-07-27 12:31] LABS: Basophils Percent Auto 0.7 % (0.2-1.2); Eosinophils Absolute Auto 0.3 K/mm3 (0-0.3); Eosinophils Percent Auto 6.6 % (0-4.4); Hematocrit 39.7 % (37.0-47.0); Hemoglobin 13.2 g/dL (12.0-15.0); Immature Granulocyte Absolute 0.01 K/mm3 (0.00-0.031); Immature Granulocyte Percent A 0.2 % (0-0.5); Lymphocytes Absolute Auto 0.81 K/mm3 (0.9-3.2); Lymphocytes Percent Auto 19.9 % (18.3-44.2); Mean Corpuscular HGB Conc 33.2 g/dl (32-36); Mean Corpuscular Hemoglobin 34.1 pg (26-34); Mean Corpuscular Volume 102.6 fl (80-100); Monocytes Absolute Auto 0.4 K/mm3 (0.1-0.6); Monocytes Percent Auto 10.1 % (2.6-8.5); Neutrophils Absolute Auto 2.5 K/mm3 (1.3-6.7); Neutrophils Percent Auto 62.5 % (45.5-73.1); Platelet Count Result 137 k/mm3 (150-375); Red Blood Count 3.87 M/mm3 (4.2-5.4); Red Cell Distribution Width 14.2 % (11.5-14.5); White Blood Count 4.1 K/mm3 (4.5-10.0)
[2024-07-27 12:48] LABS: MALB Creatinine Ratio < 14.6 mg/g (0-30); Microalbumin Urine Random < 6.0 mg/L (0-16.7)
[2024-07-27 13:13] LABS: Vitamin D 25 Hydroxy 91.1 ng/mL
[2024-07-27 15:23] LABS: Hemoglobin A1C 5.8 % (<5.7)
== END 2024-07-27 08:55 | disposition home or self-care (01) ==
PROVIDERS: Nurse Practitioner Family; PCP Family Medicine; Visit Provider Nurse Practitioner Family
DX: E11.9 Type 2 diabetes mellitus without complications (principal); I10 Essential (primary) hypertension; E55.9 Vitamin D deficiency, unspecified; K74.60 Unspecified cirrhosis of liver
CPT/HCPCS: 36415; 80053; 80061; 82043; 82306; 83036; 84443; 85025; 85610

== ENCOUNTER 2024-10-05 01:31 | Day surgery (SDC) | payer MEDICARE, OTHER, SELFPAY ==
[2024-09-23 09:07] VITALS: BMI 27.1
--- OUTSIDE RECORDS SUMMARY | 2024-10-05 01:34 | XMS_ITS | Clinical Summary ---
Author Organization [facility] Address [address] [place] [address] Care Team Providers Care Yeast Stacker Name Role Phone Unavailable Primary Care Provider Unavailabl e Source Comments [facility] Affiliates and Associated Physician Practices is amultiple site organization consisting of ambulatory clinics and hospital sitesin [place], [place], [place] and [place]. This disclosure is being madepursuant to the Care Everywhere program and may not contain all information available regarding this patient. Last updated 18.[facility] VISup Social History Tobacco Use Types Packs/Day Years Used Date Smoking Tobacco: Never Assessed Comments Unknown Sex and Gender Information Value Date Recorded Sex Assigned at Not on file Legal Sex Female 9:02 AM CDT Gender Identity Not on file Sexual Orientation Not on file Plan of Treatment Upcoming Encounters Date Type Department Care Team (Late st Contact Info) Description 11/04/2024 11:00 AM CDT Office Visit [facility] - GI [address] [place] [id number] Health Maintenance Due Date Last Done Comments BONE DENSITY TESTING 1950 COLOGUARD (AGES 45-75) - COL ON CA SCREENING 1950 COLON MONITORING 1950 COLONOSCOPY - COLON CA SCREENING 1949 CT COLONOGRAPHY - COLON CA SCREENING 1950 Colorectal Cancer Screening 1950 FIT - COLON CA SCREENING 1950 FLEX SIG - COLON CA SCREENING 1950 LIPID TESTING 1950 MAMMOGRAM 1950 MEDICARE AWV 12 MONTHS 1950 HEPATITIS C SCREENING 04/01/1967 DTAP/TDAP/TD VACCINES (1 - Tdap) 1968 PNEUMOCOCCAL VACCINE 50+ (1 of 1 - PCV) 1999 ZOSTER VACCINE (1 of 2) 1999 COVID-19 VACCINE ( - 2023-2 5 season) 2024 Respiratory Syncytial Virus (RSV) Vaccine Pt: or over 60 yrs (1 - 1-dose 75+ series) 2024 DEPRESSION SCREENING 06/03/2024 INFLUENZA VACCINE (Season Ended) 2025 HEPATITIS B VACCINE Aged Out No longe r eligible based on patient's age to complete this topic HIB VACCINE Aged Out No longer eligi ble based on patient's age to complete this topic HPV VACCINE Aged Out No longer eligi ble based on patient's age to complete this topic MENINGOCOCCAL (Group B) VACC INE SHARED DECISION-MAKING Aged Out No longer eligibl e based on patient's age to complete this topic MENINGOCOCCAL GROUPS A/C/Y/W VACCINE Aged Out No longer eligible b ased on patient's age to complete this topic Insurance MEDICARE [facility]
--- OUTSIDE RECORDS SUMMARY | 2024-10-05 01:34 | XMS_ITS | Clinical Summary ---
Author Organization [facility] Address [address] [place] [address] Care Team Providers Care Summer Law Clerk Name Role Phone Blanca Fernández MD Primary [...] Comments Blood Pressure 135/84 05/10/2021 11:31 PM CABIN FURNISHINGS INSTALLER Pulse 65 05/10/2021 11:31 PM CABIN FURNISHINGS INSTALLER Temperature 36.6 C (97.9 F) 05/10/2021 9:41 PM CABIN FURNISHINGS INSTALLER Respiratory Rate 18 05/10/2021 11:31 PM CABIN FURNISHINGS INSTALLER Oxygen Saturation 100% 05/10/2021 11:31 PM CABIN FURNISHINGS INSTALLER Inhaled Oxygen Concentration - - Weight 66.2 kg (146 lb) 05/10/2021 9:41 PM CABIN FURNISHINGS INSTALLER Height 158.8 cm (5' 2.5 ) 05/10/2021 9:41 PM CABIN FURNISHINGS INSTALLER Body Mass Index 26.28 05/10/2021 9:41 PM CABIN FURNISHINGS INSTALLER Plan of Treatment Health Maintenance Due Date [...] to Health Maintenance Results * COLONOSCOPY (11/07/2016) Blacna Fernández MD PROCEDURE/MINOR SURGICAL OR DERABLES Final Result from Last 3 Months or Most Recently Relevant to Health Maintenance Insurance MEDICARE MEDICARE Care Teams Summer Law Clerk Relationship Specialty Start Date End Date Blanca Fernández MD [address] [place] [address] [place] [address] PCP - General Ignition Specialist 11/14/16
[2024-10-05 11:18] VITALS: BP 126/65; PULSE 59; RESP 18; TEMP 36.2; O2SAT 100
--- NOTE | 2024-10-05 11:35 | P.PNAN_ITS ---
Anes - Initial Pre Proc Eval Procedure: Operation Date: 10/05/24 12:30 Proposed Procedures p Esophagogastroduodenoscopy - Osmar Vyas MD Date/Time: 10/05/24 11:35 Surgeon: Osmar Vyas MD Pre Op Diagnosis: Gastritis, unspecified, without bleeding Patient Data Age: 74 Gender: F Height: 1.6 m Weight: 71.5 kg Last Vital Signs Temp 97.2 F L 10/05/24 11:18 Pulse 59 L 10/05/24 11:18 Resp 18 10/05/24 11:18 BP 126/65 10/05/24 11:18 Pulse Ox 100 10/05/24 11:18 O2 Del Method Room Air 10/05/24 11:18 Allergies Allergy/AdvReac Type Severity Reaction Status Date / Time No Known Allergies Allergy Verified 10/05/24 11:17 Home Medications ?Medication ?Instructions ?Recorded ?Confirmed ?Type jfrlwydepyql-zdpqwkcc-qzneesk-folic 1 tablet PO DAILY 01/07/20 09/23/24 History acid 400 mcg-vit K1 20 mcg tablet (One-A-Day Women's 50 Plus) cholecalciferol (vitamin D3) 25 25 mcg PO DAILY 10/02/22 09/23/24 History mcg (1,000 unit) capsule (Vitamin D3) fexofenadine 60 mg tablet (Miladys 60 mg PO Q12H 01/23/24 09/23/24 History Allergy) losartan 100 1 tablet PO DAILY #90 tabs 06/01/24 09/23/24 Rx mg-hydrochlorothiazide 12.5 mg tablet metformin 500 mg tablet 500 mg PO DAILY #90 ea 06/01/24 09/23/24 Rx hydrocortisone acetate 25 mg 25 mg RECTAL BID PRN hemorrhoids 07/27/24 09/23/24 Rx rectal suppository (Anusol-HC) #12 ea omeprazole 20 mg capsule,delayed 20 mg PO DAILY 07/27/24 09/23/24 History release hydrocortisone 2.5 % topical cream 1 applic RECTAL DAILY PRN 07/28/24 09/23/24 Rx with perineal applicator hemorrhoids #30 grams ferrous sulfate 325 mg (65 mg 325 mg PO DAILY #30 tabs 08/28/24 09/23/24 Rx iron) tablet propranolol 10 mg tablet See Rx Instructions .Route 09/02/24 10/05/24 Rx .COMPLEX #60 tabs Patient hx anesthesia problems: other (Pt reports years ago w EGD she was not sedated deeply prior to procedure start. ) Family hx anesthesia problems: none Results Review: All pre-operative results and documents have been reviewed as part of the pre- operative evaluation. [facility] Past Medical History Medical History Hyperbilirubinemia Thrombocytopenia Non-alcoholic cirrhosis Dizziness GI (gastrointestinal bleed) Iron deficiency anemia Osteopenia History of colon polyps Radial styloid fracture left radial styloid spring 2020 Metacarpal bone fracture Left fourth and fifth metacarpal bases spring 2020 Type 2 diabetes mellitus without complications (~10/2020) Hemoglobin A1C 5.6 in 07/2020 Essential (primary) hypertension Surgical History Surgical History History of esophagogastroduodenoscopy (EGD) History of open reduction and internal fixation (ORIF) procedure right ankle- 2007 left wrist History of cholecystectomy History of cataract extraction Family History Family History Father Acute myocardial infarction Mother Family history of chronic obstructive pulmonary disease Other Diabetes mellitus Family history of hypercholesterolemia Family history of throat cancer Family history of thyroid disease Social History Social History Social History: the patient lives home alone and is . She had 3 children and her son recently from [employer]. Patient does not drink alcohol and is lifelong nonsmoker. She does not use any marijuana or illicit drugs. She does not have a durable power traffic law attorney for healthcare. 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 Code status full code Smoking status: Never smoker Alcohol intake: never Substance use: never Substance use type: does not use Lack of Transportation: No Lack of Food: Never True Current Housing: I Have Housing Concerned About Future Housing: No Difficulty Paying Gas/Electric Bills: No Difficulty Paying for Meds: No Currently Unemployed: No Education: Associate Degree Difficulty w/ Childcare or Family Care: No Living arrangements: alone Occupation/Education: occupation Gender identity (if verbalized by the patient): Female Spiritual care concerns: No Agree to blood products: Yes Anes - Eval Final PreProcedure Day of Procedure 10/05/24 11:35 Patient weight: overweight Lungs: normal air movement Airway: Mallampati scale class II Neurological: alert and oriented Last oral intake: >/= 8 hours ASA classification: III Emergent: no Anesthetic plan: proceed Anesthesia type and monitoring: general GIVS and standard monitoring Results Review: All pre-operative results and documents have been reviewed as part of the pre- operative evaluation. HTN, DM, nonalcoholic cirrhosis, now for EGD. Informed Consent: The patient's anesthetic plan and its attendant risks and benefits were discussed with the patient/family/POA. Questions were solicited and answers provided to the satisfaction of the patient/family/POA.
[2024-10-05 11:54] LABS: Glucose Point of Care 103 mg/dl (65-105)
--- NOTE | 2024-10-05 12:45 | P.HP_ITS ---
History of Present Illness History of Present Illness Consent: Risks, benefits, and alternatives have been discussed and questions answered. Patient agrees to proceed with procedure. Chief complaint: Gastritis, unspecified, without bleeding Narrative: Aimee Prieto is a 74 year old female with cirrhosis that has required esophageal varices banding, last egd 2023 small size. On propranolol, no overt gib Review of Systems Review of Systems: All systems reviewed & are unremarkable except as noted in HPI and below PMFSH Past Medical History Medical History Hyperbilirubinemia Thrombocytopenia Non-alcoholic cirrhosis Dizziness GI (gastrointestinal bleed) Iron deficiency anemia Osteopenia History of colon polyps Radial styloid fracture left radial styloid spring 2020 Metacarpal bone fracture Left fourth and fifth metacarpal bases spring 2020 Type 2 diabetes mellitus without complications (~10/2020) Hemoglobin A1C 5.6 in 07/2020 Essential (primary) hypertension Surgical History Surgical History History of esophagogastroduodenoscopy (EGD) History of open reduction and internal fixation (ORIF) procedure right ankle- 2007 left wrist History of cholecystectomy History of cataract extraction Family History Family History Father Acute myocardial infarction Mother Family history of chronic obstructive pulmonary disease Other Diabetes mellitus Family history of hypercholesterolemia Family history of throat cancer Family history of thyroid disease Social History Social History Social History: the patient lives home alone and is . She had 3 children and her son recently from [employer]. Patient does not drink alcohol and is lifelong nonsmoker. She does not use any marijuana or illicit drugs. She does not have a durable power business attorney for healthcare. 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 Code status full code Smoking status: Never smoker Alcohol intake: never Substance use: never Substance use type: does not use Lack of Transportation: No Lack of Food: Never True Current Housing: I Have Housing Concerned About Future Housing: No Difficulty Paying Gas/Electric Bills: No Difficulty Paying for Meds: No Currently Unemployed: No Education: Associate Degree Difficulty w/ Childcare or Family Care: No Living arrangements: alone Occupation/Education: occupation Gender identity (if verbalized by the patient): Female Spiritual care concerns: No Agree to blood products: Yes Meds Home Medications and Allergies Home Medications ?Medication ?Instructions ?Recorded ?Confirmed ?Type fnxxedljdhey-nhrpzcih-lnhtvgx-folic 1 tablet PO DAILY 01/07/20 09/23/24 History acid 400 mcg-vit K1 20 mcg tablet (One-A-Day Women's 50 Plus) cholecalciferol (vitamin D3) 25 25 mcg PO DAILY 10/02/22 09/23/24 History mcg (1,000 unit) capsule (Vitamin D3) fexofenadine 60 mg tablet (Miladys 60 mg PO Q12H 01/23/24 09/23/24 History Allergy) losartan 100 1 tablet PO DAILY #90 tabs 06/01/24 09/23/24 Rx mg-hydrochlorothiazide 12.5 mg tablet metformin 500 mg tablet 500 mg PO DAILY #90 ea 06/01/24 09/23/24 Rx hydrocortisone acetate 25 mg 25 mg RECTAL BID PRN hemorrhoids 07/27/24 09/23/24 Rx rectal suppository (Anusol-HC) #12 ea omeprazole 20 mg capsule,delayed 20 mg PO DAILY 07/27/24 09/23/24 History release hydrocortisone 2.5 % topical cream 1 applic RECTAL DAILY PRN 07/28/24 09/23/24 Rx with perineal applicator hemorrhoids #30 grams ferrous sulfate 325 mg (65 mg 325 mg PO DAILY #30 tabs 08/28/24 09/23/24 Rx iron) tablet propranolol 10 mg tablet See Rx Instructions .Route 09/02/24 10/05/24 Rx .COMPLEX #60 tabs Allergies Allergy/AdvReac Type Severity Reaction Status Date / Time No Known Allergies Allergy Verified 10/05/24 11:17 Vital Signs Vital Signs - 24 hr 10/05/24 11:18 Temperature 97.2 F L Pulse Rate 59 L Respiratory Rate 18 Blood Pressure 126/65 Pulse Oximetry 100 Oxygen Delivery Room Air Exam Const: General: comfortable and no acute distress HENMT: Face/Nose/Sinus: Normal nares present Eyes: General: appearance normal, both eyes and all related structures Neck: Neck: no JVD Resp: Auscultation: clear to auscultation bilaterally Cardio: Rate: regular rate Rhythm: regular rhythm GI: Inspection: non-distended GI Palp: Yes Soft to palpation Skin: General skin exam: normal color Neuro: General: gait normal Speech: normal speech Extrem: General: normal to inspection Psych: Mental Status: mental status grossly normal Assessment and Plan Assessment and plan (1) Non-alcoholic cirrhosis: Code(s): K74.60 - Unspecified cirrhosis of liver Status: Acute Assessment and Plan: egd (2) Esophageal varices: Qualifiers: Esophageal varices type: unspecified type Esophageal varices bleeding: without bleeding Qualified Code(s): I85.00 - Esophageal varices without bleeding Code(s): I85.00 - Esophageal varices without bleeding Status: Acute
[2024-10-05] MEDS: LACTATED RINGERS 1,000 ML 150 ML IV CONT (12:51)
[2024-10-05 12:56] VITALS: BP 86/39; PULSE 58; RESP 16; O2SAT 96
[2024-10-05 13:06] VITALS: BP 81/42; PULSE 58; RESP 19; O2SAT 99
[2024-10-05 13:16] VITALS: BP 116/57; PULSE 58; RESP 19; O2SAT 100
== END 2024-10-05 13:45 | disposition home or self-care (01) ==
PROVIDERS: PCP Family Medicine; Visit Provider Internal Medicine Gastroenterology
PROC: 0DJ08ZZ Inspection of Upper Intestinal Tract, Via Natural or Artificial Opening Endoscopic (ICD-10-PCS; CPT 43251; principal; 2024-10-05 12:30)
DX: I85.00 Esophageal varices without bleeding (principal); K31.7 Polyp of stomach and duodenum; K29.70 Gastritis, unspecified, without bleeding; K74.60 Unspecified cirrhosis of liver; E11.9 Type 2 diabetes mellitus without complications; I10 Essential (primary) hypertension; D69.6 Thrombocytopenia, unspecified; D50.9 Iron deficiency anemia, unspecified; E80.6 Other disorders of bilirubin metabolism; M85.88 Other specified disorders of bone density and structure, other site; Z79.84 Long term (current) use of oral hypoglycemic drugs; Z98.890 Other specified postprocedural states; Z90.49 Acquired absence of other specified parts of digestive tract; Z86.0100 Personal history of colon polyps, unspecified; Z80.1 Family history of malignant neoplasm of trachea, bronchus and lung; Z82.49 Family history of ischemic heart disease and other diseases of the circulatory system
CPT/HCPCS: 43251; 82948; 88305; J2704; J7120

== ENCOUNTER 2024-12-22 15:16 | Outpatient (CLI) | payer MEDICARE, OTHER, SELFPAY ==
--- NOTE | ~2024-12-22 | DEXA_ITS ---
Bone Density Report Name: SAM NGUYEN Age: 74 Sex: Female Ethnicity: White Date of : 1950 Indication: postmenopausal; screening for osteoporosis; prior fracture; Referring Provider: PHYLLIS, DIANE Perez Study: Bone densitometry was performed. Exam Date: December 22, 2024 Accession number: [id number] Bone Density: Region BMD T-score Z-score Classification AP Spine(L1-L4) 1.018 -0.3 2.2 Normal Femoral Neck (Left) 0.650 -1.8 0.3 Osteopenia Total Hip (Left) 0.749 -1.6 0.2 Osteopenia Femoral Neck (Right) 0.711 -1.2 0.9 Osteopenia Total Hip (Right) 0.774 -1.4 0.4 Osteopenia Total Hip Mean 0.761 -1.5 0.3 Osteopenia World Health Organization criteria for BMD impression classify patients as: Normal (T-score at or above -1.0), Osteopenia (T-score between -1.0 and -2.5), or Osteoporosis (T-score at or below -2.5). 10-year Fracture Risk(1): Major Osteoporotic Fracture 19% Hip Fracture 4.0% Reported Risk Factors: [place] (), Neck BMD=0.650, BMI=26.0, previous fracture (1) FRAX(R) Version 3.08. Fracture probability calculated for an untreated patient. Fracture probability may be lower if the patient has received treatment. Clinical Information Provided by Patient: Has had a low trauma fracture Has used the following medications: Vitamin D Patient maximum height was 63 Menopause Age: 44 No regular weight bearing exercise Drinks caffeinated beverages Onset of menses at age 11 Number of children 3 Impression: The patient has low bone mass, based on the Left Femoral Neck T-score. The patient has an estimated ten-year risk of hip fracture of 4% and an estimated ten-year risk of major fracture of 19%, based on the WHO FRAX algorithm. The patient has risk factors, including: previous fracture. Discussion: BONE DENSITY IS LOW AT ONE OR MORE SKELETAL SITES. THE PATIENT'S BMD AND CLINICAL RISK FACTORS CONTRIBUTE TO THIS PATIENT'S INCREASED RISK OF FRACTURE. This patient's lowest T-score is low at one or more skeletal sites. It meets the World Health Organization's (WHO) criteria for ?low bone mass? (T-score between -1.0 and -2.5). The patient's 10-year risk of hip fracture as calculated by FRAX exceeds the threshold where pharmacological therapy is recommended by the National Osteoporosis Foundation (NOF). However, all treatment decisions require clinical judgment and consideration of individual patient factors, including patient preferences, comorbidities, previous drug use, risk factors not captured in the FRAX model (e.g., frailty, falls, vitamin D deficiency, increased bone turnover, interval significant decline in bone density) and possible under or overestimation of fracture risk by FRAX. The patient should follow a healthful lifestyle (good nutrition with adequate calcium and vitamin D, and appropriate weight-bearing exercise). Follow-Up: Consider a repeat BMD and Vertebral Fracture Assessment (VFA) exam in 2 years or sooner if medically necessary, to reassess this patient's status. Reported by: SEBASTIEN on 12/22/2024 3:58:00 PM. Reviewed, dictated and finalized at location A.
--- OUTSIDE RECORDS SUMMARY | 2024-12-22 15:19 | XMS_ITS | Clinical Summary ---
Author Organization [facility] Address [address] [place] [address] Care Team Providers Care Dispensing And Measuring Optician Name Role Phone Blanca Fernández MD Primary [...] Comments Blood Pressure 135/84 05/10/2021 11:31 PM ORDER ANALYST Pulse 65 05/10/2021 11:31 PM ORDER ANALYST Temperature 36.6 C (97.9 F) 05/10/2021 9:41 PM ORDER ANALYST Respiratory Rate 18 05/10/2021 11:31 PM ORDER ANALYST Oxygen Saturation 100% 05/10/2021 11:31 PM ORDER ANALYST Inhaled Oxygen Concentration - - Weight 66.2 kg (146 lb) 05/10/2021 9:41 PM ORDER ANALYST Height 158.8 cm (5' 2.5) 05/10/2021 9:41 PM ORDER ANALYST Body Mass Index 26.28 05/10/2021 9:41 PM ORDER ANALYST Plan of Treatment Health Maintenance Due Date Last Done Comments Hepatitis C Virus (HCV) Screening 1950 TdaP Immunization 1950 Cologuard 1994 Immunochemical Fecal Occult Blood 1994 Pneumococcal Immunization (5 0+ years) (1 of 1 - PCV) 1999 Zoster Immunization (1 of 2) 1999 SARS-COV-2 Immunization (3 - season) 2024 06/06/2021, 04/22/2021 Respiratory Syncytial Virus (RSV) Immunization (Adult) (1 - 1-dose 75+ series) 2024 Influenza Immunization (#1) 2025 Colonoscopy 11/07/2026 11/07/2016 Colorectal Cancer Screening 11/07/2026 Hepatitis B Immunization Aged Out No longer eligible based on patient's age to complete this topic Human Papillomavirus (HPV) Immunization Aged Out No longer eligible b ased [...] Health Maintenance Insurance MEDICARE MEDICARE Care Teams Dispensing And Measuring Optician Relationship Specialty Start Date End Date Blanca Fernández MD [address] [place] [address] [place] [address] PCP - General Contract Technical Writer 11/14/16
--- OUTSIDE RECORDS SUMMARY | 2024-12-22 15:19 | XMS_ITS | Clinical Summary ---
Author Organization [facility] Address [address] [place] [address] Care Team Providers Care Front End Developer Designer Name Role Phone Provider, No Pcp Primary Care Provider Unavailab le Source Comments [facility],non-owned Affiliates and Associated Physician Practices is amultiple site organization consisting of ambulatory clinics and hospital sitesin [place], [place], [place] and [place]. This disclosure is being madepursuant to the Care Everywhere program and may not contain all information available regarding this patient. Last updated 02/21/18.[facility] Medications * Be aware that medications may not be up to date on this document. Alwaysverify current medications with the patient. Cholecalciferol 50 MCG (1999 UT) Take 2 (two) tablets by mouth once daily Active losartan-hydroC HLOROthiazide (Hyzaar) 100-25 MG tablet Take 1 (one) tablet by mouth once daily Active metFORMIN (Glucophage) 500 MG tablet Take 1 (one) tablet by mouth 2 times daily with morning and evening meal Active ferrous sulfate 325 (65 FE) MG tablet Take 1 (one) tablet by mouth once daily Active omeprazole (PriLOSEC) 20 MG capsule Take 1 (one) capsule by mouth daily before breakfast Active propranolol (Inderal) 10 MG tablet Take 1 (one) tablet by mouth 2 times daily Active multivitamin daily tablet Take 1 (one) tablet by mouth daily with food Active vitamin D3 (Cholecalcifero l) 25 MCG (1000 UNITS) tablet Take 4 (four) tablets by mouth once daily Active Encounters Date Type Department Care Team Description 11/04/2024 11:00 AM CDT Office Visit [facility] - GI [address] [place] [phone] Salvador Schulte MD Metabolic dysfunction-associate d steatotic liver disease (MASLD) (Primary Dx); Compensated liver disease (HCC); Encounter for screening for other viral diseases 11/04/2024 Travel from Last 3 Months Social History Tobacco Use Types Packs/Day Years Used Date Smoking Tobacco: Never Assessed Comments Unknown Sex and Gender Information Value Date Recorded Sex Assigned at Not on file Legal Sex Female 9:02 AM CDT Gender Identity Not on file Sexual Orientation Not on file Last Filed Vital Signs Vital Sign Reading Time Taken Comments Blood Pressure 128/64 11/04/2024 10:49 AM CDT Pulse 59 11/04/2024 10:49 AM CDT Temperature - - Respiratory Rate - - Oxygen Saturation 97% 11/04/2024 10:49 AM CDT Inhaled Oxygen Concentration - - Weight 70 kg (154 lb 6.4 oz) 11/04/2024 10:49 AM CDT Height 160 cm (5' 3) 11/04/2024 10:49 AM CDT Body Mass Index 27.35 11/04/2024 10:49 AM CDT Plan of Treatment Upcoming Encounters Date Type Department Care Team (Late st Contact Info) Description 08/30/2025 11:30 AM CDT Office Visit [facility] - GI [address] [place] [phone] Salvador Schulte MD [address] [place] [address] [place] [address] Health Maintenance Due Date Last Done Comments [...] Tdap) 1968 PNEUMOCOCCAL VACCINE 50+ (1 of 2 - PCV) 1968 ZOSTER VACCINE (1 of 2) 1999 HEPATITIS B VACCINE (1 of 3 - Risk 3-dose series) 2009 COVID-19 VACCINE (1 - 2023-2 5 season) 2024 Respiratory Syncytial Virus (RSV) Vaccine Pt: or over 60 yrs (1 - 1-dose 75+ series) 2024 DEPRESSION SCREENING 06/03/2024 INFLUENZA VACCINE (#1) 2025 HIB VACCINE Aged Out No longer eligi [...] on patient's age to complete this topic Goals Goal Patient Goal Type Associated Problems Recent Progress Patient-Stated? Author Medication Management General On track( 025 11:35 AM CDT) No Belle Smith, RN Note: Expected end date: ongoing Interventions: Take all medications as prescribed Let your doctor know right away about any changes in your medications Make sure to request a refill of your medication at least one week prior to your last dose Insurance MEDICARE [facility] MEDICARE SELF PAY NO INSURANCE Member Subscriber Plan / Payer (Ef fective for All Dates) Name:Sam Nguyen Member ID:Not on file Relation to Subscriber:Not on file Name:SAM NGUYEN Subscriber ID:Not on file (Home) Address: [address] [place] [address] Payer ID:Not on file Group ID:Not on file Type:Self Pay Address: [facility] Care Teams Front End Developer Designer Relationship Specialty Start Date End Date Provider, No Pcp PCP - General 11/02/24
== END 2024-12-22 15:17 | disposition home or self-care (01) ==
LOC: ANHIMG 15:17
PROVIDERS: PCP Family Medicine; Visit Provider Nurse Practitioner Family
DX: Z78.0 Asymptomatic menopausal state (principal); E55.9 Vitamin D deficiency, unspecified; E11.9 Type 2 diabetes mellitus without complications; D64.9 Anemia, unspecified; I10 Essential (primary) hypertension; M85.80 Other specified disorders of bone density and structure, unspecified site; M85.852 Other specified disorders of bone density and structure, left thigh; M85.851 Other specified disorders of bone density and structure, right thigh
CPT/HCPCS: 77080

== ENCOUNTER 2025-01-04 10:11 | Outpatient (CLI) | payer MEDICARE, SELFPAY ==
--- OUTSIDE RECORDS SUMMARY | 2025-01-04 10:38 | XMS_ITS | Clinical Summary ---
Author Organization [facility] Address [address] [place] [address] Care Team Providers Care Metal Dresser Name Role Phone Blanca Fernández MD Primary Care Provider [phone] Allergies No known active allergies Medications polyethylene [...] Comments Blood Pressure 135/84 05/10/2021 11:31 PM SLABBER LIGHT Pulse 65 05/10/2021 11:31 PM SLABBER LIGHT Temperature 36.6 C (97.9 F) 05/10/2021 9:41 PM SLABBER LIGHT Respiratory Rate 18 05/10/2021 11:31 PM SLABBER LIGHT Oxygen Saturation 100% 05/10/2021 11:31 PM SLABBER LIGHT Inhaled Oxygen Concentration - - Weight 66.2 kg (146 lb) 05/10/2021 9:41 PM SLABBER LIGHT Height 158.8 cm (5' 2.5) 05/10/2021 9:41 PM SLABBER LIGHT Body Mass Index 26.28 05/10/2021 9:41 PM SLABBER LIGHT Plan of Treatment Health Maintenance Due Date [...] Health Maintenance Insurance MEDICARE MEDICARE Care Teams Metal Dresser Relationship Specialty Start Date End Date Blanca Fernández MD [address] [place] [address] [place] [address] PCP - General Workers' Compensation Claims Examiner 11/14/16
--- OUTSIDE RECORDS SUMMARY | 2025-01-04 10:38 | XMS_ITS | Clinical Summary ---
Author Organization [facility] [employer] [facility] Address [address] [place] [address] Care Team Providers Care Edge Dyer Name Role Phone Provider, No Pcp Primary Care Provider Unavailab le Source Comments [facility],non-owned Affiliates and Associated Physician Practices is amultiple site organization consisting of ambulatory clinics and hospital sitesin [place], [place], [place] and [place]. This disclosure is being madepursuant to the Care Everywhere program and may not contain all information available regarding this patient. Last updated 18.[employer] [facility] [facility] Medications * Be aware that medications may [...] Description 11/04/2024 11:00 AM CDT Office Visit [facility] [place] [address] [place] [phone] Salvador Schulte MD Metabolic dysfunction-associate d steatotic [...] Description 08/30/2025 11:30 AM CDT Office Visit [facility] [place] [address] [place] [phone] Salvador Schulte MD [address] [place] [address] [place] [address] Health Maintenance Due Date Last Done Comments [...] prior to your last dose Insurance MEDICARE [facility] [place] [place] Address: [facility] [address] [place] [address] MEDICARE SELF PAY NO INSURANCE Member Subscriber Plan / Payer (Ef fective for All Dates) Name:Sam Nguyen Member ID:Not on file Relation to Subscriber:Not on file Name:SAM NGUYEN Subscriber ID:Not on file (Home) Address: [address] [place] [address] Payer ID:Not on file Group ID:Not on file Type:Self Pay Address: [facility] Care Teams Edge Dyer Relationship Specialty Start Date End Date Provider, No Pcp PCP - General 11/02/24
[2025-01-04 11:22] LABS: Hematocrit 35.2 % (37.0-47.0); Hemoglobin 11.6 g/dL (12.0-15.0); Immature Platelet Fraction Pct 2.2 % (0.9-11.2); Mean Corpuscular HGB Conc 33.0 g/dl (32-36); Mean Corpuscular Hemoglobin 33.5 pg (26-34); Mean Corpuscular Volume 101.7 fl (80-100); Platelet Count Result 126 k/mm3 (150-375); Red Blood Count 3.46 M/mm3 (4.2-5.4); White Blood Count 4.0 K/mm3 (4.5-10.0)
[2025-01-04 11:37] LABS: INR 1.3; Prothrombin Time 16.4 Seconds (11.1-14.7)
[2025-01-04 11:47] LABS: Alanine Aminotransferase 40 U/L (6-35); Albumin Level 3.6 g/dL (3.5-5.1); Alkaline Phosphatase 119 U/L (38-126); Anion Gap 3 mmol/L (4-12); Aspartate Amino Transferase 57 U/L (14-36); Bilirubin,Total 1.4 mg/dL (0.2-1.3); Blood Urea Nitrogen 12 mg/dL (7-17); Calcium 9.7 mg/dL (8.4-10.2); Carbon Dioxide 27 mmol/L (22-30); Chloride 106 mmol/L (98-107); Estimated Glomerular Filt Rate > 60; Glucose 107 mg/dL (65-110); Iron 93 ug/dL (37-170); Potassium 3.7 mmol/L (3.4-5.0); Sodium 136 mmol/L (137-145); Total Protein 7.2 g/dL (6.3-8.2)
[2025-01-04 11:57] LABS: Percent Iron Saturation 36 % (20-50)
[2025-01-04 12:23] LABS: HAV RESULT Negative (Negative)
[2025-01-04 12:28] LABS: Ferritin 245.00 ng/mL (11.1-264)
[2025-01-05 06:07] LABS: Hep B Core Ab, Total Negative (Negative)
[2025-01-05 07:09] LABS: Immunoglobulin A, Qn 1172 mg/dL (64-422); Immunoglobulin G, Qn 1163 mg/dL (586-1602); Immunoglobulin M, Qn 57 mg/dL (26-217)
[2025-01-06 14:08] LABS: ANA by IFA Rfx Titer/Pattern Negative (.)
== END 2025-01-04 10:12 | disposition home or self-care (01) ==
PROVIDERS: PCP Family Medicine; Referring Provider Internal Medicine Gastroenterology; Visit Provider Nurse Practitioner Family
DX: K74.69 Other cirrhosis of liver (principal); K76.0 Fatty (change of) liver, not elsewhere classified; Z11.59 Encounter for screening for other viral diseases
CPT/HCPCS: 36415; 80053; 82103; 82105; 82248; 82390; 82728; 82784; 83540; 83550; 85027; 85055; 85610; 86015; 86038; 86381; 86704; 86709

== ENCOUNTER 2025-01-08 11:00 | Outpatient (CLI) | payer MEDICARE, SELFPAY ==
--- OUTSIDE RECORDS SUMMARY | 2025-01-08 11:11 | XMS_ITS | Clinical Summary ---
Author Organization [facility] Address [address] [place] [address] Care Team Providers Care Environmental Maintenance Worker Name Role Phone Blanca Fernández MD Primary [...] Comments Blood Pressure 135/84 05/10/2021 11:31 PM VICE PRESIDENT OF NURSING Pulse 65 05/10/2021 11:31 PM VICE PRESIDENT OF NURSING Temperature 36.6 C (97.9 F) 05/10/2021 9:41 PM VICE PRESIDENT OF NURSING Respiratory Rate 18 05/10/2021 11:31 PM VICE PRESIDENT OF NURSING Oxygen Saturation 100% 05/10/2021 11:31 PM VICE PRESIDENT OF NURSING Inhaled Oxygen Concentration - - Weight 66.2 kg (146 lb) 05/10/2021 9:41 PM VICE PRESIDENT OF NURSING Height 158.8 cm (5' 2.5) 05/10/2021 9:41 PM VICE PRESIDENT OF NURSING Body Mass Index 26.28 05/10/2021 9:41 PM VICE PRESIDENT OF NURSING Plan of Treatment Health Maintenance Due Date [...] Health Maintenance Insurance MEDICARE MEDICARE Care Teams Environmental Maintenance Worker Relationship Specialty Start Date End Date Blanca Fernández MD [address] [place] [address] [place] [address] PCP - General Pre K Teacher 11/14/16
--- OUTSIDE RECORDS SUMMARY | 2025-01-08 11:11 | XMS_ITS | Clinical Summary ---
Author Organization [employer] Address [address] [place] [address] Care Team Providers Care Wheel Inspector Name Role Phone Provider, No Pcp Primary Care Provider Unavailab le Source Comments [facility],non-owned Affiliates and Associated Physician Practices is amultiple site organization consisting of ambulatory clinics and hospital sitesin [place], [place], [place] and [place]. This disclosure is being madepursuant to the Care Everywhere program and may not contain all information available regarding this patient. Last updated 18.[employer] Medications * Be aware that medications may [...] Description 11/04/2024 11:00 AM CDT Office Visit [facility] - [place] [address] [place] [phone] Salvador Schulte MD Metabolic dysfunction-associate d steatotic [...] Description 08/30/2025 11:30 AM CDT Office Visit [facility] - [place] [address] [place] [phone] Salvador Schulte MD [address] [place] [address] [place] [address] Health Maintenance Due Date Last Done Comments [...] prior to your last dose Insurance MEDICARE [facility] Address: [facility] [address] [place] [address] MEDICARE SELF PAY NO INSURANCE Member Subscriber Plan / Payer (Ef fective for All Dates) Name:Sam Nguyen Member ID:Not on file Relation to Subscriber:Not on file Name:SAM NGUYEN Subscriber ID:Not on file (Home) Address: [address] [place] [address] Payer ID:Not on file Group ID:Not on file Type:Self Pay Address: [facility] Care Teams Wheel Inspector Relationship Specialty Start Date End Date Provider, No Pcp PCP - General 11/02/24
[2025-01-08 13:14] LABS: Vitamin B12 854.0 pg/mL (239-931)
== END 2025-01-08 11:01 | disposition home or self-care (01) ==
PROVIDERS: PCP Family Medicine; Visit Provider Nurse Practitioner
DX: D53.9 Nutritional anemia, unspecified (principal); D61.818 Other pancytopenia
CPT/HCPCS: 36415; 82607; 82746

== ENCOUNTER 2025-01-27 08:22 | Outpatient (CLI) | payer MEDICARE, SELFPAY ==
--- NOTE | ~2025-01-27 | US_ITS ---
US abdomen limited INDICATION: Cirrhosis of the liver PROCEDURE: Realtime right upper abdominal ultrasound. COMPARISON: 01/16/2024 FINDINGS: The pancreas is normal without focal mass or pancreatic ductal dilation. Liver surface is irregular. The call bladder is surgically absent with expected prominence of the common bile duct measuring 9 mm. There is normal directional flow in the portal vein. Pancreas not well visualized due to bowel gas. There is normal directional flow in the portal vein. IMPRESSION: 1: Cirrhosis of the liver. Reviewed, dictated and finalized at location O. IMPRESSION: 1: Cirrhosis of the liver.
== END 2025-01-27 08:23 | disposition home or self-care (01) ==
LOC: GOSHIMG 08:23
PROVIDERS: PCP Internal Medicine Gastroenterology; Visit Provider Nurse Practitioner Family
DX: K74.60 Unspecified cirrhosis of liver (principal)
CPT/HCPCS: 76705

== ENCOUNTER 2025-04-08 14:31 | Outpatient (CLI) | payer MEDICARE, OTHER, SELFPAY ==
--- OUTSIDE RECORDS SUMMARY | 2025-04-08 13:30 | XMS_ITS | Encounter Summary ---
Author Organization [email or web address] Address [address] [place] [address] Care Team Providers Care Health Commissioner Name Role Phone Unavailable Primary Care Provider Unavailabl e Reason for Visit * Reason Comments Establish Care Encounter Details Date Type Department Care Team (Late st Contact Info) Description 04/08/2025 1:30 PM COMPOUNDER HELPER Office Visit [facility] Oncology and Hematology - [place] [address] [facility] [address] [place] [address] Aiden Shannon MD [address] [facility] [facility] [place] [address] Chronic anemia (Primary Dx) Social History Tobacco Use Types Packs/Day Years Used Date Smoking Tobacco: Never Smokeless Tobacco: Never Alcohol Use Standard Drinks/Week Comments Never 0 (1 standard drink = 0.6 oz pur e alcohol) Comments Unknown Sex and Gender Information Value Date Recorded Sex Assigned at Not on file Legal Sex Female 3:35 PM CDT Gender Identity Not on file Sexual Orientation Not on file documented as of this encounter Last Filed Vital Signs Vital Sign Reading Time Taken Comments Blood Pressure 108/52 04/08/2025 1:39 PM COMPOUNDER HELPER Pulse 61 04/08/2025 1:39 PM COMPOUNDER HELPER Temperature 37.1 C (98.7 F) 04/08/2025 1:39 PM COMPOUNDER HELPER Respiratory Rate 15 04/08/2025 1:39 PM COMPOUNDER HELPER Oxygen Saturation 95% 04/08/2025 1:39 PM COMPOUNDER HELPER Inhaled Oxygen Concentration - - Weight 67.2 kg (148 lb 3.2 oz) 04/08/2025 1:39 P M COMPOUNDER HELPER Height 160 cm (5' 3) 04/08/2025 1:39 PM COMPOUNDER HELPER Body Mass Index 26.25 04/08/2025 1:39 PM COMPOUNDER HELPER documented in this encounter Progress Notes * Aiden Shannon MD - 04/08/2025 1:42 PM CST Hematology-oncology consult Note Requesting Physician Primary Care Physician No primary care provider on file. Problem list There is no problem list on file for this patient. Previous TREATMENT ? Measurable Disease ? Reason for Visit Aimee Prieto is a 75 y.o. female who was referred for consultation for pancytopenia. History of present illness This is a pleasant 75-year-old female with history of nonalcoholic steatohepatitis/liver cirrhosis diagnosed 4 years ago along with history of type 2 diabetes, hypertension and GERD referred to me for anemia. She has been complaining of tiredness and fatigue and feels cold all the time. She denies any bleeding including melena and hematochezia. Denies being a vegetarian. Denies any previous history of stomach surgeries. She is taking oral iron once a day. Patient had EGD done on October 05, 2024 that showed gastritis with nonbleeding esophageal varices and gastric polyps. She denies any chest pain and shortness of breath. Her labs from January 2025 showed WBC 4.0 hemoglobin 11.6 and platelet 226,000. No other new complaints. Past Medical History Past Medical History: Diagnosis Date Diabetes mellitus (CMS/HCC) Hypertension Liver cirrhosis secondary to FERREIRA Surgical History Past Surgical History: Procedure Laterality Date HX ANKLE SURGERY HX CATARACT REMOVAL HX CHOLECYSTECTOMY HX TUBAL & ECTOPIC REMOVAL Medications Current Outpatient Medications Medication Sig Dispense Refill cholecalciferol, Vitamin D3, 50 mcg (2,000 unit) Tablet Take 4,000 Units by mouth daily. ferrous sulfate 325 mg (65 mg iron) tablet Take 325 mg by mouth daily. losartan-hydroCHLOROthiazide (HYZAAR) 100-25 mg tablet Take 1 Tablet by mouth daily. metFORMIN (GLUCOPHAGE) 500 mg tablet Take 500 mg by mouth daily. omeprazole (PriLOSEC) 20 mg Capsule, Delayed Release(E.C.) Take 20 mg by mouth daily before breakfast. propranoloL (INDERAL) 10 mg tablet Take 10 mg by mouth 2 times daily. No current facility-administered medications for this visit. Allergies No Known Allergies Immunizations: There is no immunization history on file for this patient. Family History Family History Problem Relation Name Age of Onset Heart Disease Father No Known Problems Mother No Known Problems Sister Diabetes Sister No Known Problems Child No Known Problems Child No Known Problems Child Social History Social History Tobacco Use Smoking status: Never Smokeless tobacco: Never Substance Use Topics Alcohol use: Never Review of Systems Constitutional: Patient did not mention fever; no night sweats; no anorexia; no weight loss; no fatique NEENT: Patient did not mention headache; no change in vision; no change in hearing; no sore throat;no dysphagia Respiratory: Patient did not mention shortness of breath; no pleuritic chest pain; no cough; no hemoptysis Cardiac: Patient did not mention cardiac-like chest pain; no palpitations; no orthopnea; no PND; noDOE Breasts: Patient did not mention tenderness; no masses GI: Patient did not mention abdominal pain; no nausea; no vomiting; no diarrhea; no hematochezia; no melena : Patient did not mention dysuria; no frequency; no hesitancy; no hematuria APRN: Musculosketetal: Patient did not mention bone pain; no arthralgia; no joint swelling; no myalgia; Skin: Patient did not mention pruritis; no rash; no petechiae; no ecchymoses Endocrine: Patient did not mention polydipsia; no polyuria; no unusual weight gain Neuro: Patient did not mention headache; no change in vision; no sensory changes; no muscle weakness; no confusion; no seizures Psych: Patient did not mention anxiety; no depression; Physical Exam Vitals: As per nursing note Constitutional: Well developed, well nourished, no acute distress, non-toxic appearance Teeth and gum. No signs of infection or swelling. Eyes: PERRL, conjunctiva normal HEENT: Atraumatic, external ears normal, nose normal, oropharynx moist, no pharyngeal exudates. no sinus tenderness Neck- normal range of motion, no tenderness, supple Respiratory: No respiratory distress, normal breath sounds, no rales, no wheezing Cardiovascular: Normal rate, normal rhythm, no murmurs, no gallops, no rubs GI: Soft, nondistended, normal bowel sounds, nontender, no splenomegaly, no hepatomegaly, no mass, no rebound, no guarding : No costovertebral angle tenderness Musculoskeletal: No edema, no tenderness, no deformities. Back- no tenderness Integument: Well hydrated, no rash, Digits and nails inspection normal Lymphatic: No lymphadenopathy noted Neurologic: Alert & oriented x 3, CN 2-12 normal, normal motor function, normal sensory function, no focal deficits noted Psychiatric: Speech and behavior appropriate ? labs No results found for this or any previous visit (from the past 24 hours). Labs from January 04, 2025 showed WBC 4 hemoglobin 11.6 platelet 126,000 creatinine 0.7 iron 93 saturation 36 total bilirubin 1.4 B12 854 Pathology ? Imaging & Other Studies Performance Status? Assessment / Plan: ? Pancytopenia. This is a 75-year-old pleasant female with history of hypertension, type 2 diabetes, GERD and liver cirrhosis secondary to nonalcoholic steatohepatitis referred to me for pancytopenia. She has been symptomatic with some tiredness and fatigue and feeling cold most of the time. Denies any bleeding including melena and hematochezia. She is taking oral iron once a day. Patienthad EGD done on October 05, 2024 showed gastritis with nonbleeding esophageal varices and gastric polyps. Her pancytopenia secondary to liver cirrhosis. I will check further workup for pancytopenia that would include iron studies, soluble transferrin receptor, vitamin B12 level and methylmalonic acid level. I recommended regular exercise weight loss and avoidance of alcohol and Tylenol. She has seen by Dr. Salvador Schulte at [facility] for the management of liver cirrhosis. I have answered all the questions the patient satisfaction. Follow-up in 2 weeks. Liver cirrhosis/FERREIRA. Patient will follow-up with Dr. Schulte at [facility]. Hypertension. Patient is on Hyzaar. Nonbleeding esophageal varices. She is on propranolol. Type 2 diabetes. Patient is on metformin. Thank you very much for allowing me to participate in Aimee Prieto's evaluation and management. Please feel free to contact if I can be of any further assistance in your patient???s care requiring hematology or oncology evaluation. Sincerely, ? ? Aiden Shannon M.D. cell TOBACCO COUNSELING She is not a tobacco/nicotine user. Aiden Shannon MD ,04/08/2025 2:20 PM ? Total time spent 60 minutes, two third of the total time spent counseling patient [id number]. CC:? OUNDER HELPER documented in this encounter Plan of Treatment Upcoming Encounters Date Type Department Care Team (Late st Contact Info) Description 04/22/2025 4:30 PM COMPOUNDER HELPER Telephone Check Up [facility] Oncology and Hematology - [place] [address] [place] [address] Analia Gomez MD [address] [place] [address] Scheduled Orders Name Type Priority Associated Diagnoses Orde r Schedule CBC WITH DIFFERENTIAL Lab Stat Chronic anemia Expected: 04/08/2025, Expires: 04/08/2026 COMPREHENSIVE METABOLIC PANEL Lab Stat Chronic anemia Expected: 04/08/2025, Expires: 04/08/2026 FERRITIN Lab Routine Chronic anemia Expected: 04/08/2025, Expires: 04/08/2026 IRON, TIBC, AND PERCENT SATURATION Lab Routine Chronic anemia Expected: 04/08/2025, Expires: 04/08/2026 METHYLMALONIC ACID Lab Routine Chronic anemia Expected: 04/08/2025, Expires: 04/08/2026 TRANSFERRIN RECEPTOR TFR SOLUBLE Lab Routine Chronic anemia Expected: 04/08/2025, Expires: 04/08/2026 VITAMIN B12 AND FOLATE Lab Routine Chronic anemia Expected: 04/08/2025, Expires: 04/08/2026 documented as of this encounter Visit Diagnoses Diagnosis Chronic anemia- Primary Anemia, unspecified documented in this encounter
[2025-04-08 14:51] LABS: Hematocrit 38.2 % (37.0-47.0); Hemoglobin 12.5 g/dL (12.0-15.0); Immature Granulocyte Percent A 0.2 % (0-0.5); Lymphocytes Absolute Auto 1.45 K/mm3 (0.9-3.2); Mean Corpuscular HGB Conc 32.7 g/dl (32-36); Mean Corpuscular Hemoglobin 33.0 pg (26-34); Mean Corpuscular Volume 100.8 fl (80-100); Nucleated Red Blood Cells Absolute Auto 0.000 K/mm3 (0.0-0.012); Nucleated Red Blood Cells Perc 0.0 % (0.0-0.2); Platelet Count Result 143 k/mm3 (150-375); Red Blood Count 3.79 M/mm3 (4.2-5.4); White Blood Count 5.8 K/mm3 (4.5-10.0)
[2025-04-08 16:19] LABS: Alanine Aminotransferase 55 U/L (6-35); Albumin Level 3.9 g/dL (3.5-5.1); Alkaline Phosphatase 113 U/L (38-126); Anion Gap 5 mmol/L (4-12); Aspartate Amino Transferase 88 U/L (14-36); Bilirubin,Total 1.6 mg/dL (0.2-1.3); Blood Urea Nitrogen 10 mg/dL (7-17); Calcium 9.9 mg/dL (8.4-10.2); Carbon Dioxide 27 mmol/L (22-30); Chloride 110 mmol/L (98-107); Estimated Glomerular Filt Rate > 60; Glucose 78 mg/dL (65-110); Potassium 4.2 mmol/L (3.4-5.0); Sodium 142 mmol/L (137-145); Total Protein 7.8 g/dL (6.3-8.2)
[2025-04-08 16:21] LABS: Iron 121 ug/dL (37-170)
[2025-04-08 16:33] LABS: Percent Iron Saturation 49 % (20-50)
[2025-04-08 17:02] LABS: Ferritin 260.00 ng/mL (11.1-264)
[2025-04-08 17:30] LABS: Vitamin B12 900.0 pg/mL (239-931)
--- OUTSIDE RECORDS SUMMARY | 2025-04-08 20:34 | XMS_ITS | Clinical Summary ---
Author Organization [facility] Address [address] [place] [address] Care Team Providers Care Seaming Machine Operator Name Role Phone Provider, No Pcp Primary Care Provider Unavailab le Source Comments [facility],non-owned Affiliates and Associated Physician Practices is amultiple site organization consisting of ambulatory clinics and hospital sitesin [place], [place], [place] and [place]. This disclosure is being madepursuant to the Care Everywhere program and may not contain all information available regarding this patient. Last updated 18.[employer] Medications * Be aware that medications may [...] (four) tablets by mouth once daily Active Social History Tobacco Use Types Packs/Day [...] Description 08/30/2025 11:30 AM CDT Office Visit [facility] - [place] [address] [place] [address], [place] [phone] Salvador Schulte MD [address] [place] [address] [place] [address] Health Maintenance Due Date Last Done Comments [...] of 3 - Risk 3-dose series) 2009 Respiratory Syncytial Virus (RSV) Vaccine Pt: or over 60 yrs (1 - 1-dose 75+ series) 2024 DEPRESSION SCREENING 06/03/2024 COVID-19 VACCINE (2023-2 5 season) 2025 INFLUENZA VACCINE (#1) 2025 HIB VACCINE Aged [...] General On track( 025 11:35 AM CDT) Belle Jung RN Note: Expected end date: ongoing Interventions: Take all medications as prescribed Let your doctor know right away about any changes in your medications Make sure to request a refill of your medication at least one week prior to your last dose Insurance MEDICARE [facility] MEDICARE SELF PAY NO INSURANCE Member Subscriber Plan / Payer (Ef fective for All Dates) Name:Sam Nguyen Member ID:Not on file Relation to Subscriber:Not on file Name:SAM NGUYEN Subscriber ID:Not on file (Home) Address: [address] [place] [address] Payer ID:Not on file Group ID:Not on file Type:Self Pay Address: [facility] Care Teams Seaming Machine Operator Relationship Specialty Start Date End Date Provider, No Pcp PCP - General 11/02/24
--- OUTSIDE RECORDS SUMMARY | 2025-04-08 20:34 | XMS_ITS | Clinical Summary ---
Author Organization [facility] Address [address] [place] [address] Care Team Providers Care Wire Preparation Machine Tender Name Role Phone Blanca Fernández MD Primary Care Provider [phone] Allergies No known active allergies Medications polyethylene [...] Comments Blood Pressure 135/84 05/10/2021 11:31 PM JOB HAND Pulse 65 05/10/2021 11:31 PM JOB HAND Temperature 36.6 C (97.9 F) 05/10/2021 9:41 PM JOB HAND Respiratory Rate 18 05/10/2021 11:31 PM JOB HAND Oxygen Saturation 100% 05/10/2021 11:31 PM JOB HAND Inhaled Oxygen Concentration - - Weight 66.2 kg (146 lb) 05/10/2021 9:41 PM JOB HAND Height 158.8 cm (5' 2.5) 05/10/2021 9:41 PM JOB HAND Body Mass Index 26.28 05/10/2021 9:41 PM JOB HAND Plan of Treatment Health Maintenance Due Date Last Done Comments Hepatitis C Virus (HCV) Screening 1950 TdaP Immunization 1949 Cologuard 1994 Immunochemical Fecal Occult Blood 1994 Pneumococcal Immunization (5 0+ years) (1 of 1 - PCV) 1999 Zoster Immunization (1 of 2) 1999 Medicare Initial AWV [id number] 04/03/2015 Respiratory Syncytial Virus (RSV) Immunization (Adult) (1 - 1-dose 75+ series) 2024 Influenza Immunization (#1) 2025 SARS-COV-2 Immunization ( season) 2025 06/06/2021, 04/22/2021 Colonoscopy 11/07/2026 11/07/2016 Colorectal Cancer Screening 11/07/2026 [...] Recently Relevant to Health Maintenance Insurance MEDICARE Care Teams Wire Preparation Machine Tender Relationship Specialty Start Date End Date Blanca Fernández MD [address] [place] [address] [place] [address] PCP - General Edging Machine Operator 11/14/16
--- OUTSIDE RECORDS SUMMARY | 2025-04-08 20:34 | XMS_ITS | Clinical Summary ---
Author Organization [facility] Address [address] [place] [address] Care Team Providers Care Garland Machine Operator Name Role Phone Unavailable Primary Care Provider Unavailabl e Allergies No known active allergies Medications cholecalciferol, Vitamin D3, 50 mcg (2,000 unit) Tablet Take 4,000 Units by mouth daily. Active ferrous sulfate 325 mg (65 mg iron) tablet Take 325 mg by mouth daily. Active losartan-hydroCH LOROthiazide (HYZAAR) 100-25 mg tablet Take 1 Tablet by mouth daily. Active metFORMIN (GLUCOPHAGE) 500 mg tablet Take 500 mg by mouth daily. Active omeprazole (PriLOSEC) 20 mg Capsule, Delayed Release(E.C.) Take 20 mg by mouth daily before breakfast. Active propranoloL (INDERAL) 10 mg tablet Take 10 mg by mouth 2 times daily. Active Active Problems No known active problems Encounters Date Type Department Care Team Description 04/08/2025 1:30 PM ENGINE DYNAMOMETER TESTER Office Visit [facility] Oncology and Hematology - [place] [address] [address] Aiden Shannon MD Chronic anemia (Primary Dx) from Last 3 Months Family History Medical History Relation Name Comments No Known Problems Child 1 No Known Problems Child 2 No Known Problems Child 3 Heart Disease Father No Known Problems Mother No Known Problems Sister 1 Diabetes Sister 2 Relation Name Status Comments Child 1 Alive Child 2 Alive Child 3 Alive Father Mother Sister 1 Alive Sister 2 Alive Social History Tobacco Use Types Packs/Day Years [...] Comments Blood Pressure 108/52 04/08/2025 1:39 PM ENGINE DYNAMOMETER TESTER Pulse 61 04/08/2025 1:39 PM ENGINE DYNAMOMETER TESTER Temperature 37.1 C (98.7 F) 04/08/2025 1:39 PM ENGINE DYNAMOMETER TESTER Respiratory Rate 15 04/08/2025 1:39 PM ENGINE DYNAMOMETER TESTER Oxygen Saturation 95% 04/08/2025 1:39 PM ENGINE DYNAMOMETER TESTER Inhaled Oxygen Concentration - - Weight 67.2 kg (148 lb 3.2 oz) 04/08/2025 1:39 P M ENGINE DYNAMOMETER TESTER Height 160 cm (5' 3) 04/08/2025 1:39 PM ENGINE DYNAMOMETER TESTER Body Mass Index 26.25 04/08/2025 1:39 PM ENGINE DYNAMOMETER TESTER Plan of Treatment Upcoming Encounters Date Type Department Care Team (Late st Contact Info) Description 04/22/2025 4:30 PM ENGINE DYNAMOMETER TESTER Telephone Check Up [facility] Oncology and Hematology - [place] [address] [place] [address] Analia Gomez MD [address] [place] [address] Health Maintenance Due Date Last Done Comments DTAP/TDAP/TD VACCINES (1 - Tdap) 1968 Traditional Medicare (ACO) Annual Wellness Visit 04/05 PNEUMOCOCCAL VACCINE 50+ YEARS (1 of 1 - PCV) 04/05/19 99 ZOSTER VACCINE (1 of 2) 1999 OSTEOPOROSIS SCREENING 2014 RSV VACCINE (60+ or ) (1 - 1-dose 75+ series) 2024 INFLUENZA VACCINE (#1) 2025 COLORECTAL SCREENING Discontinued 11/07/2016 Colorectal Cancer Screening Discontinued FIT-DNA Q 3 years Discontinued FIT/FOBT Q 1 year Discontinued Flex Sig/CT Colonography Q 5 years Discontinued Insurance MEDICARE PART A AND B
== END 2025-04-08 14:32 | disposition home or self-care (01) ==
PROVIDERS: PCP Family Medicine; Visit Provider Internal Medicine Hematology & Oncology
DX: D64.9 Anemia, unspecified (principal)
CPT/HCPCS: 36415; 80053; 82607; 82728; 82746; 83540; 83550; 83921; 84238; 85025